=== PATIENT | male | born 1945 | race Caucasian/White ===

== ENCOUNTER 2018-06-04 14:42 | Inpatient (IN) ==
[2018-06-04 16:07] VITALS: BMI 29.3
[2018-06-04] MEDS ORDERED: HYDROCODONE/APAP 7.5 MG/325 MG TABLET PO PRN (16:09)
[2018-06-04] MEDS ORDERED: NICOTINE 14 MG PATCH TD PRN (16:09)
[2018-06-04] MEDS ORDERED: MORPHINE SULFATE 4mg INJECTION IVP PRN (16:09)
[2018-06-04] MEDS ORDERED: ACETAMINOPHEN 325 MG TABLET PO PRN (16:09)
[2018-06-04] MEDS ORDERED: ONDANSETRON 4 MG/2 ML INJECTION IVP PRN (16:09)
--- NOTE | 2018-06-04 16:24 | History & Physical Report ---
History of Present Illness Date: 06/04/18 Chief complaint: weakness HPI: This is a 73 year old male with history of atrial fibrillation, hypertension, CAD, CVA, and hyperlipidemia who presented to [facility] with generalized weakness. He was doing well until 10am this morning. He had just eaten breakfast and went to the bathroom when he had a large amount of diarrhea. He denies any dark or tarry stools. He immediately became very weak all over and had to help himself to the floor. It took him 2 hours to get to the kitchen, where the phone is in his home, to call 911. EMS arrived and found him lying on his kitchen floor. His blood pressure was in the 80's upon their arrival. In the [facility], his blood pressure improved significantly after 1 liter of normal saline. However, his heart rate was found to be in david 140-150 range in a-fib. He was given diltiazem IV and it improved to the 90's. Other findings in the ER were a WBC of 18, hemoglobin 11.4, 7% bands, creatinine of 1.54, and lactate of 4.4. Urinalysis was non-infectious. Chest xray showed nothing acute. Per verbal report, his stool was hemoccult positive. He had 2 more loose stools while in the ER. He was given a second liter of normal saline as well as 1 gram of rocephin and transferred here for further care. Upon my evaluation, he says he feels somewhat better. He remembers all of the events of today. He feels like he is going to have another episode of diarrhea and requests a bedpan. He says he has been on antibiotics recently, but he doesn't remember what for. He also says he was on a blood thinner for his a-fib , but doesn't remember the name. Neither of these medications are in the bag of medications that he brought with him. Review of Systems - Constitutional Comments: no weight loss, + fatigue today - EENMT EENMT Comments: no headache, sore throat, ear pain, or nasal discharge. - Cardiovascular Cardiovascular Comments: no chest pain, + palpitations, no leg edema, no orthopnea - Respiratory Respiratory Comments: no cough, no SOA, + wheezing - Gastrointestinal Gastrointestinal Comments: + diarrhea, no vomiting, + abdominal pain, no patient reported melena or hematemesis - Neurological Neurological Comments: no syncope or seizure, + generalized weakness Past Medical History Medical History Updates: Hypertension. CHF. iron deficiency anemia. Diabetes type II. CVA. tobacco abuse. atrial fibrillation. Hyperlipidemia Surgical History: Lumbar back X2 Family History: Diabetes Family History: As Above - Social History Smoking status: Current every day smoker Packs per day: 0.5 Substance use type: does not use Alcohol intake frequency: does not drink Current occupational exposures/hazards: No Does patient use chewing tobacco?: No Current residence: Apartment/Private Home Medications Home Medications Medication Instructions Recorded Confirmed Type Bumetanide Tab [Bumex 1 mg Tab] 1 mg PO BID 02/07/18 02/07/18 History Calcium Carbonate/Vitamin D3 2 each PO DAILY 02/07/18 02/07/18 History [Calcium 500-Vit D3 200 Tablet] Carvedilol [Coreg] 1 tab PO BIDWM 02/07/18 02/07/18 History Cyclobenzaprine [Flexeril] 10 mg PO HS 02/07/18 02/07/18 History Ferrous Sulfate 325 mg PO DAILY 02/07/18 02/07/18 History Lisinopril [Prinivil] 40 mg PO DAILY 02/07/18 02/07/18 History Loratadine 10 mg PO DAILY PRN 02/07/18 02/07/18 History Metformin HCl 1,000 mg PO WS 02/07/18 02/07/18 History Metolazone [Zaroxolyn] 2.5 mg PO DAILY 02/07/18 02/07/18 History NIFEdipine [Nifedipine ER] 90 mg PO DAILY 02/07/18 02/07/18 History Potassium Chloride [K-Tab ER] 20 meq PO DAILY 02/07/18 02/07/18 History Ranitidine [Zantac] 1 tab PO DAILY 02/07/18 02/07/18 History Apixaban [Eliquis] 5 mg PO BID #60 tab 02/09/18 Rx Aspirin *EC* [Ecotrin] 81 mg PO DAILY #30 tab 02/09/18 Rx DiltiaZEM CD [Cardizem CD 240 MG] 240 mg PO DAILY #30 cap 02/09/18 Rx DiltiaZEM CD [Cardizem CD 360 MG] 360 mg PO DAILY #30 cap 02/09/18 Rx Rosuvastatin [Crestor] 20 mg PO HS #30 tab 02/09/18 Rx Allergies Allergy/AdvReac Type Severity Reaction Status Date / Time No Known Allergies Allergy Verified 02/07/18 21:00 Exam Height/Weight/BMI: Height 5 ft 7 in Weight 85 kg Body Mass Index 29.3 - Constitutional Present: no acute distress - Routine HEENT Exam Head: Present: normocephalic, atraumatic Eye: Present: EOMI, PERRL ENT: Present: mucous membranes moist - Routine Neck Exam Present: supple - Routine Respiratory Exam Present: wheezes Comments: at bases - Routine Cardiovascular Exam Present: irregularly irregular Comments: regular rate - Routine Abdominal Exam Present: soft, tenderness, non distended Comments: tender to palpation in LUQ - Routine Extremities Exam Present: no edema, pulses intact - Routine Skin Exam Comments: Dirt and abrasions to plantar surfaces of bilateral feet - Routine Neurological Exam Present: alert, oriented X3, CN II-XII intact Results - Labs Labs: as noted in HPI - Imaging and Cardiology Chest x-ray Status: image reviewed by me (as noted in HPI) Assessment and Plan (1) Sepsis Current visit: Yes Status: Acute (2) Atrial fibrillation with RVR Current visit: No Status: Chronic (3) Generalized weakness Current visit: Yes Status: Acute (4) Diarrhea Current visit: Yes Status: Acute (5) LUIS (acute kidney injury) Current visit: Yes Status: Acute (6) Essential (primary) hypertension Current visit: No Status: Chronic (7) Atherosclerotic heart disease of [place] coronary artery without angina pectoris Problem details: Had heart cath in 01/2018 with moderate disease to LAD and RCA, treating medically. Current visit: No Status: Chronic (8) Mixed hyperlipidemia Current visit: No Status: Chronic (9) Congestive heart failure Problem details: EF 50% with echo in January 2018 Current visit: Yes Status: Chronic (10) Tobacco abuse Current visit: Yes Status: Chronic Assessment and Plan: Admit patient to ICU due to unstable vital signs just prior to transfer. Repeat basic labs,troponin, and lactate to find trend. Blood cultures pending in [place]. CT Abdomen/pelvis due to sepsis, LUQ pain, elevated lactate. Get occult stool, stool for c diff, and GI PCR panel of stool. Monitor h/h. Start protonix IV BID in the event of an UGIB and avoid blood thinners for now. Uncertain if patient is taking the Eliquis that was prescribed to him in January, as it's not in his medication bag - would hold acutely anyway. Give IVF and monitor UOP and creatinine in morning. UA was non-infectious in [facility]. Check CPK. Continue diltiazem for rate control - give 60mg oral q6hrs as we monitor BP closely. Check TSH Hold nifedipine, lisinopril, coreg, bumex, and metolazone for now. Need to reconcile home meds with pharmacy as patient's medication bag doesn't match the records. GI Prophylaxis: other Resuscitation Status: Full Code - Physician Narrative Physician: other (Layla Burgess DO) Narrative: Date: 06/04/18 Time: 161 Sepsis Assessment - Evaluation SIRS Criteria: WBC > 12,000 Severe Sepsis: lactate > 2.0 mg/dL Hospital Course Summary Disclaimer: The visit summary below is not to be considered part of the above Progress Note. Hospital Course: 06/04/18 Admit patient to ICU due to unstable vital signs just prior to transfer. Repeat basic labs,troponin, and lactate to find trend. Blood cultures pending in [place]. CT Abdomen/pelvis due to sepsis, LUQ pain, elevated lactate. Get occult stool, stool for c diff, and GI PCR panel of stool. Monitor h/h. Start protonix IV BID in the event of an UGIB and avoid blood thinners for now. Uncertain if patient is taking the Eliquis that was prescribed to him in January, as it's not in his medication bag - would hold acutely anyway. Give IVF and monitor UOP and creatinine in morning. UA was non-infectious in [place]. Check CPK. Continue diltiazem for rate control - give 60mg oral q6hrs as we monitor BP closely. Check TSH Hold nifedipine, lisinopril, coreg, bumex, and metolazone for now. Need to reconcile home meds with pharmacy as patient's medication bag doesn't match the records.
[2018-06-04] MEDS: LR 1,000 ML IV SCH (16:35)
[2018-06-04] MEDS ORDERED: LORATADINE 10 MG TABLET PO PRN (17:09)
[2018-06-04] MEDS: PIPERACILLIN/TAZOBACTAM 3.375 GM in NS 100 ML IV SCH (19:06)
[2018-06-04] MEDS: MetroNIDAZOLE PB 500 MG/100 ML BAG IV SCH (20:19)
[2018-06-04] MEDS: DiltiaZEM IR 60 MG TABLET PO SCH (20:51)
[2018-06-04] MEDS: ROSUVASTATIN 20 MG TABLET PO SCH (20:51)
[2018-06-04] MEDS: PANTOPRAZOLE 40 MG INJECTION IVP SCH (20:52)
[2018-06-05] MEDS: PIPERACILLIN/TAZOBACTAM 3.375 GM in NS 100 ML IV SCH ×2 (00:35→05:18)
[2018-06-05] MEDS: MetroNIDAZOLE PB 500 MG/100 ML BAG IV SCH ×3 (03:45→18:20)
[2018-06-05] MEDS: DiltiaZEM IR 60 MG TABLET PO SCH ×4 (06:51→20:46)
[2018-06-05] MEDS: LR 1,000 ML IV SCH ×2 (08:05→16:04)
[2018-06-05] MEDS ORDERED: NICOTINE PATCH REMOVAL TD PRN (09:00)
[2018-06-05] MEDS: PANTOPRAZOLE 40 MG INJECTION IVP SCH ×2 (09:16→20:46)
--- NOTE | 2018-06-05 09:58 | CT Scan Report ---
Indication: sepsis, abdominal pain PROCEDURE: CT abdomen pelvis wo con: Encounter: Initial Comparison: None Technique: Axial CT images were performed through the abdomen and pelvis without intravenous contrast. Coronal and sagittal two-dimensional reformats. Automated Exposure Control and Iterative Reconstruction dose reducing techniques were utilized. Findings: The lung bases are clear. Respiratory motion artifact. The unenhanced contours of the liver unremarkable. Multiple gallstones within the gallbladder extending into the gallbladder neck. The spleen is unremarkable. The pancreas, adrenal glands and kidneys are within normal limits for age. Arterial atherosclerotic plaque. No abdominal or pelvic lymphadenopathy. Bladder is normal. Prostate and rectum are normal. No free fluid. There is inflammation surrounding the splenic flexure of the colon with wall thickening. No significant diverticular disease appreciated. There are fluid-filled small and large bowel loops. The appendix is normal. No evidence of a bowel obstruction. Impression: 1. Inflammation in the splenic flexure region of the colon could represent infectious, inflammatory or ischemic colitis. 2. Cholelithiasis There is a preliminary report by [facility]. .
[2018-06-05] MEDS: CALCIUM 500 + VIT D 200 TABLET PO SCH (10:42)
[2018-06-05] MEDS: CARVEDILOL 3.125 MG TABLET PO SCH ×2 (10:42→18:33)
[2018-06-05] MEDS ORDERED: PIPERACILLIN/TAZOBACTAM 3.375 GM in D5W 100 ML IV SCH (11:00)
--- NOTE | 2018-06-05 12:42 | Progress Note ---
- Date 06/05/18 Subjective: Patient feels much better today. Has had multiple, small, loose stools that have been somewhat bloody since admission. Had a 5 beat run of asymptomatic v-tach last night. Eating breakfast when I saw him and tolerating it well. Objective Vital signs: Temperature 98.7 F 06/05/18 08:00 Pulse Rate 89 06/05/18 08:15 Respiratory Rate 33 H 06/05/18 08:15 Blood Pressure 170/74 H 06/05/18 08:00 Pulse Oximetry 84 L 06/05/18 08:15 Height/Weight/BMI: Height 5 ft 7 in Weight 86.5 kg Body Mass Index 29.3 - Constitutional Present: no acute distress - Routine Respiratory Exam Present: CTA bilaterally - Routine Cardiovascular Exam Present: RRR - Routine Abdominal Exam Present: soft, non distended Comments: mild LUQ tenderness, no r/r/g. - Routine Extremities Exam Present: no edema - Routine Skin Exam Present: intact, dry, warm - Routine Neurological Exam Present: alert, oriented X3, CN II-XII intact Results - Labs CBC & Chem 7: 06/05/18 04:12 06/05/18 04:12 Microbiology Results: Microbiology 06/04/18 14:30 Peripheral/Iv Start Blood Culture - Preliminary Culture Initiated - Results Pending 06/04/18 14:30 Peripheral/Iv Start Blood Culture - Preliminary Culture Initiated - Results Pending Assessment and Plan (1) Sepsis Current visit: Yes Status: Acute (2) Atrial fibrillation with RVR Current visit: No Status: Chronic (3) Generalized weakness Current visit: Yes Status: Acute (4) Diarrhea Current visit: Yes Status: Acute (5) LUIS (acute kidney injury) Current visit: Yes Status: Acute (6) Essential (primary) hypertension Current visit: No Status: Chronic (7) Atherosclerotic heart disease of [place] coronary artery without angina pectoris Problem details: Had heart cath in 01/2018 with moderate disease to LAD and RCA, treating medically. Current visit: No Status: Chronic (8) Mixed hyperlipidemia Current visit: No Status: Chronic (9) Congestive heart failure Problem details: EF 50% with echo in January 2018 Current visit: Yes Status: Chronic (10) Tobacco abuse Current visit: Yes Status: Chronic Assessment and Plan: Sepsis - present on admission with WBC, tachy, low BP, high lactate, LUIS Colitis - likely infectious given clinical scenario GI bleeding Atrial fibrillation with RVR V-tach, non-sustained LUIS HTN CAD Dyslipidemia CHF WBC trended up overnight, but afebrile. Blood cultures pending Lactate trended down - was 4.[address] [place] [address] Abdomen/pelvis shows colitis - likely infectious given clinical scenario. Occult stool positive - likely due to colitis - will continue BID PPI however for now and hold Eliquis. Restart pending clinical course. On Zosyn and flagyl - change to rocephin and flagyl today. C diff negative. Need to ensure patient's med list is correct tomorrow with [facility] as his list doesn't match what's in his bag of medications. Most notably eliquis. Continue diltiazem for rate control - change back to once daily dosing in the morning Restart nifedipine and coreg today D/c IVF Continue to hold bumex, lisinopril, and metolazone for now - likely need to restart soon Transfer to floor, up out of bed. DVT Prophylaxis: SCD's GI Prophylaxis: Protonix Resuscitation Status: Full Code - Time spent with patient Time with patient PN: 15 minutes - Physician Narrative Narrative: Date: 06/05/18 Time: 1230 Hospital Course Summary Disclaimer: The visit summary below is not to be considered part of the above Progress Note. Hospital Course: 06/04/18 Admit patient to ICU due to unstable vital signs just prior to transfer. Repeat basic labs,troponin, and lactate to find trend. Blood cultures pending in [place]. CT Abdomen/pelvis due to sepsis, LUQ pain, elevated lactate. Get occult stool, stool for c diff, and GI PCR panel of stool. Monitor h/h. Start protonix IV BID in the event of an UGIB and avoid blood thinners for now. Uncertain if patient is taking the Eliquis that was prescribed to him in January, as it's not in his medication bag - would hold acutely anyway. Give IVF and monitor UOP and creatinine in morning. UA was non-infectious in [place]. Check CPK. Continue diltiazem for rate control - give 60mg oral q6hrs as we monitor BP closely. Check TSH Hold nifedipine, lisinopril, coreg, bumex, and metolazone for now. Need to reconcile home meds with pharmacy as patient's medication bag doesn't match the records. 06/05/18 WBC trended up overnight, but afebrile. Blood cultures pending Lactate trended down - was 4.[address] [place] [address] Abdomen/pelvis shows colitis - likely infectious given clinical scenario. Occult stool positive - likely due to colitis - will continue BID PPI however for now and hold Eliquis. Restart pending clinical course. On Zosyn and flagyl - change to rocephin and flagyl today. C diff negative. Need to ensure patient's med list is correct tomorrow with [facility] as his list doesn't match what's in his bag of medications. Most notably eliquis. Continue diltiazem for rate control - change back to once daily dosing in the morning Restart nifedipine and coreg today D/c IVF Continue to hold bumex, lisinopril, and metolazone for now - likely need to restart soon Transfer to floor, up out of bed.
[2018-06-05] MEDS: CEFTRIAXONE 1 G in NS 100 ML IV SCH (13:57)
[2018-06-05] MEDS ORDERED: FUROSEMIDE 20 MG/2 ML INJECTION IVP ONE ×2 (18:51→20:00)
[2018-06-05] MEDS: ROSUVASTATIN 20 MG TABLET PO SCH (20:46)
--- NOTE | 2018-06-05 21:13 | XRay Report ---
EXAM: XR chest 1V HISTORY: hypoxia COMPARISON: Prior examination dated 02/07/2018. FINDINGS: The cardiomediastinal silhouette is normal. The mediastinum is not widened. The trachea is midline. The pulmonary vascularity is not engorged. The lung stroud are clear and the costophrenic angles are sharp. The bony thorax is stable. There is artifact from cardiac monitoring lead wires over the chest. IMPRESSION: No acute cardiopulmonary process is identified. .
[2018-06-06] MEDS: MetroNIDAZOLE PB 500 MG/100 ML BAG IV SCH ×3 (02:59→18:38)
[2018-06-06] MEDS: DiltiaZEM IR 60 MG TABLET PO SCH ×4 (06:10→22:10)
[2018-06-06] MEDS: PANTOPRAZOLE 40 MG INJECTION IVP SCH (08:42)
[2018-06-06] MEDS: CARVEDILOL 3.125 MG TABLET PO SCH ×2 (08:43→17:03)
[2018-06-06] MEDS: CALCIUM 500 + VIT D 200 TABLET PO SCH (08:43)
--- NOTE | 2018-06-06 12:27 | Progress Note ---
- Date 06/06/18 Subjective: Barry is feeling better. His stools have slowed down a lot. He has minimal pain to LLQ. He doesn't have much of an appetite but denies n/v. He denies feeling short of breath as long as oxygen is in place. No chest pain. He was up in his chair x1 hour this am and now feels tired. Objective Vital signs: Temperature 97.7 F 06/06/18 08:01 Pulse Rate 91 06/06/18 08:01 Respiratory Rate 18 06/06/18 08:01 Blood Pressure 137/67 06/06/18 08:01 Pulse Oximetry 90 06/06/18 08:01 Height/Weight/BMI: Height 1.7 m Weight 89.9 kg Body Mass Index 29.3 - Constitutional Present: no acute distress, well nourished, well developed - Routine HEENT Exam Head: Present: normocephalic Eye: Present: PERRL. Absent: conjunctival icterus, scleral injection - Routine Respiratory Exam Present: decreased breath sounds, wheezes (very faint) - Routine Cardiovascular Exam Present: S1, S2, irregularly irregular - Routine Abdominal Exam Present: soft, normoactive bowel sounds, tenderness (mild LLQ), non distended - Routine Extremities Exam Present: edema (trace BLE) - Routine Musculoskeletal Exam Musculoskeletal: Present: moving extremities well - Routine Skin Exam Present: intact, dry, warm - Routine Neurological Exam Present: alert, oriented X3, CN II-XII intact, normal speech - Routine Psychiatric Exam Present: normal affect, normal thought process, cooperative Results - Labs CBC & Chem 7: 06/06/18 05:08 06/06/18 05:08 Microbiology Results: Microbiology 06/04/18 14:30 Peripheral/Iv Start Blood Culture - Preliminary No Growth After 1 Day 06/04/18 14:30 Peripheral/Iv Start Blood Culture - Preliminary No Growth After 1 Day Assessment and Plan (1) Sepsis Current visit: Yes Status: Acute (2) Atrial fibrillation with RVR Current visit: No Status: Chronic (3) Atherosclerotic heart disease of [place] coronary artery without angina pectoris Problem details: Had heart cath in 01/2018 with moderate disease to LAD and RCA, treating medically. Current visit: No Status: Chronic (4) LUIS (acute kidney injury) Current visit: Yes Status: Acute (5) Generalized weakness Current visit: Yes Status: Acute (6) Congestive heart failure Problem details: EF 50% with echo in January 2018 Current visit: Yes Status: Chronic (7) Tobacco abuse Current visit: Yes Status: Chronic Assessment and Plan: Assessment Sepsis - present on admission with WBC, tachy, low BP, high lactate, LUIS Colitis - likely infectious given clinical scenario Heme positive stool/GI bleeding Atrial fibrillation with RVR V-tach, non-sustained LUIS CAD HTN Dyslipidemia CHF - chronic diastolic heart failure Chronic respiratory failure - 3L at home Plan WBC improved to 15.8. Cont metronidazole/Rocephin. Hgb down to 8.2 but stool frequency is decreasing. Cont to hold ASA/Eliquis. Cont PPI. Renal function stable - cr 1.0. Weight is climbing - resume bumex but will cont to hold metolazone and lisinopril. Resume Coreg. Continue Cardizem and nifedipine Increase activity - consult pt/ot DVT Prophylaxis: SCD's GI Prophylaxis: Protonix Resuscitation Status: Full Code - Time spent with patient Time with patient PN: 25 minutes - Physician Narrative Physician: Alex Healy MD Narrative: Date: 06/06/18 Time: 1455 Have independently interviewed & examined pt. Chart reviewed. Case D/W with CM & my GAS CHARGER. Care plan developed with my supervision; agree with above. Improving, but not back to normal. Stool frequency decreased-not feeling ab cramping or bloating. Appetite decreased. Breathing feels more short-not having cough or congestion, but laboring to breath more than baseline. Strength improving, but still very weak and tired-activities taxing. Lungs: decreased bilaterally, little air movement. No distress on O2. CV: irregular AB: soft nt, bs decreased MSE: awake alert appropriate Plan: Continue with antibiotic therapy. Increase activities as able. Diuretics restarted-BP stable. Renal status stable. WBC with gradual decrease. Will start SCD for DVT prevention-hold anticoagulates secondary to anemia and concern for GI bleed at presentation. Monitor lab. Hospital Course Summary Disclaimer: The visit summary below is not to be considered part of the above Progress Note. Hospital Course: 06/04/18 Admit patient to ICU due to unstable vital signs just prior to transfer. Repeat basic labs,troponin, and lactate to find trend. Blood cultures pending in [place]. CT Abdomen/pelvis due to sepsis, LUQ pain, elevated lactate. Get occult stool, stool for c diff, and GI PCR panel of stool. Monitor h/h. Start Protonix IV BID in the event of an UGIB and avoid blood thinners for now. Uncertain if patient is taking the Eliquis that was prescribed to him in January, as it's not in his medication bag - would hold acutely anyway. Give IVF and monitor UOP and creatinine in morning. UA was non-infectious in [place]. Check CPK. Continue diltiazem for rate control - give 60mg oral q6hrs as we monitor BP closely. Check TSH Hold nifedipine, lisinopril, Coreg, Bumex, and metolazone for now. Need to reconcile home meds with pharmacy as patient's medication bag doesn't match the records. 06/05/18 WBC trended up overnight, but afebrile. Blood cultures pending Lactate trended down - was 4.[address] [place] [address] Abdomen/pelvis shows colitis - likely infectious given clinical scenario. Occult stool positive - likely due to colitis - will continue BID PPI however for now and hold Eliquis. Restart pending clinical course. On Zosyn and Flagyl - change to Rocephin and Flagyl today. C diff negative. Need to ensure patient's med list is correct tomorrow with [facility] as his list doesn't match what's in his bag of medications. Most notably Eliquis. Continue diltiazem for rate control - change back to once daily dosing in the morning. Restart nifedipine and Coreg today. D/C IVF. Continue to hold Bumex, lisinopril, and metolazone for now - likely need to restart soon. Transfer to floor, up out of bed. 06/06/18 WBC improved to 15.8. Cont metronidazole/Rocephin. Hgb down to 8.2 but stool frequency is decreasing. Cont to hold ASA/Eliquis. Cont PPI. Renal function stable - cr 1.0. Weight is climbing - resume Bumex but will cont to hold metolazone and lisinopril. Resume Coreg. Continue Cardizem and nifedipine Increase activity - consult pt/ot
[2018-06-06] MEDS: CEFTRIAXONE 1 G in NS 100 ML IV SCH (12:39)
[2018-06-06] MEDS: PANTOPRAZOLE 40 MG TABLET PO SCH (17:03)
[2018-06-06] MEDS: ROSUVASTATIN 20 MG TABLET PO SCH (22:11)
[2018-06-06] MEDS: BUMETANIDE 1 MG TABLET PO SCH (22:11)
[2018-06-07] MEDS: MetroNIDAZOLE PB 500 MG/100 ML BAG IV SCH ×3 (03:45→18:15)
[2018-06-07] MEDS: DiltiaZEM IR 60 MG TABLET PO SCH ×4 (07:16→21:47)
[2018-06-07] MEDS: PANTOPRAZOLE 40 MG TABLET PO SCH ×2 (07:16→18:15)
--- NOTE | 2018-06-07 08:53 | XRay Report ---
INDICATION: Dyspnea PROCEDURE: CHEST 2-VIEWS UPRIGHT (PA & LAT) Encounter: Initial COMPARISON: June 05, 2018 Findings: The lungs are stable in appearance without new focal airspace consolidation. There is no pleural effusion or pneumothorax. The heart size, pulmonary vascularity and mediastinal contours are unchanged. IMPRESSION: Stable appearance of the chest without acute cardiopulmonary disease. .
[2018-06-07] MEDS: CALCIUM 500 + VIT D 200 TABLET PO SCH (09:09)
[2018-06-07] MEDS: CARVEDILOL 3.125 MG TABLET PO SCH ×2 (09:09→18:13)
[2018-06-07] MEDS: BUMETANIDE 1 MG TABLET PO SCH ×2 (09:09→21:46)
--- NOTE | 2018-06-07 11:31 | Progress Note ---
- Date 06/07/18 Subjective: Brush to show improvement. He denies any left lower quadrant abdominal pain today. He states that he has not had any diarrhea since Wednesday, and in fact, hasn't had a bowel movement since then either. He denies feeling bloated. He denies any nausea, but reports that he doesn't have much of an appetite. He states his breathing is doing well. He denies chest pain. He is not feeling as tired as he was yesterday. Objective Vital signs: Temperature 97.9 F 06/07/18 07:44 Pulse Rate 95 06/07/18 08:00 Respiratory Rate 20 06/07/18 07:44 Blood Pressure 142/63 H 06/07/18 07:44 Pulse Oximetry 90 06/07/18 07:44 Height/Weight/BMI: Height 1.7 m Weight 90.7 kg Body Mass Index 29.3 - Constitutional Present: no acute distress, well nourished, well developed - Routine HEENT Exam Head: Present: normocephalic Eye: Present: PERRL. Absent: conjunctival icterus, scleral injection - Routine Respiratory Exam Present: decreased breath sounds, wheezes, crackles - Routine Cardiovascular Exam Present: irregularly irregular - Routine Abdominal Exam Present: non tender, distended. Absent: normoactive bowel sounds (hypoactive) - Routine Extremities Exam Present: edema (trace BLE) - Routine Skin Exam Present: dry, warm - Routine Neurological Exam Present: alert, oriented X3, CN II-XII intact, normal speech - Routine Psychiatric Exam Present: normal affect, normal thought process, cooperative Results - Labs CBC & Chem 7: 06/07/18 06:04 06/07/18 06:04 Microbiology Results: Microbiology 06/04/18 14:30 Peripheral/Iv Start Blood Culture - Preliminary No Growth After 2 Days 06/04/18 14:30 Peripheral/Iv Start Blood Culture - Preliminary No Growth After 2 Days Assessment and Plan (1) Sepsis Current visit: Yes Status: Acute (2) Atrial fibrillation with RVR Current visit: No Status: Chronic (3) Atherosclerotic heart disease of [place] coronary artery without angina pectoris Problem details: Had heart cath in 01/2018 with moderate disease to LAD and RCA, treating medically. Current visit: No Status: Chronic (4) LUIS (acute kidney injury) Current visit: Yes Status: Acute (5) Generalized weakness Current visit: Yes Status: Acute (6) Congestive heart failure Problem details: EF 50% with echo in January 2018 Current visit: Yes Status: Chronic (7) Tobacco abuse Current visit: Yes Status: Chronic Assessment and Plan: Assessment Sepsis - present on admission with WBC, tachy, low BP, high lactate, LUIS Colitis - likely infectious given clinical scenario Heme positive stool/GI bleeding secondary to above Hyponatremia, not POA Atrial fibrillation with RVR V-tach, non-sustained Elevated creatinine CAD HTN Dyslipidemia CHF - chronic diastolic heart failure Chronic respiratory failure - 3L at home Plan WBC improved to 15.1. Cont metronidazole/Rocephin. Hgb 8.0 - Cont to hold ASA/Eliquis. Cont PPI. Increased abdominal distention, hypoactive bowel sounds - concerned for ileus. Start bowel regimen. Na down to 135; renal functions with increase, BUN 23 and creatinine 1.4; weight continues to trend up. 86.5 --> 90.7 kg. Requiring 5L of oxygen to maintain saturations. Bumex resumed yesterday; metolazone and lisinopril remain on hold. Yesterday's CXR personally reviewed - stable but clinically concerned about failure. Will repeat CXR in am. DVT Prophylaxis: SCD's GI Prophylaxis: Protonix Resuscitation Status: Full Code - Time spent with patient Time with patient PN: 25 minutes - Physician Narrative Physician: Alex Healy MD Narrative: Date: 06/07/18 Time: 3 Have independently interviewed and examined pt. Chart reviewed. Case discussed with my [employer]. Care plan developed with my supervision; agree with above. Doing fair. Breathing feels short-hard to take deep breaths. No much cough/ congestion. No pain with breathing. Appetite decreased-able to take water in. Slight nausea. Feels full in ab. Some ab cramping and bloating. No loose stools - reports not passing stool (feels his diarrhea 'cleaned him out') but not reporting flatus. Lungs: decreased, little air movement CV: regular AB: soft obese, slightly distended, BS decreased EXT: trace edema Plan: Will continue with Rocephin and metronidazole for coverage. Concern that breathing difficulty is being exacerbated by restrict deficit due to increase ab girth. Will check KUB/Upright. Work on bowel function. Encourage ambulation to help GI and pulm function. Hospital Course Summary Disclaimer: The visit summary below is not to be considered part of the above Progress Note. Hospital Course: 06/04/18 Admit patient to ICU due to unstable vital signs just prior to transfer. Repeat basic labs,troponin, and lactate to find trend. Blood cultures pending in [place] [place] Abdomen/pelvis due to sepsis, LUQ pain, elevated lactate. Get occult stool, stool for c diff, and GI PCR panel of stool. Monitor h/h. Start Protonix IV BID in the event of an UGIB and avoid blood thinners for now. Uncertain if patient is taking the Eliquis that was prescribed to him in January, as it's not in his medication bag - would hold acutely anyway. Give IVF and monitor UOP and creatinine in morning. UA was non-infectious in [place]. Check CPK. Continue diltiazem for rate control - give 60mg oral q6hrs as we monitor BP closely. Check TSH Hold nifedipine, lisinopril, Coreg, Bumex, and metolazone for now. Need to reconcile home meds with pharmacy as patient's medication bag doesn't match the records. 06/05/18 WBC trended up overnight, but afebrile. Blood cultures pending Lactate trended down - was 4.[address] [place] [address] Abdomen/pelvis shows colitis - likely infectious given clinical scenario. Occult stool positive - likely due to colitis - will continue BID PPI however for now and hold Eliquis. Restart pending clinical course. On Zosyn and Flagyl - change to Rocephin and Flagyl today. C diff negative. Need to ensure patient's med list is correct tomorrow with [facility] as his list doesn't match what's in his bag of medications. Most notably Eliquis. Continue diltiazem for rate control - change back to once daily dosing in the morning. Restart nifedipine and Coreg today. D/C IVF. Continue to hold Bumex, lisinopril, and metolazone for now - likely need to restart soon. Transfer to floor, up out of bed. 06/06/18 WBC improved to 15.8. Cont metronidazole/Rocephin. Hgb down to 8.2 but stool frequency is decreasing. Cont to hold ASA/Eliquis. Cont PPI. Renal function stable - cr 1.0. Weight is climbing - resume Bumex but will cont to hold metolazone and lisinopril. Resume Coreg. Continue Cardizem and nifedipine Increase activity - consult pt/ot 06/07/18 WBC improved to 15.1. Cont metronidazole/Rocephin. Hgb 8.0 - Cont to hold ASA/Eliquis. Cont PPI. Increased abdominal distention, hypoactive bowel sounds - concerned for ileus. Start bowel regimen. Na down to 135; renal functions with increase, BUN 23 and creatinine 1.4; weight continues to trend up. 86.5 --> 90.7 kg. Requiring 5L of oxygen to maintain saturations. Bumex resumed yesterday; metolazone and lisinopril remain on hold. Yesterday's CXR personally reviewed - stable but clinically concerned about failure. Will repeat CXR in am.
[2018-06-07] MEDS ORDERED: BISACODYL 10 MG SUPPOSITORY RECTALLY PRN (11:34)
[2018-06-07] MEDS: SENNA + DOCUSATE TABLET PO SCH ×2 (11:59→21:47)
[2018-06-07] MEDS: POLYETHYL GLYCOL 3350 17gm PACKET PO SCH (11:59)
[2018-06-07] MEDS: CEFTRIAXONE 1 G in D5W 100 ML IV SCH (13:24)
[2018-06-07] MEDS ORDERED: FALL RISK - PHARMACY CONSULT MC ONE (16:33)
[2018-06-07] MEDS: ALBUTEROL/IPRATROPIUM 2.5mg-0.5mg/3ml NEB AEROSOL PRN ×2 (18:25→23:16)
[2018-06-07] MEDS: ROSUVASTATIN 20 MG TABLET PO SCH (21:47)
[2018-06-08] MEDS: MetroNIDAZOLE PB 500 MG/100 ML BAG IV SCH ×3 (03:28→18:20)
[2018-06-08] MEDS: DiltiaZEM IR 60 MG TABLET PO SCH ×4 (06:29→21:27)
[2018-06-08] MEDS: PANTOPRAZOLE 40 MG TABLET PO SCH ×2 (06:29→17:07)
[2018-06-08] MEDS: BUMETANIDE 1 MG TABLET PO SCH ×2 (08:29→21:28)
[2018-06-08] MEDS: POLYETHYL GLYCOL 3350 17gm PACKET PO SCH (08:29)
[2018-06-08] MEDS: SENNA + DOCUSATE TABLET PO SCH ×2 (08:33→21:27)
[2018-06-08] MEDS: CALCIUM 500 + VIT D 200 TABLET PO SCH (08:33)
[2018-06-08] MEDS: CARVEDILOL 3.125 MG TABLET PO SCH ×2 (08:34→17:06)
--- NOTE | 2018-06-08 09:37 | XRay Report ---
INDICATION: wheezing, crackles, history of CHF PROCEDURE: CHEST 2-VIEWS UPRIGHT (PA & LAT) Encounter: Initial COMPARISON: June 07, 2018 FINDINGS: Developing airspace disease in the right lower lobe. Left lung appears clear. No pneumothorax. Trace right effusion. Heart size and mediastinal contours are stable. Pulmonary vascularity is normal. Impression: Developing right lower lobe airspace disease could be due to atelectasis or pneumonia. .
--- NOTE | 2018-06-08 09:39 | XRay Report ---
Indication: Ab distension, ? ileus PROCEDURE: XR abdomen 2V: Encounter: Initial Comparison: CT abdomen dated June 04, 2018 Findings: No free air. Scattered nondifferential air-fluid levels seen with increasing distention of small bowel measuring up to 3.4 cm in the left abdomen. Scattered colonic gas is present with a small amount of rectal gas seen. Bony structures are unremarkable. Impression: Mild small bowel distention with nondifferential air-fluid levels could represent ileus or gastroenteritis. .
[2018-06-08] MEDS: CEFTRIAXONE 1 G in D5W 100 ML IV SCH (12:24)
--- NOTE | 2018-06-08 14:13 | Progress Note ---
- Date 06/08/18 Subjective: Barry is seen this afternoon. He states that he is not feeling any better however is unable to describe how he feels. He is noted to be on 6 liters of oxygen (baseline 3) and he feels his breathing is "rough". Denies having chest pain. Noted abdominal distension. No bowel movement since 06/05/18. Objective Vital signs: Temperature 97.9 F 06/07/18 07:44 Pulse Rate 97 06/08/18 08:00 Respiratory Rate 20 06/08/18 07:39 Blood Pressure 139/62 06/08/18 07:39 Pulse Oximetry 92 06/08/18 07:39 Height/Weight/BMI: Height 1.7 m Weight 92.4 kg Body Mass Index 29.3 - Constitutional Present: no acute distress, well nourished, well developed - Routine HEENT Exam Eye: Present: EOMI ENT: Present: mucous membranes moist, dentition normal - Routine Respiratory Exam Present: diminished air movement. Absent: wheezes - Routine Cardiovascular Exam Present: RRR, S1, S2. Absent: murmur - Routine Abdominal Exam Present: soft, normoactive bowel sounds, non distended. Absent: tenderness - Routine Back/Spine/Pelvis Exam Back/Spine: Present: full ROM - Routine Skin Exam Present: intact, dry, warm - Routine Neurological Exam Present: alert, oriented X3, CN II-XII intact - Routine Lymphatic Exam Lymphatic: Absent: adenopathy - Routine Psychiatric Exam Present: cooperative Results - Labs CBC & Chem 7: 06/08/18 05:46 06/08/18 05:46 Microbiology Results: Microbiology 06/04/18 14:30 Peripheral/Iv Start Blood Culture - Preliminary No Growth After 3 Days 06/04/18 14:30 Peripheral/Iv Start Blood Culture - Preliminary No Growth After 3 Days Assessment and Plan (1) Sepsis Current visit: Yes Status: Acute (2) Atrial fibrillation with RVR Current visit: No Status: Chronic (3) Atherosclerotic heart disease of [place] coronary artery without angina pectoris Problem details: Had heart cath in 01/2018 with moderate disease to LAD and RCA, treating medically. Current visit: No Status: Chronic (4) LUIS (acute kidney injury) Current visit: Yes Status: Acute (5) Generalized weakness Current visit: Yes Status: Acute (6) Congestive heart failure Problem details: EF 50% with echo in January 2018 Current visit: Yes Status: Chronic (7) Tobacco abuse Current visit: Yes Status: Chronic Assessment and Plan: Assessment Sepsis - present on admission with WBC, tachy, low BP, high lactate, LUIS Colitis - likely infectious given clinical scenario Heme positive stool/GI bleeding secondary to above Hyponatremia, not POA Atrial fibrillation with RVR V-tach, non-sustained Elevated creatinine CAD HTN Dyslipidemia CHF - chronic diastolic heart failure Chronic respiratory failure - 3L at home Plan WBC stable at 15. Blood cultures remains negative. Cont metronidazole/Rocephin. Abd Xray revels distension. Asked nursing staff to give Dulcolax sup. Last BM 06/05 Increased oxygen demands up to 6 liters. Noted weight is up a proximal 27 kilograms since admission. Resumed Bumex 1 milligram twice a day for diuresing NA continues to trend down. Noted PO intake yesterday over 2200ML Will add oral fluid restriction of 1800ML/24hrs Continue to follow CBC and BMP daily Resuscitation Status: Full Code - Physician Narrative Physician: Alex Healy MD Narrative: Date: 06/08/18 Time: 1751 Have independently interviewed and examined pt. Chart reviewed. 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 Care plan developed with my supervision; agree with above. Not feeling as rough this evening. Did have stool output about 30 minutes post enema-helped belly to feel better. Another stool came this afternoon. Notes appetite still very decreased. Breathing fair-feels short, but little cough or congestion. Not been up moving much today due to feeling rough earlier. Lungs: decreased, occasional wheeze/crackle CV: regular Ab: soft Obese, mild distention, BS decreased EXT: trace edema MSE: awake alert Plan: Continue antibiotics. Work on bowel motivation. Add IS to help pulmonary status. Will add routine DuoNeb and budesonide to help breathing. Encourage ambulation. Monitor lab. Hospital Course Summary Disclaimer: The visit summary below is not to be considered part of the above Progress Note. Hospital Course: 06/04/18 Admit patient to ICU due to unstable vital signs just prior to transfer. Repeat basic labs,troponin, and lactate to find trend. Blood cultures pending in [place] [place] Abdomen/pelvis due to sepsis, LUQ pain, elevated lactate. Get occult stool, stool for c diff, and GI PCR panel of stool. Monitor h/h. Start Protonix IV BID in the event of an UGIB and avoid blood thinners for now. Uncertain if patient is taking the Eliquis that was prescribed to him in January, as it's not in his medication bag - would hold acutely anyway. Give IVF and monitor UOP and creatinine in morning. UA was non-infectious in [place]. Check CPK. Continue diltiazem for rate control - give 60mg oral q6hrs as we monitor BP closely. Check TSH Hold nifedipine, lisinopril, Coreg, Bumex, and metolazone for now. Need to reconcile home meds with pharmacy as patient's medication bag doesn't match the records. 06/05/18 WBC trended up overnight, but afebrile. Blood cultures pending Lactate trended down - was 4.[address] [place] [address] Abdomen/pelvis shows colitis - likely infectious given clinical scenario. Occult stool positive - likely due to colitis - will continue BID PPI however for now and hold Eliquis. Restart pending clinical course. On Zosyn and Flagyl - change to Rocephin and Flagyl today. C diff negative. Need to ensure patient's med list is correct tomorrow with [facility] as his list doesn't match what's in his bag of medications. Most notably Eliquis. Continue diltiazem for rate control - change back to once daily dosing in the morning. Restart nifedipine and Coreg today. D/C IVF. Continue to hold Bumex, lisinopril, and metolazone for now - likely need to restart soon. Transfer to floor, up out of bed. 06/06/18 WBC improved to 15.8. Cont metronidazole/Rocephin. Hgb down to 8.2 but stool frequency is decreasing. Cont to hold ASA/Eliquis. Cont PPI. Renal function stable - cr 1.0. Weight is climbing - resume Bumex but will cont to hold metolazone and lisinopril. Resume Coreg. Continue Cardizem and nifedipine Increase activity - consult pt/ot 06/07/18 WBC improved to 15.1. Cont metronidazole/Rocephin. Hgb 8.0 - Cont to hold ASA/Eliquis. Cont PPI. Increased abdominal distention, hypoactive bowel sounds - concerned for ileus. Start bowel regimen. Na down to 135; renal functions with increase, BUN 23 and creatinine 1.4; weight continues to trend up. 86.5 --> 90.7 kg. Requiring 5L of oxygen to maintain saturations. Bumex resumed yesterday; metolazone and lisinopril remain on hold. Yesterday's CXR personally reviewed - stable but clinically concerned about failure. Will repeat CXR in am. 06/08/18 WBC stable at 15. Blood cultures remains negative. Cont metronidazole/Rocephin. Abd Xray revels distension. Asked nursing staff to give Dulcolax sup. Last BM 06/05 Increased oxygen demands up to 6 liters. Noted weight is up a proximal 27 kilograms since admission. Resumed Bumex 1 milligram twice a day for diuresing NA continues to trend down. Noted PO intake yesterday over 2200ML Will add oral fluid restriction of 1800ML/24hrs Continue to follow CBC and BMP daily
[2018-06-08] MEDS: ALBUTEROL/IPRATROPIUM 2.5mg-0.5mg/3ml NEB AEROSOL SCH (20:30)
[2018-06-08] MEDS: BUDESONIDE INH.SOLN 0.5mg/2ml NEB AEROSOL SCH (20:31)
[2018-06-08] MEDS: ROSUVASTATIN 20 MG TABLET PO SCH (21:27)
[2018-06-09] MEDS: MetroNIDAZOLE PB 500 MG/100 ML BAG IV SCH ×3 (02:42→18:11)
[2018-06-09] MEDS: BUDESONIDE INH.SOLN 0.5mg/2ml NEB AEROSOL SCH ×2 (06:25→19:51)
[2018-06-09] MEDS: ALBUTEROL/IPRATROPIUM 2.5mg-0.5mg/3ml NEB AEROSOL SCH ×3 (06:25→16:19)
[2018-06-09] MEDS: DiltiaZEM IR 60 MG TABLET PO SCH ×4 (07:24→20:41)
[2018-06-09] MEDS: PANTOPRAZOLE 40 MG TABLET PO SCH ×2 (07:24→17:45)
[2018-06-09] MEDS: CALCIUM 500 + VIT D 200 TABLET PO SCH (08:41)
[2018-06-09] MEDS: BUMETANIDE 1 MG TABLET PO SCH ×2 (08:41→20:39)
[2018-06-09] MEDS: CARVEDILOL 3.125 MG TABLET PO SCH ×2 (08:41→17:45)
[2018-06-09] MEDS: POLYETHYL GLYCOL 3350 17gm PACKET PO SCH ×2 (08:42→08:50)
[2018-06-09] MEDS: SENNA + DOCUSATE TABLET PO SCH ×3 (08:42→20:40)
[2018-06-09] MEDS: CEFTRIAXONE 1 G in D5W 100 ML IV SCH (13:16)
--- NOTE | 2018-06-09 17:24 | Progress Note ---
- Date 06/09/18 Subjective: Overall Barry is feeling better. He denies feeling SOA at rest and thinks the breathing treatments have been helpful. He denies chest pain. He denies abd pain or bloating. He's had a few BM since yesterday and feels better. His appetite is still poor, but he denies n/v. He noted increase in swelling to his arms. He's working on increasing his activity - sat in the chair for a couple hours earlier today. Objective Vital signs: Temperature 97.4 F 06/09/18 15:00 Pulse Rate 77 06/09/18 16:00 Respiratory Rate 20 06/09/18 16:19 Blood Pressure 117/55 06/09/18 15:00 Pulse Oximetry 94 06/09/18 16:19 Height/Weight/BMI: Height 1.7 m Weight 92.6 kg Body Mass Index 29.3 - Constitutional Present: no acute distress, well nourished, well developed - Routine HEENT Exam Head: Present: normocephalic Eye: Present: PERRL. Absent: conjunctival icterus, scleral injection - Routine Respiratory Exam Present: decreased breath sounds, wheezes (scattered), crackles (B/L bases) - Routine Cardiovascular Exam Present: S1, S2, irregular rhythm - Routine Abdominal Exam Present: normoactive bowel sounds, non tender, distended (mild) - Routine Extremities Exam Present: edema (1+ BUE and BLE) - Routine Back/Spine/Pelvis Exam Back/Spine: Present: full ROM - Routine Musculoskeletal Exam Musculoskeletal: Present: moving extremities well - Routine Skin Exam Present: intact, dry, warm - Routine Neurological Exam Present: alert, CN II-XII intact, moving all extremities, normal speech - Routine Psychiatric Exam Present: normal affect, normal thought process, cooperative Results - Labs CBC & Chem 7: 06/09/18 04:17 06/09/18 04:17 Microbiology Results: Microbiology 06/04/18 14:30 Peripheral/Iv Start Blood Culture - Preliminary No Growth After 4 Days 06/04/18 14:30 Peripheral/Iv Start Blood Culture - Preliminary No Growth After 4 Days Assessment and Plan (1) Sepsis Current visit: Yes Status: Acute (2) Atrial fibrillation with RVR Current visit: No Status: Chronic (3) Atherosclerotic heart disease of [place] coronary artery without angina pectoris Problem details: Had heart cath in 01/2018 with moderate disease to LAD and RCA, treating medically. Current visit: No Status: Chronic (4) LUIS (acute kidney injury) Current visit: Yes Status: Acute (5) Generalized weakness Current visit: Yes Status: Acute (6) Congestive heart failure Problem details: EF 50% with echo in January 2018 Current visit: Yes Status: Chronic (7) Tobacco abuse Current visit: Yes Status: Chronic Assessment and Plan: Assessment Sepsis - present on admission with WBC, tachy, low BP, high lactate, LUIS Colitis - likely infectious given clinical scenario Heme positive stool/GI bleeding secondary to above Hyponatremia, not POA Atrial fibrillation with RVR V-tach, non-sustained Elevated creatinine CAD HTN Dyslipidemia CHF - chronic diastolic heart failure Chronic respiratory failure - 3L at home Plan Cont metronidazole/Rocephin; WBC trending down; 13.7. O2 demands slightly improved from yest but noted increased peripheral edema along with fluid pos status; currently on home dose Bumex 1 mg BID but Hctz has not been resumed. With hyponatremia, would prefer to use loop diuretic -- will give an extra 1 mg of Bumex tomorrow am for diuresis. Will also give KDur 20 mEq x1 in the am. Continue fluid restriction. Hgb stable at 8.3 -- consider resuming at least ASA; consider restarting Eliquis soon. Resume cardizem 360 mg; pt has been going in/out of a-fib -- may need to verify meds/dosing with cardiology. Per their dc in January,, his meds were: New Apixaban [Eliquis] 5 mg PO BID #60 tab Aspirin *EC* [Ecotrin] 81 mg PO DAILY #30 tab DiltiaZEM CD [Cardizem CD 360 MG] 360 mg PO DAILY #30 cap Rosuvastatin [Crestor] 20 mg PO HS #30 tab DiltiaZEM CD [Cardizem CD 240 MG] 240 mg PO DAILY #30 cap Continue Calcium Carbonate/Vitamin D3 [Calcium 500-Vit D3 200 Tablet] 2 each PO DAILY Ranitidine [Zantac] 1 tab PO DAILY NIFEdipine [Nifedipine ER] 90 mg PO DAILY Loratadine 10 mg PO DAILY PRN PRN Reason: Allergy Symptoms Lisinopril [Prinivil] 40 mg PO DAILY Metformin HCl 1,000 mg PO WS Ferrous Sulfate 325 mg PO DAILY Carvedilol [Coreg] 1 tab PO BIDWM Bumetanide Tab [Bumex 1 mg Tab] 1 mg PO BID Metolazone [Zaroxolyn] 2.5 mg PO DAILY Aspirin 1 tab PO DAILY Cyclobenzaprine [Flexeril] 10 mg PO HS Potassium Chloride [K-Tab ER] 20 meq PO DAILY DVT Prophylaxis: SCD's GI Prophylaxis: Protonix Resuscitation Status: Full Code - Time spent with patient Time with patient PN: 25 minutes - Physician Narrative Physician: Alex Healy MD Narrative: Date: 06/09/18 Time: 2042 Have independently interviewed and examined pt. Chart reviewed. Case discussed with my MICROWAVE ENGINEER. Care plan developed with my supervision; agree with above. Feeling rough this evening-more SOA. Not having cough or congestion, but just harder to get air in. Ate more this evening-ab feeling more full and bloated. Passing some stool. Notes little urine output despite Bumex. Lungs: decreased, no crackles/wheeze. CV: regular AB: distended, BS decreased MSE: awake alert Plan: Did have nursing bladder scan patient - about 300cc in bladder. Encourage voids; did discuss about [place] with patient but would like to avoid if possible. WBC decreasing. Breathing still short and congested. Will recheck CBC in am and if WBC showing decrease, would start steroids -- suspect COPD/ Emysema causing some breathing problems, but also contribution of restrictive disease due to increased ab girth. Hospital Course Summary Disclaimer: The visit summary below is not to be considered part of the above Progress Note. Hospital Course: 06/04/18 Admit patient to ICU due to unstable vital signs just prior to transfer. Repeat basic labs,troponin, and lactate to find trend. Blood cultures pending in [place]. CT Abdomen/pelvis due to sepsis, LUQ pain, elevated lactate. Get occult stool, stool for c diff, and GI PCR panel of stool. Monitor h/h. Start Protonix IV BID in the event of an UGIB and avoid blood thinners for now. Uncertain if patient is taking the Eliquis that was prescribed to him in January, as it's not in his medication bag - would hold acutely anyway. Give IVF and monitor UOP and creatinine in morning. UA was non-infectious in [place]. Check CPK. Continue diltiazem for rate control - give 60mg oral q6hrs as we monitor BP closely. Check TSH Hold nifedipine, lisinopril, Coreg, Bumex, and metolazone for now. Need to reconcile home meds with pharmacy as patient's medication bag doesn't match the records. 06/05/18 WBC trended up overnight, but afebrile. Blood cultures pending Lactate trended down - was 4.[address] [place] [address] Abdomen/pelvis shows colitis - likely infectious given clinical scenario. Occult stool positive - likely due to colitis - will continue BID PPI however for now and hold Eliquis. Restart pending clinical course. On Zosyn and Flagyl - change to Rocephin and Flagyl today. C diff negative. Need to ensure patient's med list is correct tomorrow with [facility] as his list doesn't match what's in his bag of medications. Most notably Eliquis. Continue diltiazem for rate control - change back to once daily dosing in the morning. Restart nifedipine and Coreg today. D/C IVF. Continue to hold Bumex, lisinopril, and metolazone for now - likely need to restart soon. Transfer to floor, up out of bed. 06/06/18 WBC improved to 15.8. Cont metronidazole/Rocephin. Hgb down to 8.2 but stool frequency is decreasing. Cont to hold ASA/Eliquis. Cont PPI. Renal function stable - cr 1.0. Weight is climbing - resume Bumex but will cont to hold metolazone and lisinopril. Resume Coreg. Continue Cardizem and nifedipine Increase activity - consult pt/ot 06/07/18 WBC improved to 15.1. Cont metronidazole/Rocephin. Hgb 8.0 - Cont to hold ASA/Eliquis. Cont PPI. Increased abdominal distention, hypoactive bowel sounds - concerned for ileus. Start bowel regimen. Na down to 135; renal functions with increase, BUN 23 and creatinine 1.4; weight continues to trend up. 86.5 --> 90.7 kg. Requiring 5L of oxygen to maintain saturations. Bumex resumed yesterday; metolazone and lisinopril remain on hold. Yesterday's CXR personally reviewed - stable but clinically concerned about failure. Will repeat CXR in am. 06/08/18 WBC stable at 15. Blood cultures remains negative. Cont metronidazole/Rocephin. Abd Xray revels distension. Asked nursing staff to give Dulcolax sup. Last BM 06/05 Increased oxygen demands up to 6 liters. Noted weight is up a proximal 27 kilograms since admission. Resumed Bumex 1 milligram twice a day for diuresing NA continues to trend down. Noted PO intake yesterday over 2200ML Will add oral fluid restriction of 1800ML/24hrs 06/09/18 Cont metronidazole/Rocephin; WBC trending down; 13.7. O2 demands slightly improved from yest but noted increased peripheral edema along with fluid pos status; currently on home dose Bumex 1 mg BID but Hctz has not been resumed. With hyponatremia, would prefer to use loop diuretic -- will give an extra 1 mg of Bumex tomorrow am for diuresis. Will also give KDur 20 mEq x1 in the am. Continue fluid restriction. Hgb stable at 8.3 -- consider resuming at least ASA; consider restarting Eliquis soon. Resume cardizem 360 mg; pt has been going in/out of a-fib
[2018-06-09] MEDS: NS FLUSH BAG 500ml IV PRN (18:20)
[2018-06-09] MEDS: ROSUVASTATIN 20 MG TABLET PO SCH (20:40)
[2018-06-10] MEDS: MetroNIDAZOLE PB 500 MG/100 ML BAG IV SCH ×3 (02:00→17:55)
[2018-06-10] MEDS: PANTOPRAZOLE 40 MG TABLET PO SCH ×2 (06:20→17:33)
[2018-06-10] MEDS: ALBUTEROL/IPRATROPIUM 2.5mg-0.5mg/3ml NEB AEROSOL SCH ×5 (06:20→20:56)
[2018-06-10] MEDS: CALCIUM 500 + VIT D 200 TABLET PO SCH (08:32)
[2018-06-10] MEDS: BUMETANIDE 1 MG TABLET PO SCH (08:33)
[2018-06-10] MEDS: POLYETHYL GLYCOL 3350 17gm PACKET PO SCH (08:33)
[2018-06-10] MEDS: SENNA + DOCUSATE TABLET PO SCH ×2 (08:33→23:21)
[2018-06-10] MEDS: DiltiaZEM CD 360 MG CAPSULE PO SCH (08:33)
[2018-06-10] MEDS: CARVEDILOL 3.125 MG TABLET PO SCH ×2 (08:33→17:33)
[2018-06-10] MEDS: BUDESONIDE INH.SOLN 0.5mg/2ml NEB AEROSOL SCH ×2 (08:45→20:56)
[2018-06-10] MEDS ORDERED: BUMETANIDE 1 MG TABLET PO ONE (09:00)
[2018-06-10] MEDS ORDERED: METHYLPREDNISOLONE SOD SUCC 125mg/2ml INJECTION IVP ONE (11:15)
[2018-06-10] MEDS: CEFTRIAXONE 1 G in D5W 100 ML IV SCH (12:32)
--- NOTE | 2018-06-10 13:11 | Progress Note ---
- Date 06/10/18 Subjective: Barry is seen today in follow up. He states that he feels that he is improving. He notes to have erythema to right AC fold at site where labs have been drawn. This is not tender on palpation, however forearm is noted to be swollen distally. He feels that his breathing is about the same. Denies having pain. Weight continues to increase. Objective Vital signs: Temperature 97.9 F 06/10/18 07:25 Pulse Rate 86 06/10/18 11:40 Respiratory Rate 16 06/10/18 08:45 Blood Pressure 125/58 06/10/18 07:25 Pulse Oximetry 94 06/10/18 11:40 Height/Weight/BMI: Height 1.7 m Weight 93.6 kg Body Mass Index 29.3 - Constitutional Present: no acute distress, well nourished, well developed - Routine HEENT Exam Eye: Present: EOMI ENT: Present: mucous membranes moist, dentition normal - Routine Respiratory Exam Present: diminished air movement. Absent: wheezes - Routine Cardiovascular Exam Present: RRR, S1, S2. Absent: murmur - Routine Abdominal Exam Present: soft, normoactive bowel sounds, non distended. Absent: tenderness - Routine Extremities Exam Present: edema Comments: Right arm with erythema at AC site with distal swelling - Routine Skin Exam Present: intact, dry, warm - Routine Neurological Exam Present: alert, oriented X3, CN II-XII intact, moving all extremities - Routine Lymphatic Exam Lymphatic: Absent: adenopathy - Routine Psychiatric Exam Present: normal affect, normal thought process, cooperative Results - Labs CBC & Chem 7: 06/10/18 09:12 06/10/18 09:11 Microbiology Results: Microbiology 06/04/18 14:30 Peripheral/Iv Start Blood Culture - Final No Growth After 5 Days 06/04/18 14:30 Peripheral/Iv Start Blood Culture - Final No Growth After 5 Days Assessment and Plan (1) Sepsis Current visit: Yes Status: Acute (2) Atrial fibrillation with RVR Current visit: No Status: Chronic (3) Atherosclerotic heart disease of [place] coronary artery without angina pectoris Problem details: Had heart cath in 01/2018 with moderate disease to LAD and RCA, treating medically. Current visit: No Status: Chronic (4) LUIS (acute kidney injury) Current visit: Yes Status: Acute (5) Generalized weakness Current visit: Yes Status: Acute (6) Congestive heart failure Problem details: EF 50% with echo in January 2018 Current visit: Yes Status: Chronic (7) Tobacco abuse Current visit: Yes Status: Chronic Assessment and Plan: Assessment Sepsis - present on admission with WBC, tachy, low BP, high lactate, LUIS Colitis - likely infectious given clinical scenario Heme positive stool/GI bleeding secondary to above Hyponatremia, not POA Atrial fibrillation with RVR V-tach, non-sustained Elevated creatinine CAD HTN Dyslipidemia CHF - chronic diastolic heart failure Chronic respiratory failure - 3L at home Plan Will obtain venous Doppler of right upper ext to rule out DVT. Monitor erythema to right arm. Cont Rocephin. Discontinued Flagyl. Continues to have edema and weight continues to trend up. Will change Bumex to 1 mg IV- Monitor output. Will resume home Eliquis as recommended by cardiology team. Monitor for bleeding. Hgb stable at 8.3 Monitor BP- Continue on Cardizem 360mg daily. He does not need Nifedipine as long as BP is controlled. Monet Initiated Solu-Medrol to help breathing 125mg x1, then 62.5mg q 6 hours. DVT Prophylaxis: Eliquis Resuscitation Status: Full Code - Time spent with patient Time with patient PN: 25 minutes - Physician Narrative Physician: Alex Healy MD Narrative: Date: 06/10/18 Time: 1821 Have independently interviewed and examined pt. Chart reviewed. Case discussed with my FUEL QUALITY TECH. Care plan developed with my supervision; agree with above. Doing fair. Appetite with some improvements. Not having nausea. Passing some stool. Breathing with slow gains-less SOA. Little cough but congestion. Strength with improvement-easier to move with breathing better. Lungs: decreased bilaterally, occasional crackle and wheeze CV: Regular AB: soft obese with slight distention, BS decreased EXT: +1 edema bilaterally Plan: Initiated Solu-Medrol to help breathing 125mg x1, then 62.5mg q 6 hours. Bumex changed to IV to help motivate fluid. Can stop Metronidazole. Encourage activities. Wean O2 as able. Monitor lab. Hospital Course Summary Disclaimer: The visit summary below is not to be considered part of the above Progress Note. Hospital Course: 01/2018- med list from discharge on cardiology service New Apixaban [Eliquis] 5 mg PO BID #60 tab Aspirin *EC* [Ecotrin] 81 mg PO DAILY #30 tab DiltiaZEM CD [Cardizem CD 360 MG] 360 mg PO DAILY #30 cap Rosuvastatin [Crestor] 20 mg PO HS #30 tab DiltiaZEM CD [Cardizem CD 240 MG] 240 mg PO DAILY #30 cap Continue Calcium Carbonate/Vitamin D3 [Calcium 500-Vit D3 200 Tablet] 2 each PO DAILY Ranitidine [Zantac] 1 tab PO DAILY NIFEdipine [Nifedipine ER] 90 mg PO DAILY Loratadine 10 mg PO DAILY PRN PRN Reason: Allergy Symptoms Lisinopril [Prinivil] 40 mg PO DAILY Metformin HCl 1,000 mg PO WS Ferrous Sulfate 325 mg PO DAILY Carvedilol [Coreg] 1 tab PO BIDWM Bumetanide Tab [Bumex 1 mg Tab] 1 mg PO BID Metolazone [Zaroxolyn] 2.5 mg PO DAILY Aspirin 1 tab PO DAILY Cyclobenzaprine [Flexeril] 10 mg PO HS Potassium Chloride [K-Tab ER] 20 meq PO DAILY 06/04/18 Admit patient to ICU due to unstable vital signs just prior to transfer. Repeat basic labs,troponin, and lactate to find trend. Blood cultures pending in [place]. CT Abdomen/pelvis due to sepsis, LUQ pain, elevated lactate. Get occult stool, stool for c diff, and GI PCR panel of stool. Monitor h/h. Start Protonix IV BID in the event of an UGIB and avoid blood thinners for now. Uncertain if patient is taking the Eliquis that was prescribed to him in January, as it's not in his medication bag - would hold acutely anyway. Give IVF and monitor UOP and creatinine in morning. UA was non-infectious in [place]. Check CPK. Continue diltiazem for rate control - give 60mg oral q6hrs as we monitor BP closely. Check TSH Hold nifedipine, lisinopril, Coreg, Bumex, and metolazone for now. Need to reconcile home meds with pharmacy as patient's medication bag doesn't match the records. 06/05/18 WBC trended up overnight, but afebrile. Blood cultures pending Lactate trended down - was 4.[address] [place] [address] Abdomen/pelvis shows colitis - likely infectious given clinical scenario. Occult stool positive - likely due to colitis - will continue BID PPI however for now and hold Eliquis. Restart pending clinical course. On Zosyn and Flagyl - change to Rocephin and Flagyl today. C diff negative. Need to ensure patient's med list is correct tomorrow with [facility] as his list doesn't match what's in his bag of medications. Most notably Eliquis. Continue diltiazem for rate control - change back to once daily dosing in the morning. Restart nifedipine and Coreg today. D/C IVF. Continue to hold Bumex, lisinopril, and metolazone for now - likely need to restart soon. Transfer to floor, up out of bed. 06/06/18 WBC improved to 15.8. Cont metronidazole/Rocephin. Hgb down to 8.2 but stool frequency is decreasing. Cont to hold ASA/Eliquis. Cont PPI. Renal function stable - cr 1.0. Weight is climbing - resume Bumex but will cont to hold metolazone and lisinopril. Resume Coreg. Continue Cardizem and nifedipine Increase activity - consult pt/ot 06/07/18 WBC improved to 15.1. Cont metronidazole/Rocephin. Hgb 8.0 - Cont to hold ASA/Eliquis. Cont PPI. Increased abdominal distention, hypoactive bowel sounds - concerned for ileus. Start bowel regimen. Na down to 135; renal functions with increase, BUN 23 and creatinine 1.4; weight continues to trend up. 86.5 --> 90.7 kg. Requiring 5L of oxygen to maintain saturations. Bumex resumed yesterday; metolazone and lisinopril remain on hold. Yesterday's CXR personally reviewed - stable but clinically concerned about failure. Will repeat CXR in am. 06/08/18 WBC stable at 15. Blood cultures remains negative. Cont metronidazole/Rocephin. Abd Xray revels distension. Asked nursing staff to give Dulcolax sup. Last BM 06/05. Increased oxygen demands up to 6 liters. Noted weight is up a proximal 27 pounds since admission. Resumed Bumex 1 milligram twice a day for diuresing. NA continues to trend down. Noted PO intake yesterday over 2200ML. Will add oral fluid restriction of 1800ML/24hrs. 06/09/18 Cont metronidazole/Rocephin; WBC trending down; 13.7. O2 demands slightly improved from yest but noted increased peripheral edema along with fluid pos status; currently on home dose Bumex 1 mg BID but Hctz has not been resumed. With hyponatremia, would prefer to use loop diuretic -- will give an extra 1 mg of Bumex tomorrow am for diuresis. Will also give KDur 20 mEq x1 in the am. Continue fluid restriction. Hgb stable at 8.3 -- consider resuming at least ASA; consider restarting Eliquis soon. Resume cardizem 360 mg; pt has been going in/out of a-fib. 06/10/18 Obtain venous Doppler of right upper ext to rule out DVT - Negative. Monitor erythema to right arm. Cont Rocephin. Discontinued Flagyl. Continues to have edema and weight continues to trend up. Will change Bumex to 1 mg IV- Monitor output. Will resume home Eliquis as recommended by cardiology team. Monitor for bleeding. Hgb stable at 8.3 Monitor BP- Continue on Cardizem 360mg daily. He does not need Nifedipine as long as BP is controlled. Initiated Solu-Medrol to help breathing - 125mg x1, then 62.5mg q 6 hours.
[2018-06-10] MEDS: METHYLPREDNISOLONE SOD SUCC 125mg/2ml INJECTION IVP SCH ×2 (14:41→23:22)
--- NOTE | 2018-06-10 15:05 | Ultrasound Report ---
Indication: Right arm swelling, erythema at AC site PROCEDURE: US venous doppler UE RT: Encounter: Initial Comparison: None Technique: Color Doppler duplex and grayscale sonographic imaging of the right upper extremity was performed. FINDINGS: There is no evidence for acute deep venous thrombosis in the right arm. The right internal jugular, subclavian, axillary and paired brachial veins were evaluated; compression and augmentation were applied where possible. In addition, color and pulsed Doppler demonstrate appropriate spontaneous flow, cardiac pulsatility and variation with respiration. IMPRESSION: No evidence of acute DVT in the right upper extremity. .
[2018-06-10] MEDS ORDERED: NS FLUSH BAG 500ml IV PRN (16:10)
[2018-06-10] MEDS: NS FLUSH BAG 500ml IV PRN (17:55)
[2018-06-10] MEDS: SALINE FLUSH 10ml SYRINGE IVF PRN (17:55)
[2018-06-10] MEDS: ROSUVASTATIN 20 MG TABLET PO SCH (23:23)
[2018-06-10] MEDS: APIXABAN 5 MG TABLET PO SCH (23:32)
[2018-06-11] MEDS: MetroNIDAZOLE PB 500 MG/100 ML BAG IV SCH ×3 (02:47→17:48)
[2018-06-11] MEDS: METHYLPREDNISOLONE SOD SUCC 125mg/2ml INJECTION IVP SCH ×3 (03:25→15:42)
[2018-06-11] MEDS: PANTOPRAZOLE 40 MG TABLET PO SCH ×2 (07:04→17:48)
[2018-06-11] MEDS: ALBUTEROL/IPRATROPIUM 2.5mg-0.5mg/3ml NEB AEROSOL SCH ×4 (07:40→19:22)
[2018-06-11] MEDS: BUDESONIDE INH.SOLN 0.5mg/2ml NEB AEROSOL SCH ×2 (07:41→19:22)
[2018-06-11] MEDS ORDERED: DEXTROSE 50% SYRINGE 50ml (1 AMP) IVP PRN (07:43)
[2018-06-11] MEDS ORDERED: GLUCOSE ORAL GEL 40% 37.5gm PO PRN (07:43)
[2018-06-11] MEDS: DiltiaZEM CD 360 MG CAPSULE PO SCH (09:20)
[2018-06-11] MEDS: SALINE FLUSH 10ml SYRINGE IVF PRN ×4 (09:20→17:48)
[2018-06-11] MEDS: SENNA + DOCUSATE TABLET PO SCH (09:20)
[2018-06-11] MEDS: APIXABAN 5 MG TABLET PO SCH ×2 (09:20→22:49)
[2018-06-11] MEDS: POLYETHYL GLYCOL 3350 17gm PACKET PO SCH (09:21)
[2018-06-11] MEDS: CARVEDILOL 3.125 MG TABLET PO SCH ×2 (09:22→17:48)
[2018-06-11] MEDS: CALCIUM 500 + VIT D 200 TABLET PO SCH (09:22)
[2018-06-11] MEDS: INSULIN ASPART 100unit/ml INJECTION SQ PRN ×3 (10:22→22:58)
--- NOTE | 2018-06-11 11:16 | Progress Note ---
- Date 06/11/18 Subjective: Mr House is seen today in follow up. He is resting in bed without any complaints of pain. He denies feeling short of breath or having GI complaints. Remains on 4 liters of oxygen. Appetite remains good and large bowel movement this morning. He continues to have erythema and swelling of the left antecubital however, this is nontender. Objective Vital signs: Temperature 96.3 F L 06/11/18 07:34 Pulse Rate 101 H 06/11/18 08:00 Respiratory Rate 20 06/11/18 07:43 Blood Pressure 149/68 H 06/11/18 07:34 Pulse Oximetry 94 06/11/18 07:43 Height/Weight/BMI: Height 1.7 m Weight 93.6 kg Body Mass Index 29.3 - Constitutional Present: no acute distress, well nourished, well developed - Routine HEENT Exam Eye: Present: EOMI ENT: Present: mucous membranes moist, dentition normal - Routine Respiratory Exam Present: CTA bilaterally, diminished air movement (bases). Absent: wheezes - Routine Cardiovascular Exam Present: RRR, S1, S2. Absent: murmur - Routine Abdominal Exam Present: soft, normoactive bowel sounds, non distended. Absent: tenderness - Routine Extremities Exam Present: edema (right arm, BLE) Comments: Erythema to the right antecubital - Routine Skin Exam Present: intact, dry, warm - Routine Neurological Exam Present: alert, oriented X3, CN II-XII intact - Routine Lymphatic Exam Lymphatic: Absent: adenopathy - Routine Psychiatric Exam Present: normal affect, cooperative Results - Labs CBC & Chem 7: 06/11/18 04:10 06/11/18 04:10 Microbiology Results: Microbiology 06/04/18 14:30 Peripheral/Iv Start Blood Culture - Final No Growth After 5 Days 06/04/18 14:30 Peripheral/Iv Start Blood Culture - Final No Growth After 5 Days Assessment and Plan Assessment and Plan: Assessment Sepsis - present on admission with WBC, tachy, low BP, high lactate, LUIS Colitis - likely infectious given clinical scenario Heme positive stool/GI bleeding secondary to above Hyponatremia, not POA Atrial fibrillation with RVR V-tach, [id number] beat run on 06/04/2018 -no recurrence on telemetry Elevated creatinine CAD HTN Dyslipidemia CHF - chronic diastolic heart failure -EF 50% Chronic respiratory failure - 3L at home Plan Continue to monitor erythema of the right antecubital as well as distal edema. Venous Doppler negative for DVT Into need is on Bumex twice a day Aird weight continues to trend up. Check chest x-ray today. Was started on Solu-Medrol to help with breathing last evening Continues on IV Rocephin daily Monitor BP- Continue on Cardizem 360mg daily. He does not need Nifedipine as long as BP is controlled. Hemoglobin remains stable, monitor for evidence of bleeding. Given resume of home Eliquis 06/11/2018-6:40 PM-I examined the patient independently. I reviewed this chart, the patient history, and the BUSINESS TEST ANALYST's/PA's documented findings as above. We discussed and formulated the assessment and plan as above with the additions below.-Dr. Angelo The patient was seen this evening in his room. He was sitting up in a chair. He states he is feeling better. He has improved energy. He states he has been having loose stools, but they improved when he was not given MiraLAX and Senokot this morning. He continues to have some swelling in his right forearm and hand as well as some erythema in the right antecubital fossa, but he states the erythema and swelling have improved. It is not painful. He states his breathing is slowly improving. Exam he is alert and in no acute distress. Chest reveals crackles in the bases. Cardiovascular reveals an irregularly irregular rhythm. Telemetry reveals atrial fibrillation. Abdomen is soft and nontender with positive bowel sounds. Right upper extremity reveals 2+ pitting edema in the hand and forearm as well as some erythema in the antecubital fossa. Patient states this is improved. He has 1+ pedal and pretibial edema. DATE OF PROCEDURE-echocardiogram February 07, 2018 There is no pericardial effusion. IMPRESSION 1. Wall motion abnormalities as described above suggestive of coronary artery disease with ejection fraction of about 50%. 2. Left atrial dilation. 3. Mitral annulus calcification with mild mitral regurgitation. 4. Mild aortic insufficiency. 5. Mild tricuspid regurgitation with estimated pulmonary artery systolic pressure of 20. Chest x-ray PA and lateral today on my read is clear Impression Sepsis-likely GI source, resolved Right wrist with negative GI panel-improving on Rocephin and Flagyl Heme positive stool/GI bleeding secondary to above-Eliquis restarted yesterday A. fib with RVR 6 beat run of nonsustained V. tach on day of admission, no recurrence Chronic diastolic heart failure and mild systolic heart failure with EF of 50% Anemia Elevated creatinine-improved overall Hypertension-he is currently on Coreg, diltiazem and IV Bumex therapy blood pressure control-he is still off of hydrochlorothiazide, lisinopril, nifedipine , and oral Bumex 1 mg by mouth twice a day. On admission, it was also listed that he was on Zaroxolyn 2.5 mg daily, but this is not on his home med list now Chronic lower extremity edema Weight up 3.7 kg since admission Right upper extremity edema and erythema-improving per patient, venous Doppler was negative for DVT Hyperglycemia is secondary to steroids Chronic Respiratory failure on 3 L of oxygen at home Plan Continue Rocephin and Flagyl. Recheck CBC with differential and basic metabolic profile tomorrow. Consider switch to oral Bumex, may need to add Zaroxolyn as well. Low-sodium diet and 1.8 liter fluid restriction Treatment down to 3 L of oxygen as tolerated. Monitor Accu-Cheks and give sliding scale insulin regarding hyperglycemia from steroids DC Solu-Medrol and start prednisone 30 mg daily tomorrow - Physician Narrative Narrative: Date: 06/11/18 Time: 1054 Hospital Course Summary Disclaimer: The visit summary below is not to be considered part of the above Progress Note. Hospital Course: 01/2018- med list from discharge on cardiology service New Apixaban [Eliquis] 5 mg PO BID #60 tab Aspirin *EC* [Ecotrin] 81 mg PO DAILY #30 tab DiltiaZEM CD [Cardizem CD 360 MG] 360 mg PO DAILY #30 cap Rosuvastatin [Crestor] 20 mg PO HS #30 tab DiltiaZEM CD [Cardizem CD 240 MG] 240 mg PO DAILY #30 cap Continue Calcium Carbonate/Vitamin D3 [Calcium 500-Vit D3 200 Tablet] 2 each PO DAILY Ranitidine [Zantac] 1 tab PO DAILY NIFEdipine [Nifedipine ER] 90 mg PO DAILY Loratadine 10 mg PO DAILY PRN PRN Reason: Allergy Symptoms Lisinopril [Prinivil] 40 mg PO DAILY Metformin HCl 1,000 mg PO WS Ferrous Sulfate 325 mg PO DAILY Carvedilol [Coreg] 1 tab PO BIDWM Bumetanide Tab [Bumex 1 mg Tab] 1 mg PO BID Metolazone [Zaroxolyn] 2.5 mg PO DAILY Aspirin 1 tab PO DAILY Cyclobenzaprine [Flexeril] 10 mg PO HS Potassium Chloride [K-Tab ER] 20 meq PO DAILY 06/04/18 Admit patient to ICU due to unstable vital signs just prior to transfer. Repeat basic labs,troponin, and lactate to find trend. Blood cultures pending in [place]. CT Abdomen/pelvis due to sepsis, LUQ pain, elevated lactate. Get occult stool, stool for c diff, and GI PCR panel of stool. Monitor h/h. Start Protonix IV BID in the event of an UGIB and avoid blood thinners for now. Uncertain if patient is taking the Eliquis that was prescribed to him in January, as it's not in his medication bag - would hold acutely anyway. Give IVF and monitor UOP and creatinine in morning. UA was non-infectious in [place]. Check CPK. Continue diltiazem for rate control - give 60mg oral q6hrs as we monitor BP closely. Check TSH Hold nifedipine, lisinopril, Coreg, Bumex, and metolazone for now. Need to reconcile home meds with pharmacy as patient's medication bag doesn't match the records. 06/05/18 WBC trended up overnight, but afebrile. Blood cultures pending Lactate trended down - was 4.[address] [place] [address] Abdomen/pelvis shows colitis - likely infectious given clinical scenario. Occult stool positive - likely due to colitis - will continue BID PPI however for now and hold Eliquis. Restart pending clinical course. On Zosyn and Flagyl - change to Rocephin and Flagyl today. C diff negative. Need to ensure patient's med list is correct tomorrow with [facility] as his list doesn't match what's in his bag of medications. Most notably Eliquis. Continue diltiazem for rate control - change back to once daily dosing in the morning. Restart nifedipine and Coreg today. D/C IVF. Continue to hold Bumex, lisinopril, and metolazone for now - likely need to restart soon. Transfer to floor, up out of bed. 06/06/18 WBC improved to 15.8. Cont metronidazole/Rocephin. Hgb down to 8.2 but stool frequency is decreasing. Cont to hold ASA/Eliquis. Cont PPI. Renal function stable - cr 1.0. Weight is climbing - resume Bumex but will cont to hold metolazone and lisinopril. Resume Coreg. Continue Cardizem and nifedipine Increase activity - consult pt/ot 06/07/18 WBC improved to 15.1. Cont metronidazole/Rocephin. Hgb 8.0 - Cont to hold ASA/Eliquis. Cont PPI. Increased abdominal distention, hypoactive bowel sounds - concerned for ileus. Start bowel regimen. Na down to 135; renal functions with increase, BUN 23 and creatinine 1.4; weight continues to trend up. 86.5 --> 90.7 kg. Requiring 5L of oxygen to maintain saturations. Bumex resumed yesterday; metolazone and lisinopril remain on hold. Yesterday's CXR personally reviewed - stable but clinically concerned about failure. Will repeat CXR in am. 06/08/18 WBC stable at 15. Blood cultures remains negative. Cont metronidazole/Rocephin. Abd Xray revels distension. Asked nursing staff to give Dulcolax sup. Last BM 06/05. Increased oxygen demands up to 6 liters. Noted weight is up a proximal 27 pounds since admission. Resumed Bumex 1 milligram twice a day for diuresing. NA continues to trend down. Noted PO intake yesterday over 2200ML. Will add oral fluid restriction of 1800ML/24hrs. 06/09/18 Cont metronidazole/Rocephin; WBC trending down; 13.7. O2 demands slightly improved from yest but noted increased peripheral edema along with fluid pos status; currently on home dose Bumex 1 mg BID but Hctz has not been resumed. With hyponatremia, would prefer to use loop diuretic -- will give an extra 1 mg of Bumex tomorrow am for diuresis. Will also give KDur 20 mEq x1 in the am. Continue fluid restriction. Hgb stable at 8.3 -- consider resuming at least ASA; consider restarting Eliquis soon. Resume cardizem 360 mg; pt has been going in/out of a-fib. 7/13/18 Obtain venous Doppler of right upper ext to rule out DVT - Negative. Monitor erythema to right arm. Cont Rocephin. Discontinued Flagyl. Continues to have edema and weight continues to trend up. Will change Bumex to 1 mg IV- Monitor output. Will resume home Eliquis as recommended by cardiology team. Monitor for bleeding. Hgb stable at 8.3 Monitor BP- Continue on Cardizem 360mg daily. He does not need Nifedipine as long as BP is controlled. Initiated Solu-Medrol to help breathing - 125mg x1, then 62.5mg q 6 hours. 06/11/18 Continue to monitor erythema of the right antecubital as well as distal edema. Venous Doppler negative for DVT Into need is on Bumex twice a day Aird weight continues to trend up. Check chest x-ray today. Was started on Solu-Medrol to help with breathing last evening Continues on IV Rocephin daily Monitor BP- Continue on Cardizem 360mg daily. He does not need Nifedipine as long as BP is controlled. Hemoglobin remains stable, monitor for evidence of bleeding. Given resume of home Eliquis
[2018-06-11] MEDS: CEFTRIAXONE 1 G in D5W 100 ML IV SCH (12:45)
[2018-06-11] MEDS: ROSUVASTATIN 20 MG TABLET PO SCH (22:49)
[2018-06-12] MEDS: MetroNIDAZOLE PB 500 MG/100 ML BAG IV SCH ×2 (03:54→12:05)
[2018-06-12] MEDS: PANTOPRAZOLE 40 MG TABLET PO SCH ×2 (06:36→18:05)
[2018-06-12] MEDS: INSULIN ASPART 100unit/ml INJECTION SQ PRN ×3 (06:49→21:12)
[2018-06-12] MEDS: BUDESONIDE INH.SOLN 0.5mg/2ml NEB AEROSOL SCH ×2 (07:24→20:46)
[2018-06-12] MEDS: ALBUTEROL/IPRATROPIUM 2.5mg-0.5mg/3ml NEB AEROSOL SCH ×4 (07:24→20:45)
[2018-06-12] MEDS: DiltiaZEM CD 360 MG CAPSULE PO SCH (08:29)
[2018-06-12] MEDS: CARVEDILOL 3.125 MG TABLET PO SCH ×2 (08:29→18:05)
[2018-06-12] MEDS: PredniSONE 10 MG TABLET PO SCH (08:30)
[2018-06-12] MEDS: APIXABAN 5 MG TABLET PO SCH ×2 (08:30→21:10)
[2018-06-12] MEDS: CALCIUM 500 + VIT D 200 TABLET PO SCH (08:30)
--- NOTE | 2018-06-12 10:29 | XRay Report ---
INDICATION: hypoxia, worsening PROCEDURE: CHEST 2-VIEWS UPRIGHT (PA & LAT) Encounter: Initial COMPARISON: June 08, 2018 FINDINGS: Persistent airspace disease in the right lower lobe with increasing small effusions. Upper lung stroud are clear. No pneumothorax. Heart size and mediastinal contours are stable. Pulmonary vascularity is unchanged. Impression: Increasing pleural fluid. .
[2018-06-12] MEDS: CEFTRIAXONE 1 G in D5W 100 ML IV SCH (14:39)
--- NOTE | 2018-06-12 15:59 | Progress Note ---
- Date 06/12/18 Subjective: Barry has no complaints whatsoever. He states his breathing has been good. He denies any abdominal pain or bloating. He has been eating and drinking well. He denies seeing any blood in his stools, but hasn't really been paying attention. He thinks the swelling in his arm is improving. He denies feeling dizzy. He has been sleeping well at night. His biggest concern is when he will be able to go home. Objective Vital signs: Temperature 97.1 F 06/11/18 23:00 Pulse Rate 70 06/12/18 00:00 Respiratory Rate 16 06/12/18 11:25 Blood Pressure 143/68 H 06/11/18 23:00 Pulse Oximetry 92 06/12/18 11:25 Height/Weight/BMI: Height 1.7 m Weight 90.6 kg Body Mass Index 29.3 - Constitutional Present: no acute distress, well nourished, well developed - Routine HEENT Exam Head: Present: normocephalic Eye: Present: PERRL. Absent: conjunctival icterus, scleral injection - Routine Respiratory Exam Present: decreased breath sounds (coarse breath sounds throughout and decreased in bases) - Routine Cardiovascular Exam Present: irregularly irregular - Routine Abdominal Exam Present: normoactive bowel sounds, tenderness, distended (mild) - Routine Extremities Exam Present: edema (edema to right arm and bilateral legs, 1+) - Routine Skin Exam Present: intact, dry, warm - Routine Neurological Exam Present: alert, oriented X3, moving all extremities, normal speech - Routine Psychiatric Exam Present: normal affect, normal thought process, cooperative Results - Labs CBC & Chem 7: 06/12/18 04:40 06/12/18 04:40 Microbiology Results: Microbiology 06/04/18 14:30 Peripheral/Iv Start Blood Culture - Final No Growth After 5 Days 06/04/18 14:30 Peripheral/Iv Start Blood Culture - Final No Growth After 5 Days Assessment and Plan Assessment and Plan: Assessment Sepsis - present on admission with WBC, tachy, low BP, high lactate, LUIS - likely GI source, resolved Colitis - likely infectious given clinical scenario Heme positive stool/GI bleeding secondary to above Hyponatremia, not POA Atrial fibrillation with RVR Thrombocytosis, not POA V-tach, [id number]-3 beat run on 06/04/2018 -no recurrence on telemetry Elevated creatinine, improved CAD with an EF of 50%, mild mitral regurgitation, mild aortic insufficiency and mild tricuspid regurgitation Hypertension-he is currently on Coreg, diltiazem and IV Bumex therapy blood pressure control-he is still off of hydrochlorothiazide, lisinopril, nifedipine , and oral Bumex 1 mg by mouth twice a day. On admission, it was also listed that he was on Zaroxolyn 2.5 mg daily, but this is not on his home med list now Dyslipidemia CHF - chronic diastolic heart failure -EF 50% Chronic respiratory failure - 3L at home Plan White count has increased to 19,000, however, the patient remains on prednisone 30 mg daily. Blood cultures are negative after 5 days. Continue on Rocephin, day #9. DC Metronidazole. Hemoglobin has drifted down to 7.7, but the patient has been asymptomatic and he denies any hematochezia. Iron studies are pending as is Vitamin B12. He continues on Eliquis for A. fib. Platelets are increased at 425, monitor for now. Sodium is low but stable at 130. Renal function is stable. Weight has gone down by 3 kg despite having a fluid positive balance. He remains on 4 L of oxygen. Will discuss diuretic management with Dr. Angelo. Consider reviewing with Dr. Bush, professional nursing assistant for Dr. Grider, prior to DC. 06/12/2018-6:30 PM-I examined the patient independently. I reviewed this chart, the patient history, and the SHAKE OUT WORKER's/PA's documented findings as above. We discussed and formulated the assessment and plan as above with the additions below.-Dr. Angelo Patient was seen this evening in his room. He states his breathing seems better. His appetite is improving. He continues to have lower extremity edema and edema in the right upper extremity. He has no pain in his right arm. He continues to have some mild erythema in the antecubital fossa but it has not worsened. Venous Doppler was negative for DVT. On exam he is alert and oriented 3. Chest reveals some mild crackles in the bases. Cardiovascular reveals an irregularly irregular rhythm. He does have history of A. fib. Abdomen is soft and nontender. He has 2+ lower extremity edema. He has 2+ right upper extremity edema with some mild erythema in the antecubital fossa. Impression and plan Continue Bumex for diuresis. Discussed tomorrow with cardiology regarding CHF. It's uncertain if he has been on Zaroxolyn recently. The patient does not know the names of his medications. He states he feels ready to go home. He is currently on 4 L of oxygen, at home he is on 3 L continuously. Hemoglobin was down slightly today. Will recheck tomorrow. Check iron studies and B-12. DVT Prophylaxis: Eliquis GI Prophylaxis: Protonix Resuscitation Status: Full Code - Physician Narrative Narrative: Date: 06/12/18 Time: 1549 Hospital Course Summary Disclaimer: The visit summary below is not to be considered part of the above Progress Note. Hospital Course: 01/2018- med list from discharge on cardiology service New Apixaban [Eliquis] 5 mg PO BID #60 tab Aspirin *EC* [Ecotrin] 81 mg PO DAILY #30 tab DiltiaZEM CD [Cardizem CD 360 MG] 360 mg PO DAILY #30 cap Rosuvastatin [Crestor] 20 mg PO HS #30 tab DiltiaZEM CD [Cardizem CD 240 MG] 240 mg PO DAILY #30 cap Continue Calcium Carbonate/Vitamin D3 [Calcium 500-Vit D3 200 Tablet] 2 each PO DAILY Ranitidine [Zantac] 1 tab PO DAILY NIFEdipine [Nifedipine ER] 90 mg PO DAILY Loratadine 10 mg PO DAILY PRN PRN Reason: Allergy Symptoms Lisinopril [Prinivil] 40 mg PO DAILY Metformin HCl 1,000 mg PO WS Ferrous Sulfate 325 mg PO DAILY Carvedilol [Coreg] 1 tab PO BIDWM Bumetanide Tab [Bumex 1 mg Tab] 1 mg PO BID Metolazone [Zaroxolyn] 2.5 mg PO DAILY Aspirin 1 tab PO DAILY Cyclobenzaprine [Flexeril] 10 mg PO HS Potassium Chloride [K-Tab ER] 20 meq PO DAILY 06/04/18 Admit patient to ICU due to unstable vital signs just prior to transfer. Repeat basic labs,troponin, and lactate to find trend. Blood cultures pending in [place]. CT Abdomen/pelvis due to sepsis, LUQ pain, elevated lactate. Get occult stool, stool for c diff, and GI PCR panel of stool. Monitor h/h. Start Protonix IV BID in the event of an UGIB and avoid blood thinners for now. Uncertain if patient is taking the Eliquis that was prescribed to him in January, as it's not in his medication bag - would hold acutely anyway. Give IVF and monitor UOP and creatinine in morning. UA was non-infectious in [place]. Check CPK. Continue diltiazem for rate control - give 60mg oral q6hrs as we monitor BP closely. Check TSH Hold nifedipine, lisinopril, Coreg, Bumex, and metolazone for now. Need to reconcile home meds with pharmacy as patient's medication bag doesn't match the records. 06/05/18 WBC trended up overnight, but afebrile. Blood cultures pending Lactate trended down - was 4.[address] [place] [address] Abdomen/pelvis shows colitis - likely infectious given clinical scenario. Occult stool positive - likely due to colitis - will continue BID PPI however for now and hold Eliquis. Restart pending clinical course. On Zosyn and Flagyl - change to Rocephin and Flagyl today. C diff negative. Need to ensure patient's med list is correct tomorrow with [facility] as his list doesn't match what's in his bag of medications. Most notably Eliquis. Continue diltiazem for rate control - change back to once daily dosing in the morning. Restart nifedipine and Coreg today. D/C IVF. Continue to hold Bumex, lisinopril, and metolazone for now - likely need to restart soon. Transfer to floor, up out of bed. 06/06/18 WBC improved to 15.8. Cont metronidazole/Rocephin. Hgb down to 8.2 but stool frequency is decreasing. Cont to hold ASA/Eliquis. Cont PPI. Renal function stable - cr 1.0. Weight is climbing - resume Bumex but will cont to hold metolazone and lisinopril. Resume Coreg. Continue Cardizem and nifedipine Increase activity - consult pt/ot 06/07/18 WBC improved to 15.1. Cont metronidazole/Rocephin. Hgb 8.0 - Cont to hold ASA/Eliquis. Cont PPI. Increased abdominal distention, hypoactive bowel sounds - concerned for ileus. Start bowel regimen. Na down to 135; renal functions with increase, BUN 23 and creatinine 1.4; weight continues to trend up. 86.5 --> 90.7 kg. Requiring 5L of oxygen to maintain saturations. Bumex resumed yesterday; metolazone and lisinopril remain on hold. Yesterday's CXR personally reviewed - stable but clinically concerned about failure. Will repeat CXR in am. 06/08/18 WBC stable at 15. Blood cultures remains negative. Cont metronidazole/Rocephin. Abd Xray revels distension. Asked nursing staff to give Dulcolax sup. Last BM 06/05. Increased oxygen demands up to 6 liters. Noted weight is up a proximal 27 pounds since admission. Resumed Bumex 1 milligram twice a day for diuresing. NA continues to trend down. Noted PO intake yesterday over 2200ML. Will add oral fluid restriction of 1800ML/24hrs. 06/09/18 Cont metronidazole/Rocephin; WBC trending down; 13.7. O2 demands slightly improved from yest but noted increased peripheral edema along with fluid pos status; currently on home dose Bumex 1 mg BID but Hctz has not been resumed. With hyponatremia, would prefer to use loop diuretic -- will give an extra 1 mg of Bumex tomorrow am for diuresis. Will also give KDur 20 mEq x1 in the am. Continue fluid restriction. Hgb stable at 8.3 -- consider resuming at least ASA; consider restarting Eliquis soon. Resume cardizem 360 mg; pt has been going in/out of a-fib. 06/10/18 Obtain venous Doppler of right upper ext to rule out DVT - Negative. Monitor erythema to right arm. Cont Rocephin. Discontinued Flagyl. Continues to have edema and weight continues to trend up. Will change Bumex to 1 mg IV- Monitor output. Will resume home Eliquis as recommended by cardiology team. Monitor for bleeding. Hgb stable at 8.3 Monitor BP- Continue on Cardizem 360mg daily. He does not need Nifedipine as long as BP is controlled. Initiated Solu-Medrol to help breathing - 125mg x1, then 62.5mg q 6 hours. 06/11/18 Continue to monitor erythema of the right antecubital as well as distal edema. Venous Doppler negative for DVT Into need is on Bumex twice a day Aird weight continues to trend up. Check chest x-ray today. Was started on Solu-Medrol to help with breathing last evening Continues on IV Rocephin daily Monitor BP- Continue on Cardizem 360mg daily. He does not need Nifedipine as long as BP is controlled. Hemoglobin remains stable, monitor for evidence of bleeding. Given resume of home Eliquis 06/12/18 White count has increased to 19,000, however, the patient remains on prednisone 30 mg daily. Blood cultures are negative after 5 days. Continue on Rocephin, day #9. DC Metronidazole. Hemoglobin has drifted down to 7.7, but the patient has been asymptomatic and he denies any hematochezia. Iron studies are pending as is Vitamin B12. He continues on Eliquis for A. fib. Platelets are increased at 425, monitor for now. Sodium is low but stable at 130. Renal function is stable. Weight has gone down by 3 kg despite having a fluid positive balance. He remains on 4 L of oxygen. Will discuss diuretic management with Dr. Angelo. Consider reviewing with Dr. Bush, professional nursing assistant for Dr. Grider, prior to DC.
[2018-06-12] MEDS: ROSUVASTATIN 20 MG TABLET PO SCH (21:10)
[2018-06-13] MEDS: PANTOPRAZOLE 40 MG TABLET PO SCH (06:05)
[2018-06-13] MEDS: INSULIN ASPART 100unit/ml INJECTION SQ PRN ×4 (06:05→20:58)
[2018-06-13] MEDS: BUDESONIDE INH.SOLN 0.5mg/2ml NEB AEROSOL SCH ×2 (06:55→20:14)
[2018-06-13] MEDS: ALBUTEROL/IPRATROPIUM 2.5mg-0.5mg/3ml NEB AEROSOL SCH ×4 (06:55→20:14)
[2018-06-13] MEDS: DiltiaZEM CD 360 MG CAPSULE PO SCH (10:07)
[2018-06-13] MEDS: PredniSONE 10 MG TABLET PO SCH (10:07)
[2018-06-13] MEDS: CARVEDILOL 3.125 MG TABLET PO SCH ×2 (10:08→18:38)
[2018-06-13] MEDS: CALCIUM 500 + VIT D 200 TABLET PO SCH (10:08)
[2018-06-13] MEDS ORDERED: IRON - PHARMACY CONSULT MC ONE (10:53)
--- NOTE | 2018-06-13 11:09 | Progress Note ---
- Date 06/13/18 Subjective: The patient was seen this morning in his room. He continues to have diarrhea but states it is not black or bloody. He denies any abdominal pain. He states he had a colonoscopy about 2 years ago and thinks it was normal. He does not recall having an EGD in the past. He states he feels short of breath at times. He has been on oxygen since at least January of this year and he states he is on it for his heart. He is a smoker, but denies diagnosis of COPD. Right arm swelling is improving. Objective Vital signs: Temperature 96 F L 06/13/18 07:42 Pulse Rate 76 06/13/18 07:42 Respiratory Rate 20 06/13/18 07:42 Blood Pressure 159/62 H 06/13/18 07:42 Pulse Oximetry 96 06/13/18 07:42 Height/Weight/BMI: Height 1.7 m Weight 91.7 kg Body Mass Index 29.3 Comments: Afebrile, heart rate 76, blood pressure 159/62, O2 sat 96% on 4 L GEN-alert, oriented, no acute distress HEENT-sclera anicteric, oropharynx is moist NECK-supple CV-irregularly irregular. A. fib on telemetry CHEST-decreased breath sounds in the bases ABD-soft, nontender with positive bowel sounds -no Tejeda EXT-bilateral lower extremity edema, right arm edema is improving NEURO-no focal deficits SKIN-warm and dry, erythema to right antecubital fossa is stable Results - Labs CBC & Chem 7: 06/13/18 04:01 06/13/18 04:01 Labs: Hemoglobin continues to slowly drift down. Neutrophils are 88%. Bands are 0. Calcium 7.8. B 12 is normal at 459. Iron is 16 which is low, percent sat is 4 which is low. TIBC is normal at 374 Microbiology Results: Microbiology 06/04/18 14:30 Peripheral/Iv Start Blood Culture - Final No Growth After 5 Days 06/04/18 14:30 Peripheral/Iv Start Blood Culture - Final No Growth After 5 Days Assessment and Plan (1) Atrial fibrillation with RVR Current visit: No Status: Chronic (2) Atherosclerotic heart disease of [place] coronary artery without angina pectoris Problem details: Had heart cath in 01/2018 with moderate disease to LAD and RCA, treating medically. Current visit: No Status: Chronic (3) Sepsis Current visit: Yes Status: Acute (4) LUIS (acute kidney injury) Current visit: Yes Status: Acute (5) Generalized weakness Current visit: Yes Status: Acute (6) Congestive heart failure Problem details: EF 50% with echo in January 2018 Current visit: Yes Status: Chronic (7) Tobacco abuse Current visit: Yes Status: Chronic Assessment and Plan: Assessment Sepsis - present on admission with WBC, tachy, low BP, high lactate, LUIS - likely GI source, resolved Colitis seen on CT- likely infectious given clinical scenario Heme positive stool/GI bleeding secondary to above Iron Deficiency anemia -hemoglobin continues to trend down -globin 10.3 on admission and 7.2 today Hyponatremia, not POA Atrial fibrillation with RVR Thrombocytosis, not POA V-tach, [id number] beat run on 06/04/2018 -no recurrence on telemetry Elevated creatinine-resolved CAD with an EF of 50%, mild mitral regurgitation, mild aortic insufficiency and mild tricuspid regurgitation Hypertension-he is currently on Coreg, diltiazem and IV Bumex therapy blood pressure control-he is still off of hydrochlorothiazide, lisinopril, nifedipine , and oral Bumex 1 mg by mouth twice a day. On admission, it was also listed that he was on Zaroxolyn 2.5 mg daily, but this is not on his home med list now Dyslipidemia CHF - chronic diastolic heart failure -EF 50% Chronic respiratory failure - 3L at home Plan The patient continues to have a slow trend down in his hemoglobin. It is 7.2 today. It was 10.3 on admission. On admission he had colitis with bloody stools and a close was discontinued. Bloody stools have resolved. Eliquis was restarted on the but will be discontinued today due to continued drop in hemoglobin. Will obtain serial hemoglobins now. Give Protonix IV. Start clear liquids. Dr. Gibson was consulted for possible EGD/colonoscopy. This likely will not be done for a couple of days until Eliquis can get out of his system. 2 units of blood will be typed and crossed and on hold. The patient states that he is reluctant to have a blood transfusion but if he was critical and not able to give consent, he is okay with us giving him blood. Metronidazole was discontinued yesterday. We'll discontinue Rocephin today. The patient continues to have diarrhea. Will repeat GI panel. We'll consult 3 times a day regarding nonsustained V. tach, help with CHF, and help determine if he is stable for EGD and colonoscopy if needed. I question if the patient has COPD. Decrease prednisone to 20 mg daily Discussed with patient. - Physician Narrative Narrative: Date: 06/13/18 Time: 1105 Hospital Course Summary Disclaimer: The visit summary below is not to be considered part of the above Progress Note. Hospital Course: 01/2018- med list from discharge on cardiology service New Apixaban [Eliquis] 5 mg PO BID #60 tab Aspirin *EC* [Ecotrin] 81 mg PO DAILY #30 tab DiltiaZEM CD [Cardizem CD 360 MG] 360 mg PO DAILY #30 cap Rosuvastatin [Crestor] 20 mg PO HS #30 tab DiltiaZEM CD [Cardizem CD 240 MG] 240 mg PO DAILY #30 cap Continue Calcium Carbonate/Vitamin D3 [Calcium 500-Vit D3 200 Tablet] 2 each PO DAILY Ranitidine [Zantac] 1 tab PO DAILY NIFEdipine [Nifedipine ER] 90 mg PO DAILY Loratadine 10 mg PO DAILY PRN PRN Reason: Allergy Symptoms Lisinopril [Prinivil] 40 mg PO DAILY Metformin HCl 1,000 mg PO WS Ferrous Sulfate 325 mg PO DAILY Carvedilol [Coreg] 1 tab PO BIDWM Bumetanide Tab [Bumex 1 mg Tab] 1 mg PO BID Metolazone [Zaroxolyn] 2.5 mg PO DAILY Aspirin 1 tab PO DAILY Cyclobenzaprine [Flexeril] 10 mg PO HS Potassium Chloride [K-Tab ER] 20 meq PO DAILY 06/04/18 Admit patient to ICU due to unstable vital signs just prior to transfer. Repeat basic labs,troponin, and lactate to find trend. Blood cultures pending in [facility] [place] Abdomen/pelvis due to sepsis, LUQ pain, elevated lactate. Get occult stool, stool for c diff, and GI PCR panel of stool. Monitor h/h. Start Protonix IV BID in the event of an UGIB and avoid blood thinners for now. Uncertain if patient is taking the Eliquis that was prescribed to him in January, as it's not in his medication bag - would hold acutely anyway. Give IVF and monitor UOP and creatinine in morning. UA was non-infectious in [facility]. Check CPK. Continue diltiazem for rate control - give 60mg oral q6hrs as we monitor BP closely. Check TSH Hold nifedipine, lisinopril, Coreg, Bumex, and metolazone for now. Need to reconcile home meds with pharmacy as patient's medication bag doesn't match the records. 06/05/18 WBC trended up overnight, but afebrile. Blood cultures pending Lactate trended down - was 4.[address] [facility] [address] Abdomen/pelvis shows colitis - likely infectious given clinical scenario. Occult stool positive - likely due to colitis - will continue BID PPI however for now and hold Eliquis. Restart pending clinical course. On Zosyn and Flagyl - change to Rocephin and Flagyl today. C diff negative. Need to ensure patient's med list is correct tomorrow with [facility] as his list doesn't match what's in his bag of medications. Most notably Eliquis. Continue diltiazem for rate control - change back to once daily dosing in the morning. Restart nifedipine and Coreg today. D/C IVF. Continue to hold Bumex, lisinopril, and metolazone for now - likely need to restart soon. Transfer to floor, up out of bed. 06/06/18 WBC improved to 15.8. Cont metronidazole/Rocephin. Hgb down to 8.2 but stool frequency is decreasing. Cont to hold ASA/Eliquis. Cont PPI. Renal function stable - cr 1.0. Weight is climbing - resume Bumex but will cont to hold metolazone and lisinopril. Resume Coreg. Continue Cardizem and nifedipine Increase activity - consult pt/ot 06/07/18 WBC improved to 15.1. Cont metronidazole/Rocephin. Hgb 8.0 - Cont to hold ASA/Eliquis. Cont PPI. Increased abdominal distention, hypoactive bowel sounds - concerned for ileus. Start bowel regimen. Na down to 135; renal functions with increase, BUN 23 and creatinine 1.4; weight continues to trend up. 86.5 --> 90.7 kg. Requiring 5L of oxygen to maintain saturations. Bumex resumed yesterday; metolazone and lisinopril remain on hold. Yesterday's CXR personally reviewed - stable but clinically concerned about failure. Will repeat CXR in am. 06/08/18 WBC stable at 15. Blood cultures remains negative. Cont metronidazole/Rocephin. Abd Xray revels distension. Asked nursing staff to give Dulcolax sup. Last BM 06/05. Increased oxygen demands up to 6 liters. Noted weight is up a proximal 27 pounds since admission. Resumed Bumex 1 milligram twice a day for diuresing. NA continues to trend down. Noted PO intake yesterday over 2200ML. Will add oral fluid restriction of 1800ML/24hrs. 06/09/18 Cont metronidazole/Rocephin; WBC trending down; 13.7. O2 demands slightly improved from yest but noted increased peripheral edema along with fluid pos status; currently on home dose Bumex 1 mg BID but Hctz has not been resumed. With hyponatremia, would prefer to use loop diuretic -- will give an extra 1 mg of Bumex tomorrow am for diuresis. Will also give KDur 20 mEq x1 in the am. Continue fluid restriction. Hgb stable at 8.3 -- consider resuming at least ASA; consider restarting Eliquis soon. Resume cardizem 360 mg; pt has been going in/out of a-fib. 06/10/18 Obtain venous Doppler of right upper ext to rule out DVT - Negative. Monitor erythema to right arm. Cont Rocephin. Discontinued Flagyl. Continues to have edema and weight continues to trend up. Will change Bumex to 1 mg IV- Monitor output. Will resume home Eliquis as recommended by cardiology team. Monitor for bleeding. Hgb stable at 8.3 Monitor BP- Continue on Cardizem 360mg daily. He does not need Nifedipine as long as BP is controlled. Initiated Solu-Medrol to help breathing - 125mg x1, then 62.5mg q 6 hours. 06/11/18 Continue to monitor erythema of the right antecubital as well as distal edema. Venous Doppler negative for DVT Into need is on Bumex twice a day Aird weight continues to trend up. Check chest x-ray today. Was started on Solu-Medrol to help with breathing last evening Continues on IV Rocephin daily Monitor BP- Continue on Cardizem 360mg daily. He does not need Nifedipine as long as BP is controlled. Hemoglobin remains stable, monitor for evidence of bleeding. Given resume of home Eliquis 06/12/18 White count has increased to 19,000, however, the patient remains on prednisone 30 mg daily. Blood cultures are negative after 5 days. Continue on Rocephin, day #9. DC Metronidazole. Hemoglobin has drifted down to 7.7, but the patient has been asymptomatic and he denies any hematochezia. Iron studies are pending as is Vitamin B12. He continues on Eliquis for A. fib. Platelets are increased at 425, monitor for now. Sodium is low but stable at 130. Renal function is stable. Weight has gone down by 3 kg despite having a fluid positive balance. He remains on 4 L of oxygen. Will discuss diuretic management with Dr. Angelo. Consider reviewing with Dr. Bush, pallet stone inserter for Dr. Grider, prior to DC.
[2018-06-13] MEDS ORDERED: FERUMOXYTOL 510 MG in NS 100 ML IV ONE (13:15)
--- NOTE | 2018-06-13 14:25 | Cardiology Consult Note ---
History of Present Illness Consult date: 06/13/18 Requesting physician: Caroline Angelo Chief complaint: weakness History of present illness: Barry is a 73 year old male who is known to Dr. rGider's practice with history of PAF on Eliquis, HTN, CAD, CVA, HLD and COPD who was admitted in the care of the hospitalist following EMS finding him lying on his kitchen floor with blood pressure in the 80's. In the ED his blood pressure improved significantly after 1 liter of normal saline, however his heart rate was found to be in the 140-150 range in a-fib. He was given diltiazem IV and it improved to the 90's. Chest xray was unremarkable. Positive hemoccult. He was transferred to [facility] for further evaluation. Dr. Bush is consulted for evaluation of preprocedural cardiac clearance should he need endoscopy and we appreciate the consult. Review of Systems - Constitutional Constitutional: Present: fatigue, weakness. Absent: chills, fever(s) - EENMT Eyes: Absent: change in vision Balance: Absent: vertigo Mouth/Throat: Absent: sore throat - Cardiovascular Cardiovascular: Present: palpitations, dyspnea on exertion, edema. Absent: chest pain, syncope, orthopnea, heart murmur Rhythm: Present: abnormal rhythm Vascular: Present: pedal edema - Respiratory Respiratory: Present: dyspnea on exertion. Absent: cough - Gastrointestinal Gastrointestinal: Present: diarrhea. Absent: nausea, vomiting - Genitourinary Genitourinary: Absent: dysuria - Integumentary/Breasts Integumentary: Absent: rash - Neurological Neurological: Absent: dizziness - Endocrine Endocrine: Present: palpitations [facility] Patient Stated Medical History Cardiac Arrhythmia Yes: AFIB Congestive Heart Failure Yes Hypertension Yes Diabetes Mellitus Type 2 Yes Medical History Updates: Hypertension. CHF. iron deficiency anemia. Diabetes type II. CVA. tobacco abuse. atrial fibrillation. Hyperlipidemia Surgical History: Lumbar back X2 Family History: Father - DM - Social History Smoking status: Current every day smoker Packs per day: 0.5 Substance use type: does not use Alcohol intake frequency: does not drink Current occupational exposures/hazards: No Does patient use chewing tobacco?: No Current residence: Apartment/Private Home Medications Home Medications Medication Instructions Recorded Confirmed Type Bumetanide Tab [Bumex 1 mg Tab] 1 mg PO BID 02/07/18 06/04/18 History Calcium Carbonate/Vitamin D3 2 each PO DAILY 02/07/18 06/04/18 History [Calcium 500-Vit D3 200 Tablet] Carvedilol [Coreg] 1 tab PO BIDWM 02/07/18 06/04/18 History Cyclobenzaprine [Flexeril] 10 mg PO HS 02/07/18 06/04/18 History Lisinopril [Prinivil] 40 mg PO DAILY 02/07/18 06/04/18 History Loratadine 10 mg PO DAILY PRN 02/07/18 06/04/18 History NIFEdipine [Nifedipine ER] 90 mg PO DAILY 02/07/18 06/04/18 History Ranitidine [Zantac] 1 tab PO DAILY 02/07/18 06/04/18 History Apixaban [Eliquis] 5 mg PO BID #60 tab 02/09/18 06/04/18 Rx Aspirin *EC* [Ecotrin] 81 mg PO DAILY #30 tab 02/09/18 06/04/18 Rx DiltiaZEM CD [Cardizem CD 240 MG] 240 mg PO DAILY #30 cap 02/09/18 06/04/18 Rx DiltiaZEM CD [Cardizem CD 360 MG] 360 mg PO DAILY #30 cap 02/09/18 06/04/18 Rx Rosuvastatin [Crestor] 20 mg PO HS #30 tab 02/09/18 06/04/18 Rx hydroCHLOROthiazide 0.5 tab PO DAILY 06/04/18 06/04/18 History [Hydrochlorothiazide] Allergies Allergy/AdvReac Type Severity Reaction Status Date / Time No Known Allergies Allergy Verified 02/07/18 21:00 Exam Vital signs: Temperature 96 F L 06/13/18 07:42 Pulse Rate 76 06/13/18 07:42 Respiratory Rate 18 06/13/18 12:33 Blood Pressure 159/62 H 06/13/18 07:42 Pulse Oximetry 99 06/13/18 12:33 - Constitutional well nourished, cooperative - Routine HEENT Exam Head: Present: normocephalic ENT: Present: mucous membranes dry - Routine Neck Exam Absent: JVD, carotid bruit - Routine Chest/Breast/Axilla Exam Chest wall: Absent: tenderness - Routine Respiratory Exam Present: diminished air movement (bases). Absent: dyspnea, wheezes, crackles - Routine Cardiovascular Exam Present: no murmur, irregularly irregular - Routine Abdominal Exam Present: soft, non tender - Routine Extremities Exam Present: edema (LE 2+) - Routine Skin Exam Present: intact, dry, warm - Routine Neurological Exam Present: alert, oriented X3 - Routine Psychiatric Exam Present: normal affect, normal thought process Results 06/14/18 09:58 06/14/18 03:59 CBC 06/13/18 06/13/18 Range/Units 04:01 11:20 WBC 17.6 H (4.5-11.0) T/MM3 RBC 3.11 L (4.50-5.90) M/MM3 Hgb 7.2 L 7.3 L (13.5-17.5) GM/DL Hct 23.5 L (41-53) % Plt Count 439 H (130-400) T/MM3 Neut # (Auto) Not performed Lymph # (Auto) Not performed [place] # (Auto) Not performed Eos # (Auto) Not performed Baso # (Auto) Not performed Comprehensive Metabolic Panel 06/13/18 Range/Units 04:01 Sodium 133 L (136-146) MEQ/L Potassium 4.1 (3.6-5) MEQ/L Chloride 95 L (98-107) MEQ/L Carbon Dioxide 30 (22-30) MEQ/L BUN 23.0 H (9-20) MG/DL Creatinine 0.9 D (0.8-1.5) mg/dL Glucose 240 H (75-110) MG/DL Calcium 7.8 L (8.4-10.2) MG/DL Intake and Output 06/12/18 06/13/18 06/13/18 22:59 06:59 14:59 Intake Total 100 / 100 Output Total 850 / 850 450 / 450 650 / 650 Balance -750 / -750 -450 / -450 -650 / -650 Intake: IV 100 / 100 Ceftriaxone 1 g In D5w 100 ml @ 100 / 100 200 mls/hr IV Q24H [facility] Rx#: [id number] Output: Urine 850 / 850 450 / 450 650 / 650 Other: Urine Appearance Cloudy Clear Clear Urine Color Tea Colored Dark Yellow Pale Yellow Urine Odor Strong Strong Normal Stool Characteristics Normal for Patient Stool Color Brown Stool Consistency Watery Watery Size of Bowel Movement Moderate # Voids 1 1 1 # Bowel Movements 1 Weight 202 lb 2.622 oz Patient Weight 06/14/18 06:59 Weight 202 lb 2.622 oz - Imaging and Cardiology Imaging & Cardiology Narrative: Date of Exam: 06/13/18 Type of Exam(s): US echo doppler complete DATE OF PROCEDURE 06/13/2018 PROCEDURE PERFORMED 2-dimensional echocardiography with M-mode, full color flow spectral Doppler assessment FINDINGS 1. LEFT VENTRICLE. Left ventricle appears normal in size. There is mild concentric left ventricular hypertrophy noted. Overall left ventricular systolic function is normal. Estimated left ventricular ejection fraction is 55 -60%. Diastolic function appears to be normal for patient's age. 2. RIGHT VENTRICLE. Right ventricle appears normal in size. Normal right ventricular wall thickness noted. Right ventricle systolic function is normal. 3. LEFT ATRIUM. The left atrium is moderately enlarged. 4. RIGHT ATRIUM. Right atrium is mildly dilated. 5. MITRAL VALVE. There is mild to moderate posterior mitral annular calcification noted. No significant mitral stenosis noted. Trivial mitral regurgitation noted. 6. AORTIC VALVE. Aortic valve appears trileaflet and normal in appearance. No aortic stenosis noted. No aortic regurgitation noted. 7. TRICUSPID VALVE. Tricuspid valve appears normal in structure. Trivial tricuspid regurgitation noted. 8. PULMONIC VALVE. Pulmonic valve poorly visualized on today's study, only physiologic pulmonic regurgitation noted. 9. INFERIOR VENA CAVA. Inferior vena cava is collapsed suggestive of normal right atrial pressure. 10. PULMONARY ARTERY. Estimated pulmonary artery systolic pressure is 30-35 mmHg. CONCLUSIONS 1. Normal left ventricular systolic function, estimated left ventricular ejection fraction 55-60%. 2. Normal right ventricular systolic function. 3. Moderate posterior mitral annular calcification noted, only trivial mitral regurgitation noted. 4. Trivial tricuspid regurgitation noted. 5. Normal inferior vena cava with normal respirophasic variation. Date of Exam: 06/10/18 Ordering Provider: Ca Marsh APRN Type of Exam(s): US venous doppler UE RT Reason for Exam(s): Right arm swelling, erythema at AC site Indication: Right arm swelling, erythema at AC site PROCEDURE: US venous doppler UE RT: Encounter: Initial Comparison: None Technique: Color Doppler duplex and grayscale sonographic imaging of the right upper extremity was performed. FINDINGS: There is no evidence for acute deep venous thrombosis in the right arm. The right internal jugular, subclavian, axillary and paired brachial veins were evaluated; compression and augmentation were applied where possible. In addition, color and pulsed Doppler demonstrate appropriate spontaneous flow, cardiac pulsatility and variation with respiration. IMPRESSION: No evidence of acute DVT in the right upper extremity. . 06/13/18 14:37 06/13/18 14:37 Date of Exam: 06/08/18 Ordering Provider: Jerri Berry APRN Type of Exam(s): XR chest 2V Reason for Exam(s): wheezing, crackles, history of CHF INDICATION: wheezing, crackles, history of CHF PROCEDURE: CHEST 2-VIEWS UPRIGHT (PA & LAT) Encounter: Initial COMPARISON: June 07, 2018 FINDINGS: Developing airspace disease in the right lower lobe. Left lung appears clear. No pneumothorax. Trace right effusion. Heart size and mediastinal contours are stable. Pulmonary vascularity is normal. Impression: Developing right lower lobe airspace disease could be due to atelectasis or pneumonia. . 06/14/18 15:02 Assessment and Plan - Assessment and Plan (1) GI bleed Current visit: Yes Status: Acute Hgb 7.2 today - Hold Eliquis - Per attending (2) Generalized weakness Current visit: Yes Status: Acute (3) NSVT (nonsustained ventricular tachycardia) Current visit: Yes Status: Acute -6 beat run on 06/04/2018 -no recurrence on telemetry - Continue to monitor (4) Paroxysmal atrial fibrillation Current visit: Yes Status: Chronic Cardizem 360mg daily for rate control - Hold Eliquis due to GI bleed (5) Essential (primary) hypertension Current visit: No Status: Chronic On Coreg, diltiazem and Bumex po - off of hydrochlorothiazide, lisinopril, nifedipine. (6) Mixed hyperlipidemia Current visit: No Status: Chronic Takes Rosuvastatin (7) Atherosclerotic heart disease of [place] coronary artery without angina pectoris Current visit: No Status: Chronic LHC 01/2018: EF 65%, LAD 50%, RCA 40%, medical management - Continue BB, Statin, holding Aspirin due to GI Bleed (8) Type 2 diabetes mellitus without complications Current visit: No Status: Chronic per attending - Assessment and Plan GI bleed Current visit: Yes Status: Acute - Hgb 7.2 today - Hold Eliquis - May have endoscopy as needed, procedure carries low cardiac risk. Generalized weakness Current visit: Yes Status: Acute NSVT (nonsustained ventricular tachycardia) Current visit: Yes Status: Acute -6 beat run on 06/04/2018 -no recurrence on telemetry - Continue to monitor Paroxysmal atrial fibrillation Current visit: Yes Status: Chronic - Cardizem 360mg daily for rate control - Hold Eliquis due to GI bleed Essential (primary) hypertension Current visit: No Status: Chronic - On Coreg, diltiazem and Bumex po - off of hydrochlorothiazide, lisinopril, nifedipine. Mixed hyperlipidemia Current visit: No Status: Chronic - Takes Rosuvastatin Atherosclerotic heart disease of [place] coronary artery without angina pectoris Current visit: No Status: Chronic - [facility] 01/2018: EF 65%, LAD 50%, RCA 40%, medical management - Continue BB, Statin, holding Aspirin due to GI Bleed Type 2 diabetes mellitus without complications Current visit: No Status: Chronic - per attending Thank you for allowing us to participate in the care of this patient. Hospital Course Summary Disclaimer: The visit summary below is not to be considered part of the above Progress Note. Hospital Course: 01/2018- med list from discharge on cardiology service New Apixaban [Eliquis] 5 mg PO BID #60 tab Aspirin *EC* [Ecotrin] 81 mg PO DAILY #30 tab DiltiaZEM CD [Cardizem CD 360 MG] 360 mg PO DAILY #30 cap Rosuvastatin [Crestor] 20 mg PO HS #30 tab DiltiaZEM CD [Cardizem CD 240 MG] 240 mg PO DAILY #30 cap Continue Calcium Carbonate/Vitamin D3 [Calcium 500-Vit D3 200 Tablet] 2 each PO DAILY Ranitidine [Zantac] 1 tab PO DAILY NIFEdipine [Nifedipine ER] 90 mg PO DAILY Loratadine 10 mg PO DAILY PRN PRN Reason: Allergy Symptoms Lisinopril [Prinivil] 40 mg PO DAILY Metformin HCl 1,000 mg PO WS Ferrous Sulfate 325 mg PO DAILY Carvedilol [Coreg] 1 tab PO BIDWM Bumetanide Tab [Bumex 1 mg Tab] 1 mg PO BID Metolazone [Zaroxolyn] 2.5 mg PO DAILY Aspirin 1 tab PO DAILY Cyclobenzaprine [Flexeril] 10 mg PO HS Potassium Chloride [K-Tab ER] 20 meq PO DAILY 06/04/18 Admit patient to ICU due to unstable vital signs just prior to transfer. Repeat basic labs,troponin, and lactate to find trend. Blood cultures pending in [place] CT Abdomen/pelvis due to sepsis, LUQ pain, elevated lactate. Get occult stool, stool for c diff, and GI PCR panel of stool. Monitor h/h. Start Protonix IV BID in the event of an UGIB and avoid blood thinners for now. Uncertain if patient is taking the Eliquis that was prescribed to him in January, as it's not in his medication bag - would hold acutely anyway. Give IVF and monitor UOP and creatinine in morning. UA was non-infectious in [place]. Check CPK. Continue diltiazem for rate control - give 60mg oral q6hrs as we monitor BP closely. Check TSH Hold nifedipine, lisinopril, Coreg, Bumex, and metolazone for now. Need to reconcile home meds with pharmacy as patient's medication bag doesn't match the records. 06/05/18 WBC trended up overnight, but afebrile. Blood cultures pending Lactate trended down - was 4.[address] Abdomen/pelvis shows colitis - likely infectious given clinical scenario. Occult stool positive - likely due to colitis - will continue BID PPI however for now and hold Eliquis. Restart pending clinical course. On Zosyn and Flagyl - change to Rocephin and Flagyl today. C diff negative. Need to ensure patient's med list is correct tomorrow with [facility] as his list doesn't match what's in his bag of medications. Most notably Eliquis. Continue diltiazem for rate control - change back to once daily dosing in the morning. Restart nifedipine and Coreg today. D/C IVF. Continue to hold Bumex, lisinopril, and metolazone for now - likely need to restart soon. Transfer to floor, up out of bed. 06/06/18 WBC improved to 15.8. Cont metronidazole/Rocephin. Hgb down to 8.2 but stool frequency is decreasing. Cont to hold ASA/Eliquis. Cont PPI. Renal function stable - cr 1.0. Weight is climbing - resume Bumex but will cont to hold metolazone and lisinopril. Resume Coreg. Continue Cardizem and nifedipine Increase activity - consult pt/ot 06/07/18 WBC improved to 15.1. Cont metronidazole/Rocephin. Hgb 8.0 - Cont to hold ASA/Eliquis. Cont PPI. Increased abdominal distention, hypoactive bowel sounds - concerned for ileus. Start bowel regimen. Na down to 135; renal functions with increase, BUN 23 and creatinine 1.4; weight continues to trend up. 86.5 --> 90.7 kg. Requiring 5L of oxygen to maintain saturations. Bumex resumed yesterday; metolazone and lisinopril remain on hold. Yesterday's CXR personally reviewed - stable but clinically concerned about failure. Will repeat CXR in am. 06/08/18 WBC stable at 15. Blood cultures remains negative. Cont metronidazole/Rocephin. Abd Xray revels distension. Asked nursing staff to give Dulcolax sup. Last BM 06/05. Increased oxygen demands up to 6 liters. Noted weight is up a proximal 27 pounds since admission. Resumed Bumex 1 milligram twice a day for diuresing. NA continues to trend down. Noted PO intake yesterday over 2200ML. Will add oral fluid restriction of 1800ML/24hrs. 06/09/18 Cont metronidazole/Rocephin; WBC trending down; 13.7. O2 demands slightly improved from yest but noted increased peripheral edema along with fluid pos status; currently on home dose Bumex 1 mg BID but Hctz has not been resumed. With hyponatremia, would prefer to use loop diuretic -- will give an extra 1 mg of Bumex tomorrow am for diuresis. Will also give KDur 20 mEq x1 in the am. Continue fluid restriction. Hgb stable at 8.3 -- consider resuming at least ASA; consider restarting Eliquis soon. Resume cardizem 360 mg; pt has been going in/out of a-fib. 06/10/18 Obtain venous Doppler of right upper ext to rule out DVT - Negative. Monitor erythema to right arm. Cont Rocephin. Discontinued Flagyl. Continues to have edema and weight continues to trend up. Will change Bumex to 1 mg IV- Monitor output. Will resume home Eliquis as recommended by cardiology team. Monitor for bleeding. Hgb stable at 8.3 Monitor BP- Continue on Cardizem 360mg daily. He does not need Nifedipine as long as BP is controlled. Initiated Solu-Medrol to help breathing - 125mg x1, then 62.5mg q 6 hours. 06/11/18 Continue to monitor erythema of the right antecubital as well as distal edema. Venous Doppler negative for DVT Into need is on Bumex twice a day Aird weight continues to trend up. Check chest x-ray today. Was started on Solu-Medrol to help with breathing last evening Continues on IV Rocephin daily Monitor BP- Continue on Cardizem 360mg daily. He does not need Nifedipine as long as BP is controlled. Hemoglobin remains stable, monitor for evidence of bleeding. Given resume of home Eliquis 06/12/18 White count has increased to 19,000, however, the patient remains on prednisone 30 mg daily. Blood cultures are negative after 5 days. Continue on Rocephin, day #9. DC Metronidazole. Hemoglobin has drifted down to 7.7, but the patient has been asymptomatic and he denies any hematochezia. Iron studies are pending as is Vitamin B12. He continues on Eliquis for A. fib. Platelets are increased at 425, monitor for now. Sodium is low but stable at 130. Renal function is stable. Weight has gone down by 3 kg despite having a fluid positive balance. He remains on 4 L of oxygen. Will discuss diuretic management with Dr. Angelo. Consider reviewing with Dr. Bush, conveyor belt installer for Dr. Grider, prior to DC.
[2018-06-13] MEDS: FERUMOXYTOL 510 MG in NS 100 ML IV SCH (15:03)
[2018-06-13] MEDS: NS FLUSH BAG 500ml IV PRN (15:03)
--- NOTE | 2018-06-13 15:59 | Echocardiogram ---
DATE OF PROCEDURE 06/13/2018 PROCEDURE PERFORMED 2-dimensional echocardiography with M-mode, full color flow spectral Doppler assessment FINDINGS 1. LEFT VENTRICLE. Left ventricle appears normal in size. There is mild concentric left ventricular hypertrophy noted. Overall left ventricular systolic function is normal. Estimated left ventricular ejection fraction is 55 -60%. Diastolic function appears to be normal for patient's age. 2. RIGHT VENTRICLE. Right ventricle appears normal in size. Normal right ventricular wall thickness noted. Right ventricle systolic function is normal. 3. LEFT ATRIUM. The left atrium is moderately enlarged. 4. RIGHT ATRIUM. Right atrium is mildly dilated. 5. MITRAL VALVE. There is mild to moderate posterior mitral annular calcification noted. No significant mitral stenosis noted. Trivial mitral regurgitation noted. 6. AORTIC VALVE. Aortic valve appears trileaflet and normal in appearance. No aortic stenosis noted. No aortic regurgitation noted. 7. TRICUSPID VALVE. Tricuspid valve appears normal in structure. Trivial tricuspid regurgitation noted. 8. PULMONIC VALVE. Pulmonic valve poorly visualized on today's study, only physiologic pulmonic regurgitation noted. 9. INFERIOR VENA CAVA. Inferior vena cava is collapsed suggestive of normal right atrial pressure. 10. PULMONARY ARTERY. Estimated pulmonary artery systolic pressure is 30-35 mmHg. CONCLUSIONS 1. Normal left ventricular systolic function, estimated left ventricular ejection fraction 55-60%. 2. Normal right ventricular systolic function. 3. Moderate posterior mitral annular calcification noted, only trivial mitral regurgitation noted. 4. Trivial tricuspid regurgitation noted. 5. Normal inferior vena cava with normal respirophasic variation. [facility]
[2018-06-13] MEDS: SALINE FLUSH 10ml SYRINGE IVF PRN (20:34)
[2018-06-13] MEDS: PANTOPRAZOLE 40 MG INJECTION IVP SCH (20:34)
[2018-06-13] MEDS: ROSUVASTATIN 20 MG TABLET PO SCH (20:35)
[2018-06-14] MEDS: INSULIN ASPART 100unit/ml INJECTION SQ PRN ×4 (07:17→21:43)
--- NOTE | 2018-06-14 08:01 | General Surgery Consult Note ---
Consult date: 06/14/18 Attending Physician: Caroline Angelo MD [facility] Patient Stated Medical History Cardiac Arrhythmia Yes: AFIB Congestive Heart Failure Yes Hypertension Yes Diabetes Mellitus Type 2 Yes Medical History Updates: Hypertension. CHF. iron deficiency anemia. Diabetes type II. CVA. tobacco abuse. atrial fibrillation. Hyperlipidemia Surgical History: Lumbar back X2. heart cath no stents, EF 65% 02/08/2018 [place]. Colonoscopy at the [facility] "about 5-6 years ago" reported as normal per patient. Family History: Father - DM - Social History Smoking status: Current every day smoker Packs per day: 0.5 Substance use type: does not use Alcohol intake frequency: does not drink Current occupational exposures/hazards: No Does patient use chewing tobacco?: No Current residence: Apartment/Private Home Medications Home Medications Medication Instructions Recorded Confirmed Type Bumetanide Tab [Bumex 1 mg Tab] 1 mg PO BID 02/07/18 06/04/18 History Calcium Carbonate/Vitamin D3 2 each PO DAILY 02/07/18 06/04/18 History [Calcium 500-Vit D3 200 Tablet] Carvedilol [Coreg] 1 tab PO BIDWM 02/07/18 06/04/18 History Cyclobenzaprine [Flexeril] 10 mg PO HS 02/07/18 06/04/18 History Lisinopril [Prinivil] 40 mg PO DAILY 02/07/18 06/04/18 History Loratadine 10 mg PO DAILY PRN 02/07/18 06/04/18 History NIFEdipine [Nifedipine ER] 90 mg PO DAILY 02/07/18 06/04/18 History Ranitidine [Zantac] 1 tab PO DAILY 02/07/18 06/04/18 History Apixaban [Eliquis] 5 mg PO BID #60 tab 02/09/18 06/04/18 Rx Aspirin *EC* [Ecotrin] 81 mg PO DAILY #30 tab 02/09/18 06/04/18 Rx DiltiaZEM CD [Cardizem CD 240 MG] 240 mg PO DAILY #30 cap 02/09/18 06/04/18 Rx DiltiaZEM CD [Cardizem CD 360 MG] 360 mg PO DAILY #30 cap 18 06/04/18 Rx Rosuvastatin [Crestor] 20 mg PO HS #30 tab 02/09/18 06/04/18 Rx hydroCHLOROthiazide 0.5 tab PO DAILY 06/04/18 06/04/18 History [Hydrochlorothiazide] Allergies Allergy/AdvReac Type Severity Reaction Status Date / Time No Known Allergies Allergy Verified 02/07/18 21:00 Review of Systems 10-point ROS: negative except for HPI and the following: - General General: Present: other (fatigue & weakness) - Eyes/Ears/Nose/Throat Ear Nose Throat: Present: loose/chipped/cracked teeth - Cardiovascular Cardiovascular: Present: palpitations, irregular heart beat - Respiratory Respiratory: Present: wheezing, difficulty breathing, use of oxygen (at home) - Gastrointestinal Gastrointestinal: Present: diarrhea (tarry) - Musculoskeletal Musculoskeletal: Present: back pain, joint pain - Neurological Neurological: Present: muscle weakness - Endocrine Endocrine: Present: diabetes - Hematologic/Lymphatic Hematologic/Lymphatic: Present: easy bruising, use of blood thinners - Vital Signs Last Vital Signs Temp 97.0 F 06/14/18 07:00 Pulse 78 06/14/18 07:00 Resp 20 06/14/18 07:00 BP 157/72 H 06/14/18 07:00 Pulse Ox 96 06/14/18 07:00 - Laboratory Result Diagrams: 06/14/18 03:59 06/14/18 03:59 General Surgery Results - Results Labs: 06/14/18 03:59 06/14/18 03:59
[2018-06-14] MEDS: PredniSONE 20 MG TABLET PO SCH (08:40)
[2018-06-14] MEDS: PANTOPRAZOLE 40 MG INJECTION IVP SCH ×2 (08:40→21:42)
[2018-06-14] MEDS: BUMETANIDE 1 MG TABLET PO SCH ×2 (08:40→13:57)
[2018-06-14] MEDS: CARVEDILOL 3.125 MG TABLET PO SCH ×2 (08:40→18:18)
[2018-06-14] MEDS: DiltiaZEM CD 360 MG CAPSULE PO SCH (08:40)
[2018-06-14] MEDS: CALCIUM 500 + VIT D 200 TABLET PO SCH (08:40)
--- NOTE | 2018-06-14 08:46 | Consultation ---
DATE OF CONSULTATION 06/13/2018 FINDINGS Mr. House is a 73-year-old gentleman whom I was asked to see today as a result of his history for progressive anemia, rectal bleeding, abnormal CT scan revealing evidence for colitis. Mr. House informs me that prior to his admission, he remembers going to the bathroom. He states that when he "stood up from the toilet things began to spin". Patient states that the next thing he remembers he was on the floor. He states that he does remember falling to the floor. He states that he was not experiencing any element of abdominal pain or sickness prior to this syncopal event. Patient states that he was unable to stand and therefore had crawled to the nearest telephone and had contacted . He informs me that he has not noted that he has had any rectal bleeding since admission. He states that he is beginning to feel better and has "gotten his appetite back". He is unhappy this evening that he was placed on clear liquids. He denied any element of abdominal pain or discomfort. He informs me that about 3-4 years ago at the [facility], he had underwent a colonoscopy which he remembers as normal. He denies history for peptic ulcer disease. As stated above, he denies any element of abdominal pain. He has had progressive anemia since admission and one can see a "blood bag" hanging on the IV pole that has just infused. PHYSICAL EXAMINATION VITALS: Afebrile. Normotensive. Last recorded vitals include temperature 96.8 , pulse 68, respirations 20, blood pressure 148/71, SaO2 97% on 4 liters per nasal cannula. HEENT: Normocephalic. Pupils are equally round and react to light and accommodation. CHEST: Auscultation of the chest reveals some diminished breath sounds. I did not appreciate any rales or rhonchi tonight. HEART: Irregularly irregular. No murmur auscultated. ABDOMEN: Palpation of the abdomen this evening revealed it to be soft and completely nontender. No evidence for hepatosplenomegaly or other abnormal masses. EXTREMITIES: Without clubbing, cyanosis, or edema. NEURO: Cranial nerves II-XII grossly intact. Patient without focal, motor, or sensory deficits. LABORATORY/RADIOLOGIC EVALUATION Patient's admission hemoglobin was 10.3 on June 04. His hemoglobin has drifted down now to a low of 7.2. Mean cell volume is low at 75.6. White count is slightly elevated at 17,000. Platelet count is slightly elevated at 439. BMP obtained and found to be without marked abnormalities. Glucose was elevated at 240. BUN was elevated at 23. I reviewed a CT scan upon admission that did reveal some mesenteric fat stranding near the splenic flexure, indicative of a colitis. This would be the typical location that one would see evidence for an ischemic colitis. Cholelithiasis was also incidentally noted. From a laboratory standpoint, the patient did undergo an infectious workup of his colitis. He was found to have Hemoccult positive stool. Stool bacterial cultures were negative. I have reviewed multiple notes including prior admission H&P , progress notes, echocardiogram from June 13 that did reveal left ventricular ejection fraction of 55%. I reviewed a note from Cardiology today. Blood cultures have been negative to date. The patient was found to have sepsis upon admission that has resolved. ASSESSMENT 73-year-old gentleman with multiple medical comorbidities including history for atrial fibrillation, probable COPD, acute kidney injury, history for atherosclerotic coronary artery disease who presented with syncopal event secondary to sepsis. Patient with CT scan findings indicative for ischemic colitis. Patient with progressive anemia since admission in conjunction with heme-positive stool. PLAN I agree with current management of this patient. He is being treated empirically for peptic ulcer disease and is on Protonix 40 mg IV b.i.d. His diet has been decreased back to liquids in case we are dealing with peptic ulcer disease. I do see that he has been on anticoagulation and that his Eliquis was began to be held today. I agree with transfusion. It would be my thought that we would hold his Eliquis for 48 hours and then proceed with esophagogastroduodenoscopy and colonoscopy for further evaluation of his heme positive stool, abnormal CT scan, and progressive anemia. I did discuss my recommendations with the patient. Discussed potential risk associated with endoscopy which included, but was not exclusive, of bleeding and/or perforation requiring surgery. The patient understood and agreed with proposed plan at this time. SPEEDY
[2018-06-14] MEDS: ALBUTEROL/IPRATROPIUM 2.5mg-0.5mg/3ml NEB AEROSOL SCH ×4 (10:24→21:05)
[2018-06-14] MEDS: BUDESONIDE INH.SOLN 0.5mg/2ml NEB AEROSOL SCH ×2 (10:24→21:05)
--- NOTE | 2018-06-14 14:46 | Progress Note ---
- Date 06/14/18 Subjective: Barry is seen today in follow up and states that he is hungry as he continues on liquid diet. He denies having any pain or feeling short of breath. Reports having a small loose stool this morning. No abdominal pain or nausea. He is currently on 4 liters of oxygen. Weight continues to be up at 92kg. Objective Vital signs: Temperature 97.0 F 06/14/18 07:00 Pulse Rate 79 06/14/18 08:00 Respiratory Rate 16 06/14/18 13:11 Blood Pressure 157/72 H 06/14/18 07:00 Pulse Oximetry 99 06/14/18 10:24 Height/Weight/BMI: Height 1.7 m Weight 92.1 kg Body Mass Index 29.3 - Constitutional Present: no acute distress, well nourished, well developed - Routine HEENT Exam Eye: Present: EOMI ENT: Present: mucous membranes moist, dentition normal - Routine Respiratory Exam Present: CTA bilaterally. Absent: wheezes - Routine Cardiovascular Exam Present: RRR, S1, S2. Absent: murmur - Routine Abdominal Exam Present: soft, normoactive bowel sounds, non distended. Absent: tenderness - Routine Extremities Exam Present: edema (RUE>LUE. BLE- 1-2+) - Routine Skin Exam Present: dry, warm - Routine Neurological Exam Present: alert, oriented X3, CN II-XII intact - Routine Lymphatic Exam Lymphatic: Absent: adenopathy - Routine Psychiatric Exam Present: normal affect Results - Labs CBC & Chem 7: 06/14/18 09:58 06/14/18 03:59 Microbiology Results: Microbiology 06/04/18 14:30 Peripheral/Iv Start Blood Culture - Final No Growth After 5 Days 06/04/18 14:30 Peripheral/Iv Start Blood Culture - Final No Growth After 5 Days Assessment and Plan (1) Atrial fibrillation with RVR Current visit: No Status: Chronic (2) Atherosclerotic heart disease of [place] coronary artery without angina pectoris Current visit: No Status: Chronic (3) Sepsis Current visit: Yes Status: Acute (4) LUIS (acute kidney injury) Current visit: Yes Status: Acute (5) Generalized weakness Current visit: Yes Status: Acute (6) Congestive heart failure Problem details: EF 50% with echo in January 2018 Current visit: Yes Status: Chronic (7) Tobacco abuse Current visit: Yes Status: Chronic Assessment and Plan: Assessment Sepsis - present on admission with WBC, tachy, low BP, high lactate, LUIS - likely GI source, resolved Colitis seen on CT- likely infectious given clinical scenario Heme positive stool/GI bleeding secondary to above Iron Deficiency anemia -hemoglobin continues to trend down -globin 10.3 on admission and 7.2 today. Patient received IV iron Hyponatremia, not POA Atrial fibrillation with RVR Thrombocytosis, not POA V-tach, [id number] beat run on 06/04/2018 -no recurrence on telemetry Elevated creatinine-resolved CAD with an EF of 50%, mild mitral regurgitation, mild aortic insufficiency and mild tricuspid regurgitation Hypertension-he is currently on Coreg, diltiazem and IV Bumex therapy blood pressure control-he is still off of hydrochlorothiazide, lisinopril, nifedipine , and oral Bumex 1 mg by mouth twice a day. On admission, it was also listed that he was on Zaroxolyn 2.5 mg daily, but this is not on his home med list now Dyslipidemia CHF - chronic diastolic heart failure -EF 50% Chronic respiratory failure - 3L at home Plan Appreciated surgical consultation by Dr Gibson We discussed diet- He may have a soft diet today with 1/2 portions only. Nursing staff notified. Will change to clear liquids with no diet tonight at [place], followed by NPO tomorrow night 06[place]16 [place]. Eliquis remains on hold Planned to upper and lower scope 06/16. Continue to follow blood counts carefully- Hgb 7.4. GI panel was negative yesterday. Stool for occult blood is positive Bumex 1 mg BID for ongoing diuresing Antibiotics completed Case discussed with attending, Dr Angelo 06/14/2018-6:30 PM -I examined the patient independently. I reviewed this chart , the patient history, and the [employer]ID[employer] CONSULT[employer]'s/PA's documented findings as above. We discussed and formulated the assessment and plan as above with the additions below.-Dr. Angelo The patient was seen this evening in his room. He states he's feeling well. He has not had a stool today. He is breathing well. He continues to have lower extremity edema and edema in the right upper extremity. Eating and drinking well. He is urinating frequently. On exam he is alert and oriented and in no acute distress. Chest is clear to auscultation. Cardiovascular reveals a regular rate and rhythm. Abdomen is soft and nontender. Extremities reveal 2+ edema in the lower extremities and 2+ edema in the right upper extremity. He continues to have some erythema in the antecubital fossa which does not appear to be an infection. Impression and plan Colitis Anemia-likely acute blood loss anemia on top of chronic anemia Coronary artery disease CHF Chronic respiratory failure-currently on his usual 3 L of oxygen Fluid overload with bilateral lower extremity edema and kilogram weight gain since admission. Will change to IV Bumex tomorrow. Add LAUREN hose. Continue low- sodium diet. Elevate legs when he is in a recliner. Check renal panel tomorrow. Discontinue prednisone after tomorrow's dose - Physician Narrative Narrative: Date: 06/14/18 Time: 1435 Hospital Course Summary Disclaimer: The visit summary below is not to be considered part of the above Progress Note. Hospital Course: 01/2018- med list from discharge on cardiology service New Apixaban [Eliquis] 5 mg PO BID #60 tab Aspirin *EC* [Ecotrin] 81 mg PO DAILY #30 tab DiltiaZEM CD [Cardizem CD 360 MG] 360 mg PO DAILY #30 cap Rosuvastatin [Crestor] 20 mg PO HS #30 tab DiltiaZEM CD [Cardizem CD 240 MG] 240 mg PO DAILY #30 cap Continue Calcium Carbonate/Vitamin D3 [Calcium 500-Vit D3 200 Tablet] 2 each PO DAILY Ranitidine [Zantac] 1 tab PO DAILY NIFEdipine [Nifedipine ER] 90 mg PO DAILY Loratadine 10 mg PO DAILY PRN PRN Reason: Allergy Symptoms Lisinopril [Prinivil] 40 mg PO DAILY Metformin HCl 1,000 mg PO WS Ferrous Sulfate 325 mg PO DAILY Carvedilol [Coreg] 1 tab PO BIDWM Bumetanide Tab [Bumex 1 mg Tab] 1 mg PO BID Metolazone [Zaroxolyn] 2.5 mg PO DAILY Aspirin 1 tab PO DAILY Cyclobenzaprine [Flexeril] 10 mg PO HS Potassium Chloride [K-Tab ER] 20 meq PO DAILY 06/04/18 Admit patient to ICU due to unstable vital signs just prior to transfer. Repeat basic labs,troponin, and lactate to find trend. Blood cultures pending in [place] CT Abdomen/pelvis due to sepsis, LUQ pain, elevated lactate. Get occult stool, stool for c diff, and GI PCR panel of stool. Monitor h/h. Start Protonix IV BID in the event of an UGIB and avoid blood thinners for now. Uncertain if patient is taking the Eliquis that was prescribed to him in January, as it's not in his medication bag - would hold acutely anyway. Give IVF and monitor UOP and creatinine in morning. UA was non-infectious in [place]. Check CPK. Continue diltiazem for rate control - give 60mg oral q6hrs as we monitor BP closely. Check TSH Hold nifedipine, lisinopril, Coreg, Bumex, and metolazone for now. Need to reconcile home meds with pharmacy as patient's medication bag doesn't match the records. 06/05/18 WBC trended up overnight, but afebrile. Blood cultures pending Lactate trended down - was 4.[address] [place] [address] Abdomen/pelvis shows colitis - likely infectious given clinical scenario. Occult stool positive - likely due to colitis - will continue BID PPI however for now and hold Eliquis. Restart pending clinical course. On Zosyn and Flagyl - change to Rocephin and Flagyl today. C diff negative. Need to ensure patient's med list is correct tomorrow with [place] pharmacy as his list doesn't match what's in his bag of medications. Most notably Eliquis. Continue diltiazem for rate control - change back to once daily dosing in the morning. Restart nifedipine and Coreg today. D/C IVF. Continue to hold Bumex, lisinopril, and metolazone for now - likely need to restart soon. Transfer to floor, up out of bed. 06/06/18 WBC improved to 15.8. Cont metronidazole/Rocephin. Hgb down to 8.2 but stool frequency is decreasing. Cont to hold ASA/Eliquis. Cont PPI. Renal function stable - cr 1.0. Weight is climbing - resume Bumex but will cont to hold metolazone and lisinopril. Resume Coreg. Continue Cardizem and nifedipine Increase activity - consult pt/ot 06/07/18 WBC improved to 15.1. Cont metronidazole/Rocephin. Hgb 8.0 - Cont to hold ASA/Eliquis. Cont PPI. Increased abdominal distention, hypoactive bowel sounds - concerned for ileus. Start bowel regimen. Na down to 135; renal functions with increase, BUN 23 and creatinine 1.4; weight continues to trend up. 86.5 --> 90.7 kg. Requiring 5L of oxygen to maintain saturations. Bumex resumed yesterday; metolazone and lisinopril remain on hold. Yesterday's CXR personally reviewed - stable but clinically concerned about failure. Will repeat CXR in am. 06/08/18 WBC stable at 15. Blood cultures remains negative. Cont metronidazole/Rocephin. Abd Xray revels distension. Asked nursing staff to give Dulcolax sup. Last BM 06/05. Increased oxygen demands up to 6 liters. Noted weight is up a proximal 27 pounds since admission. Resumed Bumex 1 milligram twice a day for diuresing. NA continues to trend down. Noted PO intake yesterday over 2200ML. Will add oral fluid restriction of 1800ML/24hrs. 06/09/18 Cont metronidazole/Rocephin; WBC trending down; 13.7. O2 demands slightly improved from yest but noted increased peripheral edema along with fluid pos status; currently on home dose Bumex 1 mg BID but Hctz has not been resumed. With hyponatremia, would prefer to use loop diuretic -- will give an extra 1 mg of Bumex tomorrow am for diuresis. Will also give KDur 20 mEq x1 in the am. Continue fluid restriction. Hgb stable at 8.3 -- consider resuming at least ASA; consider restarting Eliquis soon. Resume cardizem 360 mg; pt has been going in/out of a-fib. 06/10/18 Obtain venous Doppler of right upper ext to rule out DVT - Negative. Monitor erythema to right arm. Cont Rocephin. Discontinued Flagyl. Continues to have edema and weight continues to trend up. Will change Bumex to 1 mg IV- Monitor output. Will resume home Eliquis as recommended by cardiology team. Monitor for bleeding. Hgb stable at 8.3 Monitor BP- Continue on Cardizem 360mg daily. He does not need Nifedipine as long as BP is controlled. Initiated Solu-Medrol to help breathing - 125mg x1, then 62.5mg q 6 hours. 06/11/18 Continue to monitor erythema of the right antecubital as well as distal edema. Venous Doppler negative for DVT Into need is on Bumex twice a day Aird weight continues to trend up. Check chest x-ray today. Was started on Solu-Medrol to help with breathing last evening Continues on IV Rocephin daily Monitor BP- Continue on Cardizem 360mg daily. He does not need Nifedipine as long as BP is controlled. Hemoglobin remains stable, monitor for evidence of bleeding. Given resume of home Eliquis 06/12/18 White count has increased to 19,000, however, the patient remains on prednisone 30 mg daily. Blood cultures are negative after 5 days. Continue on Rocephin, day #9. DC Metronidazole. Hemoglobin has drifted down to 7.7, but the patient has been asymptomatic and he denies any hematochezia. Iron studies are pending as is Vitamin B12. He continues on Eliquis for A. fib. Platelets are increased at 425, monitor for now. Sodium is low but stable at 130. Renal function is stable. Weight has gone down by 3 kg despite having a fluid positive balance. He remains on 4 L of oxygen. Will discuss diuretic management with Dr. Angelo. Consider reviewing with Dr. Bush, operational trainer for Dr. Grider, prior to DC. 06/13/18 Appreciated surgical consultation by Dr Gibson We discussed diet- He may have a soft diet today with 1/2 portions only. Nursing staff notified. Will change to clear liquids with no diet tonight at [place], followed by NPO tomorrow night 06[place]16 [place]. Eliquis remains on hold Planned to upper and lower scope 06/16. Continue to follow blood counts carefully- Hgb 7.4. GI panel was negative yesterday. Stool for occult blood is positive Bumex 1 mg BID for ongoing diuresing Antibiotics completed Case discussed with attending, Dr Angelo
[2018-06-14] MEDS: SALINE FLUSH 10ml SYRINGE IVF PRN (21:42)
[2018-06-14] MEDS: ROSUVASTATIN 20 MG TABLET PO SCH (21:43)
[2018-06-15] MEDS: BUDESONIDE INH.SOLN 0.5mg/2ml NEB AEROSOL SCH ×2 (08:00→20:17)
[2018-06-15] MEDS: ALBUTEROL/IPRATROPIUM 2.5mg-0.5mg/3ml NEB AEROSOL SCH ×4 (08:00→20:17)
[2018-06-15] MEDS: PANTOPRAZOLE 40 MG INJECTION IVP SCH ×2 (08:23→20:51)
[2018-06-15] MEDS: DiltiaZEM CD 360 MG CAPSULE PO SCH (08:24)
[2018-06-15] MEDS: CALCIUM 500 + VIT D 200 TABLET PO SCH (08:24)
[2018-06-15] MEDS: CARVEDILOL 3.125 MG TABLET PO SCH ×2 (08:24→17:17)
[2018-06-15] MEDS: PredniSONE 20 MG TABLET PO SCH (08:24)
[2018-06-15] MEDS: BUMETANIDE 1 MG TABLET PO SCH (08:24)
[2018-06-15] MEDS ORDERED: Bisacodyl EC TAB 5 MG TABLET PO ONE (10:00)
[2018-06-15] MEDS: INSULIN ASPART 100unit/ml INJECTION SQ PRN ×3 (10:18→20:52)
--- NOTE | 2018-06-15 10:36 | XRay Report ---
Indication: leukocytosis, rule out pneumonia PROCEDURE: XR chest 1V: Encounter: Initial Comparison: June 11, 2018 Findings: Improving aeration of the right lower lobe with persistent small effusions. Left lung appears clear. No pneumothorax. Heart size and mediastinal contours are stable. Pulmonary vascularity is normal. Impression: Improving aeration of the right lower lobe with small effusions. .
--- NOTE | 2018-06-15 12:23 | Progress Note ---
- Date 06/15/18 Subjective: The patient was seen early this afternoon in his room. He had an increase in wbc overnight and increased HR. He did have good diuresis yesterday with bumex iv and was negative 3.4 liter on I/O. He states he feels fine this morning. He feels less edematous. He denies any cough. He denies any shortness of breath. He is on his usual 3 L of oxygen. He denies any chest pain. Heart rate was up in the 120s with A. fib. He has chronic intermittent A. fib. He is anticoagulated. He denies any dysuria. He denies feeling feverish. He denies any sore throat or sinus congestion. He has had some occasional diarrhea but that has been ongoing and not any worse. He denies abdominal pain. He denies blood in his stools. Lactate was obtained and was mildly elevated at 2.5. Chest x-ray was improved. UA was negative. Objective Vital signs: Temperature 97.3 F 06/14/18 15:11 Pulse Rate 123 H 06/15/18 08:18 Respiratory Rate 10 06/15/18 11:27 Blood Pressure 140/87 H 06/15/18 07:00 Pulse Oximetry 95 06/15/18 11:27 Height/Weight/BMI: Height 1.7 m Weight 88 kg Body Mass Index 29.3 Comments: Afebrile, heart rate 123, when I went in the room was down into the 90s. Blood pressure 140/87, O2 sat 95% on 3 L Weight is 88 kg down from 92.1 yesterday. INR was -3.4 L yesterday GEN-alert, oriented, no acute distress HEENT-sclera anicteric, oropharynx is moist NECK-supple CV-regular rate and rhythm CHEST-clear to auscultation bilaterally ABD-soft, nontender, nondistended with positive bowel sounds -no Tejeda EXT-1 edema of the legs and right upper extremity (overall, edema is much better ) NEURO-no focal deficits SKIN-erythema in the right antecubital fossa is improving Results - Labs CBC & Chem 7: 06/15/18 04:20 06/15/18 04:20 Labs: Neutrophils are 79% down from 81%. Bands are 4% down from 5% Lactate 2.5, pro-calcitonin less than 0.05, albumin 3.2, calcium 8.2, phosphorus 2.8, blood sugars ranging from 123-332 Urinalysis is negative Microbiology Results: Microbiology 06/04/18 14:30 Peripheral/Iv Start Blood Culture - Final No Growth After 5 Days 06/04/18 14:30 Peripheral/Iv Start Blood Culture - Final No Growth After 5 Days - Impressions Chest x-ray shows improved aeration of the right lower lobe, small effusions Assessment and Plan (1) Atrial fibrillation with RVR Current visit: No Status: Chronic (2) Atherosclerotic heart disease of eek coronary artery without angina pectoris Current visit: No Status: Chronic (3) Sepsis Current visit: Yes Status: Acute (4) LUIS (acute kidney injury) Current visit: Yes Status: Acute (5) Generalized weakness Current visit: Yes Status: Acute (6) Congestive heart failure Problem details: EF 50% with echo in January 2018 Current visit: Yes Status: Chronic (7) Tobacco abuse Current visit: Yes Status: Chronic Assessment and Plan: Assessment Sepsis - present on admission with WBC, tachy, low BP, high lactate, LUIS - likely GI source, resolved Leukocytosis on 06/15/2018 without significant change in left shift-on steroids- mildly elevated lactate of 2.5, patient is asymptomatic-workup for sepsis Colitis seen on CT- likely infectious given clinical scenario Heme positive stool/GI bleeding secondary to above Iron Deficiency anemia -hemoglobin continues to trend down -globin 10.3 on admission and 7.2 today. Patient received IV iron Hyponatremia, not POA Atrial fibrillation with RVR Thrombocytosis, not POA V-tach, [id number] beat run on 06/04/2018 -no recurrence on telemetry Elevated creatinine-resolved CAD with an EF of 50%, mild mitral regurgitation, mild aortic insufficiency and mild tricuspid regurgitation Hypertension-he is currently on Coreg, diltiazem and IV Bumex therapy blood pressure control-he is still off of hydrochlorothiazide, lisinopril, nifedipine , and oral Bumex 1 mg by mouth twice a day. On admission, it was also listed that he was on Zaroxolyn 2.5 mg daily, but this is not on his home med list now Dyslipidemia CHF - chronic diastolic heart failure -EF 50% Chronic respiratory failure - 3L at home Plan The patient was found to have a white count of 28 today from 19 yesterday. Bands are 4. He is afebrile. He feels well. Lactate was obtained and was mildly elevated at 2.5. Pro-calcitonin was normal. Chest x-ray showed improved aeration of the right lower lobe. UA was negative. He had a recent GI panel 16 for diarrhea which was negative. He was diuresed significantly yesterday and may just be a little intravascularly dry. We'll repeat lactate and draw blood cultures this afternoon. Hold oral Bumex today. Can decide tomorrow whether or not it should be resumed The patient was previously on Rocephin and Flagyl for colitis but these were discontinued on 06/12/2018. Eliquis is on hold for heme positive stools. Plan for EGD and colonoscopy tomorrow with Dr. Gibson. Regarding A. fib with RVR, cardiology was notified. Rate has slowed down his usual morning diltiazem and carvedilol Patient had been on steroids for acute respiratory failure, prednisone will be discontinued after this morning's dose. Addendum-3:35 PM-repeat lactate after 500 cc bolus was 4.2. I did reexamine the patient and he states he feels just fine. He is finishing up his bowel prep in preparation for EGD and colonoscopy tomorrow. Recheck vitals now show a picture of 98, heart rate 95, respirations 16, blood pressure 141/72, O2 sat 97% on 3 L. He denies feeling feverish or chilled. He denies any sinus congestion, sore throat or cough. He denies increased shortness of breath. He denies any abdominal pain or cramping. He has not had a bowel movement yet with the bowel prep. He denies any dysuria. His urinalysis was was negative for signs of infection. Chest x-ray was improving. With increase in lactate and elevated white count, blood cultures were drawn and will start Rocephin 1 g IV daily empirically. Will give 1 L of fluid over 2 hours. He does not appear to be in septic shock. He appears about the best that I've seen him during this hospital course. I am not giving the 30 mL's per kilogram of IV fluid because he does not appear septic and he already suffers from mild fluid overload. Recheck basic metabolic and lactate at 6:30 this evening. Vitals every hour for now. The patient will let us know if he feel poorly. Due to frequent checks today for elevated lactate, and greater than 45 minutes of time being spent with the patient today, will record greater than 30 minutes of critical care time today. DVT Prophylaxis: SCD's GI Prophylaxis: Protonix Resuscitation Status: Full Code - Physician Narrative Narrative: Date: 06/15/18 Time: 1218 Hospital Course Summary Disclaimer: The visit summary below is not to be considered part of the above Progress Note. Hospital Course: 01/2018- med list from discharge on cardiology service New Apixaban [Eliquis] 5 mg PO BID #60 tab Aspirin *EC* [Ecotrin] 81 mg PO DAILY #30 tab DiltiaZEM CD [Cardizem CD 360 MG] 360 mg PO DAILY #30 cap Rosuvastatin [Crestor] 20 mg PO HS #30 tab DiltiaZEM CD [Cardizem CD 240 MG] 240 mg PO DAILY #30 cap Continue Calcium Carbonate/Vitamin D3 [Calcium 500-Vit D3 200 Tablet] 2 each PO DAILY Ranitidine [Zantac] 1 tab PO DAILY NIFEdipine [Nifedipine ER] 90 mg PO DAILY Loratadine 10 mg PO DAILY PRN PRN Reason: Allergy Symptoms Lisinopril [Prinivil] 40 mg PO DAILY Metformin HCl 1,000 mg PO WS Ferrous Sulfate 325 mg PO DAILY Carvedilol [Coreg] 1 tab PO BIDWM Bumetanide Tab [Bumex 1 mg Tab] 1 mg PO BID Metolazone [Zaroxolyn] 2.5 mg PO DAILY Aspirin 1 tab PO DAILY Cyclobenzaprine [Flexeril] 10 mg PO HS Potassium Chloride [K-Tab ER] 20 meq PO DAILY 06/04/18 Admit patient to ICU due to unstable vital signs just prior to transfer. Repeat basic labs,troponin, and lactate to find trend. Blood cultures pending in [facility] [place] Abdomen/pelvis due to sepsis, LUQ pain, elevated lactate. Get occult stool, stool for c diff, and GI PCR panel of stool. Monitor h/h. Start Protonix IV BID in the event of an UGIB and avoid blood thinners for now. Uncertain if patient is taking the Eliquis that was prescribed to him in January, as it's not in his medication bag - would hold acutely anyway. Give IVF and monitor UOP and creatinine in morning. UA was non-infectious in [place]. Check CPK. Continue diltiazem for rate control - give 60mg oral q6hrs as we monitor BP closely. Check TSH Hold nifedipine, lisinopril, Coreg, Bumex, and metolazone for now. Need to reconcile home meds with pharmacy as patient's medication bag doesn't match the records. 06/05/18 WBC trended up overnight, but afebrile. Blood cultures pending Lactate trended down - was 4.[address] [place] [address] Abdomen/pelvis shows colitis - likely infectious given clinical scenario. Occult stool positive - likely due to colitis - will continue BID PPI however for now and hold Eliquis. Restart pending clinical course. On Zosyn and Flagyl - change to Rocephin and Flagyl today. C diff negative. Need to ensure patient's med list is correct tomorrow with [facility] as his list doesn't match what's in his bag of medications. Most notably Eliquis. Continue diltiazem for rate control - change back to once daily dosing in the morning. Restart nifedipine and Coreg today. D/C IVF. Continue to hold Bumex, lisinopril, and metolazone for now - likely need to restart soon. Transfer to floor, up out of bed. 06/06/18 WBC improved to 15.8. Cont metronidazole/Rocephin. Hgb down to 8.2 but stool frequency is decreasing. Cont to hold ASA/Eliquis. Cont PPI. Renal function stable - cr 1.0. Weight is climbing - resume Bumex but will cont to hold metolazone and lisinopril. Resume Coreg. Continue Cardizem and nifedipine Increase activity - consult pt/ot 06/07/18 WBC improved to 15.1. Cont metronidazole/Rocephin. Hgb 8.0 - Cont to hold ASA/Eliquis. Cont PPI. Increased abdominal distention, hypoactive bowel sounds - concerned for ileus. Start bowel regimen. Na down to 135; renal functions with increase, BUN 23 and creatinine 1.4; weight continues to trend up. 86.5 --> 90.7 kg. Requiring 5L of oxygen to maintain saturations. Bumex resumed yesterday; metolazone and lisinopril remain on hold. Yesterday's CXR personally reviewed - stable but clinically concerned about failure. Will repeat CXR in am. 06/08/18 WBC stable at 15. Blood cultures remains negative. Cont metronidazole/Rocephin. Abd Xray revels distension. Asked nursing staff to give Dulcolax sup. Last BM 06/05. Increased oxygen demands up to 6 liters. Noted weight is up a proximal 27 pounds since admission. Resumed Bumex 1 milligram twice a day for diuresing. NA continues to trend down. Noted PO intake yesterday over 2200ML. Will add oral fluid restriction of 1800ML/24hrs. 06/09/18 Cont metronidazole/Rocephin; WBC trending down; 13.7. O2 demands slightly improved from yest but noted increased peripheral edema along with fluid pos status; currently on home dose Bumex 1 mg BID but Hctz has not been resumed. With hyponatremia, would prefer to use loop diuretic -- will give an extra 1 mg of Bumex tomorrow am for diuresis. Will also give KDur 20 mEq x1 in the am. Continue fluid restriction. Hgb stable at 8.3 -- consider resuming at least ASA; consider restarting Eliquis soon. Resume cardizem 360 mg; pt has been going in/out of a-fib. 06/10/18 Obtain venous Doppler of right upper ext to rule out DVT - Negative. Monitor erythema to right arm. Cont Rocephin. Discontinued Flagyl. Continues to have edema and weight continues to trend up. Will change Bumex to 1 mg IV- Monitor output. Will resume home Eliquis as recommended by cardiology team. Monitor for bleeding. Hgb stable at 8.3 Monitor BP- Continue on Cardizem 360mg daily. He does not need Nifedipine as long as BP is controlled. Initiated Solu-Medrol to help breathing - 125mg x1, then 62.5mg q 6 hours. 06/11/18 Continue to monitor erythema of the right antecubital as well as distal edema. Venous Doppler negative for DVT Into need is on Bumex twice a day Aird weight continues to trend up. Check chest x-ray today. Was started on Solu-Medrol to help with breathing last evening Continues on IV Rocephin daily Monitor BP- Continue on Cardizem 360mg daily. He does not need Nifedipine as long as BP is controlled. Hemoglobin remains stable, monitor for evidence of bleeding. Given resume of home Eliquis 06/12/18 White count has increased to 19,000, however, the patient remains on prednisone 30 mg daily. Blood cultures are negative after 5 days. Continue on Rocephin, day #9. DC Metronidazole. Hemoglobin has drifted down to 7.7, but the patient has been asymptomatic and he denies any hematochezia. Iron studies are pending as is Vitamin B12. He continues on Eliquis for A. fib. Platelets are increased at 425, monitor for now. Sodium is low but stable at 130. Renal function is stable. Weight has gone down by 3 kg despite having a fluid positive balance. He remains on 4 L of oxygen. Will discuss diuretic management with Dr. Angelo. Consider reviewing with Dr. Bush, coffee plantation worker for Dr. Grider, prior to DC. 06/13/18 Appreciated surgical consultation by Dr Gibson We discussed diet- He may have a soft diet today with 1/2 portions only. Nursing staff notified. Will change to clear liquids with no diet tonight at [place], followed by NPO tomorrow night 06[place]16 [place]. Eliquis remains on hold Planned to upper and lower scope 06/16. Continue to follow blood counts carefully- Hgb 7.4. GI panel was negative yesterday. Stool for occult blood is positive Bumex 1 mg BID for ongoing diuresing Antibiotics completed Case discussed with attending, Dr Angelo
[2018-06-15] MEDS ORDERED: POLYETHYL. GLYCOL 3350 BOTTLE 238 GM PO ONE (13:00)
[2018-06-15] MEDS ORDERED: NS 1,000 ML IV ONE (15:33)
[2018-06-15] MEDS ORDERED: CEFTRIAXONE 1 G in D5W 100 ML IV SCH (15:45)
--- NOTE | 2018-06-15 18:01 | Progress Note ---
DATE OF SERVICE 06/15/2018 FINDINGS Mr. House was seen earlier today on rounds. He was in the process of drinking his bowel prep. He was in fairly good spirits. Denied increasing shortness of breath. Denied abdominal pain. PHYSICAL EXAM VITAL SIGNS: Afebrile, normotensive. Last recorded vitals include temperature 98.0, pulse 110, respirations 16, SAO2 90% on 3 L/nasal cannula. CHEST: Clear to auscultation bilaterally. HEART: Regular rate and rhythm. Normal S1 and S2 without gallops, murmurs or clicks. ABDOMEN: Soft, nontender. No evidence for hepatosplenomegaly or other abnormal masses. LABORATORY/RADIOGRAPHIC EVALUATION Patient had a CBC today and his white count had increased to 28,000. Hemoglobin overall is stable at 7.6. BMP was obtained and found to be essentially within normal limits. Plasma lactate was obtained and found be elevated at 4.2. UA was negative. ASSESSMENT 73-year-old gentleman with multiple medical comorbidities who was admitted with sepsis and CT scan evidence for ischemic colitis. Patient with progressive anemia since admission. PLAN I did discuss this case earlier this morning with the hospitalist. She informed me the patient did receive some corticosteroids which could be contributing to his leukocytosis noted upon laboratory evaluation. For now we will plan on still proceeding with colonoscopy and EGD tomorrow. The above plan was discussed with the patient. He understood and agreed. [facility]
[2018-06-15] MEDS: SALINE FLUSH 10ml SYRINGE IVF PRN (20:52)
[2018-06-15] MEDS: ROSUVASTATIN 20 MG TABLET PO SCH (20:52)
[2018-06-16] MEDS: BUDESONIDE INH.SOLN 0.5mg/2ml NEB AEROSOL SCH ×2 (07:33→20:26)
[2018-06-16] MEDS: ALBUTEROL/IPRATROPIUM 2.5mg-0.5mg/3ml NEB AEROSOL SCH ×4 (07:33→20:26)
[2018-06-16] MEDS ORDERED: MIDAZOLAM 2mg/2ml INJECTION ONE (07:33)
[2018-06-16] MEDS ORDERED: LIDOCAINE 1% (10mg/ml) 2mL INJ PF SDV ONE (07:34)
[2018-06-16] MEDS ORDERED: PROPOFOL 500 MG/50 ML VIAL ONE (07:34)
[2018-06-16] MEDS: CALCIUM 500 + VIT D 200 TABLET PO SCH (09:46)
[2018-06-16] MEDS: CARVEDILOL 3.125 MG TABLET PO SCH ×2 (09:50→17:01)
[2018-06-16] MEDS: DiltiaZEM CD 360 MG CAPSULE PO SCH (09:50)
[2018-06-16] MEDS: LR 1,000 ML IV SCH (10:43)
[2018-06-16] MEDS ORDERED: KETAMINE 500 MG/10 ML INJECTION ONE (11:37)
--- NOTE | 2018-06-16 12:15 | Procedure Note ---
- Procedure Date/Time: Date: 06/16/18 Time: 1215 Surgeon: Arthur Proceure: Colonoscopy with biopsies - Postoperative Colonoscopy Diagnosis Polyps at: Other (ischemic colitis) - Complications Estimated Blood Loss: See Anesthesia Record. Vital Signs: See Anesthesia and PACU record.
--- NOTE | 2018-06-16 12:16 | Procedure Note ---
- Procedure Date/Time: Date: 06/16/18 Time: 1215 Surgeon: Arthur Proceure: Colonoscopy with biopsies, EGD - Postoperative Colonoscopy Diagnosis Polyps at: Other (ischemic colitis) - Postoperative EGD Diagnosis Postoperative EGD Diagnosis: Other (normal EGD) - Complications Estimated Blood Loss: See Anesthesia Record. Vital Signs: See Anesthesia and PACU record.
--- NOTE | 2018-06-16 12:17 | Anesthesia Postoperative Note ---
- Status Vital Signs: Temperature 98.1 F 06/16/18 10:03 Pulse Rate 76 06/16/18 10:03 Respiratory Rate 18 06/16/18 10:03 Blood Pressure 183/78 H 06/16/18 10:03 Pulse Oximetry 99 06/16/18 10:03 Respiratory Function: Airway Patent Cardiovascular Function: Irregular Pulse EKG: A-fib Mental Status: Alert and Oriented Hydration: Taking PO Fluids, IV Infusing Complications During Recover: None Apparent - Follow-Up Instructions Instructions: Per Surgeon
[2018-06-16] MEDS ORDERED: PIPERACILLIN/TAZOBACTAM 3.375 GM in NS 100 ML IV SCH (12:51)
[2018-06-16] MEDS: PANTOPRAZOLE 40 MG INJECTION IVP SCH ×2 (13:17→21:50)
[2018-06-16] MEDS: PIPERACILLIN/TAZOBACTAM 3.375 GM in NS 100 ML IV SCH ×2 (14:19→21:55)
[2018-06-16] MEDS: NS FLUSH BAG 500ml IV PRN (14:20)
--- NOTE | 2018-06-16 14:41 | Progress Note ---
- Date 06/16/18 Subjective: Patient resting in bedside chair at the time of interview. Status post EGD and colonoscopy performed earlier this morning by Dr. Gibson. No reported chest pain, no palpitations, no shortness of breath, no subjective fever, no chills, no abdominal pain, no flank pain, no dysuria. Case discussed with Dr. Gibson over the phone, EGD did not show any significant findings. Colonoscopy showed evidence of descending colitis, concern for ischemic colitis status secondary to sepsis however no evidence of active bleeding. Multiple biopsies have been obtained and pathology results are awaited. Also, Dr. Gibson reported changing IV Rocephin to IV Zosyn antibiotic. Discussed with patient about colonoscopy findings, all questions answered to his satisfaction. General surgery has progressed patient diet to regular. We will plan to switch to low salt diet for dinner. Lactic acid which was elevated as high as 4.1 yesterday, later on decreased to 1.2 this morning. Hemoglobin 7.6 today, same as yesterday. Leukocytosis persistent, WBC count 27,400 this morning. Patient afebrile overnight. Patient on home medications and liquids which has been held for right now with evidence of anemia, plan to restart tomorrow if H&H stable. Objective Vital signs: Temperature 97.6 F 06/16/18 12:45 Pulse Rate 87 06/16/18 13:45 Respiratory Rate 18 06/16/18 13:00 Blood Pressure 142/64 H 06/16/18 13:45 Pulse Oximetry 100 06/16/18 13:45 Height/Weight/BMI: Height 1.7 m Weight 86.9 kg Body Mass Index 29.3 - Additional findings Additional findings: General: Alert, awake, oriented 3. Not in acute distress. Head: Pupils equal, round, reactive to light and accommodation. Extraocular movements intact. Neck: No elevation in JVP. No pharyngeal erythema noted. Chest: The patient does not use accessory muscles for breathing. Lungs: Breath sounds audible on auscultation bilateral lung stroud. No wheezing , no rhonchi, no crepitations, no crackles. No pleural rub. CVS: S1, S2 heard on auscultation. Normal rate and rhythm. No murmur, no S3/S4 gallops. Abdomen: Soft, nontender, no distention. Bowel sounds appreciated on auscultation. : No flank tenderness, no suprapubic distention or tenderness. Skin: No rashes, no induration, no erythema. Capillary refill less than 4 seconds. Extremities: 1+ pitting pedal edema bilateral lower extremities. No calf tenderness bilaterally. Palpable dorsalis pedis and posterior tibial pulses bilateral lower extremities. DOG BEAUTICIAN: Strength 5/5 bilateral upper and lower extremities. Sensations intact. No slurred speech, no facial droop. No discernible focal neurological deficits. Results - Labs CBC & Chem 7: 06/16/18 04:08 06/16/18 04:08 Microbiology Results: Microbiology 06/15/18 14:38 Peripheral/Iv Start Blood Culture - Preliminary Culture Initiated - Results Pending 06/15/18 14:38 Peripheral/Iv Start Gram Stain - Final 06/15/18 14:38 Peripheral/Iv Start Blood Culture - Preliminary Gram Positive Anastacio 06/04/18 14:30 Peripheral/Iv Start Blood Culture - Final No Growth After 5 Days 06/04/18 14:30 Peripheral/Iv Start Blood Culture - Final No Growth After 5 Days Assessment and Plan (1) Atrial fibrillation with RVR Current visit: No Status: Chronic (2) Atherosclerotic heart disease of [place] coronary artery without angina pectoris Current visit: No Status: Chronic (3) Sepsis Current visit: Yes Status: Acute (4) LUIS (acute kidney injury) Current visit: Yes Status: Acute (5) Generalized weakness Current visit: Yes Status: Acute (6) Congestive heart failure Problem details: EF 50% with echo in January 2018 Current visit: Yes Status: Chronic (7) Tobacco abuse Current visit: Yes Status: Chronic Assessment and Plan: Assessment Sepsis - present on admission with WBC, tachy, low BP, high lactate, LUIS - likely GI source, resolved Leukocytosis on 06/15/2018 without significant change in left shift-on steroids- antibiotics switched to IV Zosyn. Colitis seen on CT- ischemic versus infectious, likely infectious given clinical scenario Heme positive stoolstatus post EGD/colonoscopy performed by Dr. Gibson on Iron Deficiency anemia -hemoglobin 7.6 today. Patient received IV iron Hyponatremia, not POA Atrial fibrillation with RVR, rate controlled Thrombocytosis, not POA V-tach, [id number] beat run on 06/04/2018 -no recurrence on telemetry Elevated creatinine-resolved CAD with an EF of 50%, mild mitral regurgitation, mild aortic insufficiency and mild tricuspid regurgitation Hypertension Dyslipidemia CHF - chronic diastolic heart failure -EF 50%. Tentative plan to restart Bumex from tomorrow morning. Chronic respiratory failure - 3L at home Plan WBC count remains elevated at 27,400. Lactic acid which was 4.1 yesterday improved to 1.2 today. DC IV Rocephin. Patient on IV Zosyn. Status post EGD, colonoscopy on 06/16/2018; colonoscopy showed evidence of ischemic colitis likely secondary to sepsis. Clinically, patient does not have any abdominal pain or tenderness to palpation and tolerating oral intake. Plan to restart patient on Bumex 1 mg by mouth twice a day from tomorrow. Will monitor intake and output, daily weights. Pro-calcitonin was normal. Chest x-ray showed improved aeration of the right lower lobe. UA was negative. He had a recent GI panel 06/13/2018 for diarrhea which was negative. The patient was previously on Rocephin and Flagyl for colitis but these were discontinued on 06/12/2018. Eliquis is on hold for heme positive stools. Case discussed with Dr. Gibson, plan to restart home medication eliquis from tomorrow provided H&H stable. Regarding A. fib with RVR, cardiology was notified. Rate has slowed down his usual morning diltiazem and carvedilol Patient had been on steroids for acute respiratory failure, prednisone will be discontinued after this morning's dose. DVT Prophylaxis: SCD's GI Prophylaxis: Protonix Resuscitation Status: Full Code - Time spent with patient Time with patient PN: 35 minutes - Physician Narrative Narrative: Date: 06/16/18 Time: 1438 Hospital Course Summary Disclaimer: The visit summary below is not to be considered part of the above Progress Note. Hospital Course: 01/2018- med list from discharge on cardiology service New Apixaban [Eliquis] 5 mg PO BID #60 tab Aspirin *EC* [Ecotrin] 81 mg PO DAILY #30 tab DiltiaZEM CD [Cardizem CD 360 MG] 360 mg PO DAILY #30 cap Rosuvastatin [Crestor] 20 mg PO HS #30 tab DiltiaZEM CD [Cardizem CD 240 MG] 240 mg PO DAILY #30 cap Continue Calcium Carbonate/Vitamin D3 [Calcium 500-Vit D3 200 Tablet] 2 each PO DAILY Ranitidine [Zantac] 1 tab PO DAILY NIFEdipine [Nifedipine ER] 90 mg PO DAILY Loratadine 10 mg PO DAILY PRN PRN Reason: Allergy Symptoms Lisinopril [Prinivil] 40 mg PO DAILY Metformin HCl 1,000 mg PO WS Ferrous Sulfate 325 mg PO DAILY Carvedilol [Coreg] 1 tab PO BIDWM Bumetanide Tab [Bumex 1 mg Tab] 1 mg PO BID Metolazone [Zaroxolyn] 2.5 mg PO DAILY Aspirin 1 tab PO DAILY Cyclobenzaprine [Flexeril] 10 mg PO HS Potassium Chloride [K-Tab ER] 20 meq PO DAILY 06/04/18 Admit patient to ICU due to unstable vital signs just prior to transfer. Repeat basic labs,troponin, and lactate to find trend. Blood cultures pending in [place]. CT Abdomen/pelvis due to sepsis, LUQ pain, elevated lactate. Get occult stool, stool for c diff, and GI PCR panel of stool. Monitor h/h. Start Protonix IV BID in the event of an UGIB and avoid blood thinners for now. Uncertain if patient is taking the Eliquis that was prescribed to him in January, as it's not in his medication bag - would hold acutely anyway. Give IVF and monitor UOP and creatinine in morning. UA was non-infectious in [place]. Check CPK. Continue diltiazem for rate control - give 60mg oral q6hrs as we monitor BP closely. Check TSH Hold nifedipine, lisinopril, Coreg, Bumex, and metolazone for now. Need to reconcile home meds with pharmacy as patient's medication bag doesn't match the records. 06/05/18 WBC trended up overnight, but afebrile. Blood cultures pending Lactate trended down - was 4.[address] [place] [address] Abdomen/pelvis shows colitis - likely infectious given clinical scenario. Occult stool positive - likely due to colitis - will continue BID PPI however for now and hold Eliquis. Restart pending clinical course. On Zosyn and Flagyl - change to Rocephin and Flagyl today. C diff negative. Need to ensure patient's med list is correct tomorrow with [facility] as his list doesn't match what's in his bag of medications. Most notably Eliquis. Continue diltiazem for rate control - change back to once daily dosing in the morning. Restart nifedipine and Coreg today. D/C IVF. Continue to hold Bumex, lisinopril, and metolazone for now - likely need to restart soon. Transfer to floor, up out of bed. 06/06/18 WBC improved to 15.8. Cont metronidazole/Rocephin. Hgb down to 8.2 but stool frequency is decreasing. Cont to hold ASA/Eliquis. Cont PPI. Renal function stable - cr 1.0. Weight is climbing - resume Bumex but will cont to hold metolazone and lisinopril. Resume Coreg. Continue Cardizem and nifedipine Increase activity - consult pt/ot 06/07/18 WBC improved to 15.1. Cont metronidazole/Rocephin. Hgb 8.0 - Cont to hold ASA/Eliquis. Cont PPI. Increased abdominal distention, hypoactive bowel sounds - concerned for ileus. Start bowel regimen. Na down to 135; renal functions with increase, BUN 23 and creatinine 1.4; weight continues to trend up. 86.5 --> 90.7 kg. Requiring 5L of oxygen to maintain saturations. Bumex resumed yesterday; metolazone and lisinopril remain on hold. Yesterday's CXR personally reviewed - stable but clinically concerned about failure. Will repeat CXR in am. 06/08/18 WBC stable at 15. Blood cultures remains negative. Cont metronidazole/Rocephin. Abd Xray revels distension. Asked nursing staff to give Dulcolax sup. Last BM 06/05. Increased oxygen demands up to 6 liters. Noted weight is up a proximal 27 pounds since admission. Resumed Bumex 1 milligram twice a day for diuresing. NA continues to trend down. Noted PO intake yesterday over 2200ML. Will add oral fluid restriction of 1800ML/24hrs. 06/09/18 Cont metronidazole/Rocephin; WBC trending down; 13.7. O2 demands slightly improved from yest but noted increased peripheral edema along with fluid pos status; currently on home dose Bumex 1 mg BID but Hctz has not been resumed. With hyponatremia, would prefer to use loop diuretic -- will give an extra 1 mg of Bumex tomorrow am for diuresis. Will also give KDur 20 mEq x1 in the am. Continue fluid restriction. Hgb stable at 8.3 -- consider resuming at least ASA; consider restarting Eliquis soon. Resume cardizem 360 mg; pt has been going in/out of a-fib. 06/10/18 Obtain venous Doppler of right upper ext to rule out DVT - Negative. Monitor erythema to right arm. Cont Rocephin. Discontinued Flagyl. Continues to have edema and weight continues to trend up. Will change Bumex to 1 mg IV- Monitor output. Will resume home Eliquis as recommended by cardiology team. Monitor for bleeding. Hgb stable at 8.3 Monitor BP- Continue on Cardizem 360mg daily. He does not need Nifedipine as long as BP is controlled. Initiated Solu-Medrol to help breathing - 125mg x1, then 62.5mg q 6 hours. 06/11/18 Continue to monitor erythema of the right antecubital as well as distal edema. Venous Doppler negative for DVT Into need is on Bumex twice a day Aird weight continues to trend up. Check chest x-ray today. Was started on Solu-Medrol to help with breathing last evening Continues on IV Rocephin daily Monitor BP- Continue on Cardizem 360mg daily. He does not need Nifedipine as long as BP is controlled. Hemoglobin remains stable, monitor for evidence of bleeding. Given resume of home Eliquis 06/12/18 White count has increased to 19,000, however, the patient remains on prednisone 30 mg daily. Blood cultures are negative after 5 days. Continue on Rocephin, day #9. DC Metronidazole. Hemoglobin has drifted down to 7.7, but the patient has been asymptomatic and he denies any hematochezia. Iron studies are pending as is Vitamin B12. He continues on Eliquis for A. fib. Platelets are increased at 425, monitor for now. Sodium is low but stable at 130. Renal function is stable. Weight has gone down by 3 kg despite having a fluid positive balance. He remains on 4 L of oxygen. Will discuss diuretic management with Dr. Angelo. Consider reviewing with Dr. Bush, manager inventory control for Dr. Amirani, prior to DC. 06/13/18 Appreciated surgical consultation by Dr Gibson We discussed diet- He may have a soft diet today with 1/2 portions only. Nursing staff notified. Will change to clear liquids with no diet tonight at [place], followed by NPO tomorrow night 06/16 at [place]. Eliquis remains on hold Planned to upper and lower scope 06/16. Continue to follow blood counts carefully- Hgb 7.4. GI panel was negative yesterday. Stool for occult blood is positive Bumex 1 mg BID for ongoing diuresing Antibiotics completed Case discussed with attending, Dr Angelo 06/14/2018 Appreciated surgical consultation by Dr Gibson We discussed diet- He may have a soft diet today with 1/2 portions only. Nursing staff notified. Will change to clear liquids with no diet tonight at [place], followed by NPO tomorrow night 06/16 at mi. Eliquis remains on hold Planned to upper and lower scope 06/16. Continue to follow blood counts carefully- Hgb 7.4. GI panel was negative yesterday. Stool for occult blood is positive Bumex 1 mg BID for ongoing diuresing Antibiotics completed 06/15/2018 The patient was found to have a white count of 28 today from 19 yesterday. Bands are 4. He is afebrile. He feels well. Lactate was obtained and was mildly elevated at 2.5. Pro-calcitonin was normal. Chest x-ray showed improved aeration of the right lower lobe. UA was negative. He had a recent GI panel for diarrhea which was negative. He was diuresed significantly yesterday and may just be a little intravascularly dry. We'll repeat lactate and draw blood cultures this afternoon. Hold oral Bumex today. Can decide tomorrow whether or not it should be resumed The patient was previously on Rocephin and Flagyl for colitis but these were discontinued on 06/12/2018. Eliquis is on hold for heme positive stools. Plan for EGD and colonoscopy tomorrow with Dr. Gibson. Regarding A. fib with RVR, cardiology was notified. Rate has slowed down his usual morning diltiazem and carvedilol Patient had been on steroids for acute respiratory failure, prednisone will be discontinued after this morning's dose. At 3:35 PM-repeat lactate after 500 cc bolus was 4.2. I did reexamine the patient and he states he feels just fine. He is finishing up his bowel prep in preparation for EGD and colonoscopy tomorrow. Recheck vitals now show a picture of 98, heart rate 95, respirations 16, blood pressure 141/72, O2 sat 97% on 3 L. He denies feeling feverish or chilled. He denies any sinus congestion, sore throat or cough. He denies increased shortness of breath. He denies any abdominal pain or cramping. He has not had a bowel movement yet with the bowel prep. He denies any dysuria. His urinalysis was was negative for signs of infection. Chest x-ray was improving. With increase in lactate and elevated white count, blood cultures were drawn and will start Rocephin 1 g IV daily empirically. Will give 1 L of fluid over 2 hours. He does not appear to be in septic shock. He appears about the best that I've seen him during this hospital course. I am not giving the 30 mL's per kilogram of IV fluid because he does not appear septic and he already suffers from mild fluid overload. Recheck basic metabolic and lactate at 6:30 this evening. Vitals every hour for now. The patient will let us know if he feel poorly.
--- NOTE | 2018-06-16 16:26 | Operative Note ---
DATE OF SERVICE 06/16/2018 SURGEON Jerardo Gibson MD PREOPERATIVE DIAGNOSIS Progressive anemia, history for heme-positive stool, history for sepsis, history for abnormal CT scan. POSTOPERATIVE DIAGNOSIS Progressive anemia, history for heme-positive stool, history for sepsis, history for abnormal CT scan, endoscopic evidence for ischemic colitis, sigmoid diverticulosis. PROCEDURE Esophagogastroduodenoscopy, colonoscopy with biopsies from splenic flexure region via cold biopsy technique. ANESTHESIA TIVA BRIEF HISTORY/INDICATIONS Mr. House is a 73-year-old gentleman who was admitted on June 04 to our facility following a syncopal event. The patient was found to be septic and was admitted to our institution for further care. He did undergo a CT scan that revealed some inflammatory changes surrounding the splenic flexure region. Since his admission he has developed progressive anemia. He is on anticoagulation as a result of his history for atrial fibrillation. It was recommended that he undergo an EGD and colonoscopy for further evaluation. For completeness, please refer to notes included in the patient's chart. FINDINGS Upon upper endoscopy, the esophagus, stomach and duodenum were found to be within normal limits. No acute pathology was noted. Upon colonoscopy, the patient was found to have a moderate number of diverticula within the sigmoid colon region. There was no evidence for angiodysplastic lesions, polyps or ladi malignancies. The patient was found to have marked erythema with several ulcerations being noted within the splenic flexure region consistent with ischemic colitis. Biopsies were obtained from this area for permanent pathology. DESCRIPTION OF PROCEDURE After informed consent was obtained, patient was brought to the endoscopy suite and placed on the table in left lateral decubitus position. The patient subsequently underwent total intravenous anesthesia by the nurse ventilated rib fitter per my request. Formal time-out was then completed. Next an Olympus gastroscope was inserted in the oral hypopharynx and subsequently the esophagus under direct visualization. Gastroscope was advanced through the esophagus, stomach, pylorus, duodenal bulb, to the second portion of the duodenum. Scope was then slowly withdrawn. First and second portions of the duodenum were within normal limits. No evidence of duodenitis or ulcerations were noted. Scope was withdrawn back to the prepyloric region and antrum. Again no mucosal abnormalities were noted. No evidence for old blood upon the surface of the stomach or duodenum. A J-maneuver was then performed. Cardia and fundus were within normal limits. Endoscopically there was no evidence for hiatal hernia. Scope was allowed to straighten and slowly withdrawn. Scope was withdrawn back to the level of the diaphragm. Squamocolumnar junction was located just above the level of the diaphragm. There was no evidence for acute esophagitis. There was no edema nor ulcerations of the mucosa. Squamocolumnar junction was fairly well demarcated. Scope was then slowly withdrawn. The remaining esophageal mucosa was found to be within normal limits. Next attention was directed towards performing the colonoscopy. First a digital rectal examination was performed. Normal sphincter tone. No rectal masses were appreciated. An Olympus colonoscope was inserted in the anus and advanced through the lumen of the colon under direct visualization at all times until the cecum was ascertained. Triangulation of the teniae coli, ileocecal valve and appendiceal lumen were all visualized. Scope was then slowly withdrawn again maintaining visualization of the lumen at all times. The entire colon was without evidence for angiodysplastic lesions, polyps nor ladi malignancies. The patient was found to have few scattered diverticula within the sigmoid colon region. As the scope was withdrawn, one could see an area of marked colitis that had been noted as the scope was being advanced. This was at about 50-60 cm from the anal verge at the splenic flexure region. The mucosa at this area was quite edematous and erythematous in nature. There were numerous ulcerations present at this location with a white exudate-like material covering the ulcerations. Photos were obtained for documentation purposes. Multiple biopsies were obtained from this area of suspected ischemic colitis via cold biopsy technique. Colonoscope was then continued to be withdrawn until it was brought forth back to the rectal vault. J-maneuver was then performed. No worrisome perianal pathology was noted. Scope was allowed to straighten and withdrawn through the anal verge. The patient tolerated the procedure without difficulty and was sent back to the preop area in stable condition. SPEEDY
[2018-06-16] MEDS ORDERED: FALL RISK - PHARMACY CONSULT MC ONE (16:48)
[2018-06-16] MEDS: INSULIN ASPART 100unit/ml INJECTION SQ PRN (17:01)
[2018-06-16] MEDS: ROSUVASTATIN 20 MG TABLET PO SCH (21:50)
[2018-06-17] MEDS: INSULIN ASPART 100unit/ml INJECTION SQ PRN ×4 (00:04→21:24)
[2018-06-17] MEDS: PIPERACILLIN/TAZOBACTAM 3.375 GM in NS 100 ML IV SCH ×4 (03:03→21:25)
[2018-06-17] MEDS: ALBUTEROL/IPRATROPIUM 2.5mg-0.5mg/3ml NEB AEROSOL SCH ×4 (07:18→19:29)
[2018-06-17] MEDS: BUDESONIDE INH.SOLN 0.5mg/2ml NEB AEROSOL SCH ×2 (10:44→19:28)
[2018-06-17] MEDS: APIXABAN 5 MG TABLET PO SCH ×2 (11:00→20:48)
[2018-06-17] MEDS: CALCIUM 500 + VIT D 200 TABLET PO SCH (11:00)
[2018-06-17] MEDS: BUMETANIDE 1 MG TABLET PO SCH ×2 (11:00→14:06)
[2018-06-17] MEDS: DiltiaZEM CD 360 MG CAPSULE PO SCH (11:00)
[2018-06-17] MEDS: PANTOPRAZOLE 40 MG INJECTION IVP SCH ×2 (11:00→20:47)
[2018-06-17] MEDS: CARVEDILOL 3.125 MG TABLET PO SCH ×2 (11:00→17:38)
[2018-06-17] MEDS ORDERED: DiltiaZEM 25 MG/5 ML INJECTION IVP ONE (11:36)
[2018-06-17] MEDS ORDERED: NS FLUSH BAG 500ml IV PRN (11:56)
[2018-06-17] MEDS ORDERED: FUROSEMIDE 20 MG/2 ML INJECTION IVP ONE (12:02)
--- NOTE | 2018-06-17 12:07 | Progress Note ---
- Date 06/17/18 Subjective: Patient resting in bed at the time of interview. Nursing staff informed hospitalist about tachycardia, elevated heart rate up to 135 with atrial fibrillation noted. EKG shows A. fib with RVR. Patient does not report any chest pain, no palpitations, no shortness of breath, no dizziness, no blurred vision. On review of home medication, patient on oral Cardizem 360 mg and 240 mg dose along with oral nifedipine 90 mg. Patient cannot recollect his home medications, reports he gets it from the [place] [facility]. Patient follows up with land leasing examiner, Dr. Kinney. Case discussed with Dr. Nirmal Metcalf. Concern for A. fib with RVR's secondary to chronic anemia and recommendation for transfusion of 1 unit of PRBC. Cardiology recommendations discussed with patient, patient agreeable. Objective Vital signs: Temperature 97.8 F 06/17/18 03:57 Pulse Rate 135 H 06/17/18 10:50 Respiratory Rate 14 06/17/18 10:44 Blood Pressure 166/72 H 06/17/18 07:28 Pulse Oximetry 99 06/17/18 10:44 Height/Weight/BMI: Height 1.7 m Weight 86.9 kg Body Mass Index 29.3 - Additional findings Additional findings: General: Alert, awake, oriented to self and place. Not in acute distress. Head: Pupils equal, round, reactive to light and accommodation. Extraocular movements intact. Neck: No elevation in JVP. No pharyngeal erythema noted. Chest: The patient does not use accessory muscles for breathing. Lungs: Breath sounds audible on auscultation bilateral lung stroud. No wheezing , no rhonchi, no crepitations, no crackles. No pleural rub. CVS: S1, S2 heard on auscultation. Irregularly irregular heart sounds, tachycardic. No murmur, no S3/S4 gallops. Abdomen: Soft, nontender, obese. Bowel sounds appreciated on auscultation. : No flank tenderness, no suprapubic distention or tenderness. Skin: No rashes, no induration, no erythema. Capillary refill less than 4 seconds. Extremities: 2+ pitting pedal edema bilateral lower extremities. No calf tenderness bilaterally. Palpable dorsalis pedis and posterior tibial pulses bilateral lower extremities. MOVIE OPERATOR: Strength 5/5 bilateral upper and lower extremities. Sensations intact. No slurred speech, no facial droop. No discernible focal neurological deficits. Results - Labs CBC & Chem 7: 06/17/18 04:35 06/17/18 04:35 Microbiology Results: Microbiology 06/15/18 14:38 Peripheral/Iv Start Blood Culture - Preliminary No Growth After 1 Day 06/15/18 14:38 Peripheral/Iv Start Gram Stain - Final 06/15/18 14:38 Peripheral/Iv Start Blood Culture - Preliminary Gram Positive Anastacio 06/04/18 14:30 Peripheral/Iv Start Blood Culture - Final No Growth After 5 Days 06/04/18 14:30 Peripheral/Iv Start Blood Culture - Final No Growth After 5 Days Assessment and Plan (1) Atrial fibrillation with RVR Current visit: No Status: Chronic (2) Atherosclerotic heart disease of [place] coronary artery without angina pectoris Current visit: No Status: Chronic (3) Sepsis Current visit: Yes Status: Acute (4) LUIS (acute kidney injury) Current visit: Yes Status: Acute (5) Generalized weakness Current visit: Yes Status: Acute (6) Congestive heart failure Problem details: EF 50% with echo in January 2018 Current visit: Yes Status: Chronic (7) Tobacco abuse Current visit: Yes Status: Chronic Assessment and Plan: Assessment Sepsis - present on admission with WBC, tachy, low BP, high lactate, LUIS - likely GI source, resolved Leukocytosis on 06/15/2018 without significant change in left shift - continue IV Zosyn. Colitis seen on CT- ischemic versus infectious, likely infectious given clinical scenario Heme positive stoolstatus post EGD/colonoscopy performed by Dr. Gibson on Iron Deficiency anemia -hemoglobin 7.7 today. Patient received IV iron Hyponatremia, not POA Atrial fibrillation with RVR Thrombocytosis, not POA V-tach, [id number] beat run on 06/04/2018 -no recurrence on telemetry Elevated creatinine-resolved CAD with an EF of 50%, mild mitral regurgitation, mild aortic insufficiency and mild tricuspid regurgitation Hypertension Dyslipidemia CHF - chronic diastolic heart failure -EF 50%. Tentative plan to restart Bumex from tomorrow morning. Chronic respiratory failure - 3L at home Plan WBC count improved from 27,400 yesterday to 15,400 today. Lactic acid improved to 1.2 yesterday. Continue IV Zosyn. Status post EGD, colonoscopy on 06/16/2018; colonoscopy showed evidence of ischemic colitis likely secondary to sepsis. Clinically, patient does not have any abdominal pain or tenderness to palpation and tolerating oral intake. Evidence of fluid overload, although patient has lost 1.1 KG when compared to yesterday. Continue Bumex 1 mg by mouth twice a day. Will monitor intake and output, daily weights. Patient restarted on home medications eliquis 5 mg twice a day. Hemoglobin 7.7, has been ranging from 7. 48 during the course of hospital stay. Case discussed with Dr. Nirmal Metcalf and recommendation transfuse 1 unit of PRBC. We will provide 20 mg IV Lasix posttransfusion. Will monitor H&H. Regarding A. fib with RVR, cardiology was notified. Recommendation to continue current dose of oral diltiazem and carvedilol. Serum potassium 3.3, will provide oral potassium chloride 40 mEq 1. DVT Prophylaxis: SCD's, Eliquis GI Prophylaxis: Protonix Resuscitation Status: Full Code - Time spent with patient Time with patient PN: 35 minutes - Physician Narrative Narrative: Date: 06/17/18 Time: 1204 Hospital Course Summary Disclaimer: The visit summary below is not to be considered part of the above Progress Note. Hospital Course: 01/2018- med list from discharge on cardiology service New Apixaban [Eliquis] 5 mg PO BID #60 tab Aspirin *EC* [Ecotrin] 81 mg PO DAILY #30 tab DiltiaZEM CD [Cardizem CD 360 MG] 360 mg PO DAILY #30 cap Rosuvastatin [Crestor] 20 mg PO HS #30 tab DiltiaZEM CD [Cardizem CD 240 MG] 240 mg PO DAILY #30 cap Continue Calcium Carbonate/Vitamin D3 [Calcium 500-Vit D3 200 Tablet] 2 each PO DAILY Ranitidine [Zantac] 1 tab PO DAILY NIFEdipine [Nifedipine ER] 90 mg PO DAILY Loratadine 10 mg PO DAILY PRN PRN Reason: Allergy Symptoms Lisinopril [Prinivil] 40 mg PO DAILY Metformin HCl 1,000 mg PO WS Ferrous Sulfate 325 mg PO DAILY Carvedilol [Coreg] 1 tab PO BIDWM Bumetanide Tab [Bumex 1 mg Tab] 1 mg PO BID Metolazone [Zaroxolyn] 2.5 mg PO DAILY Aspirin 1 tab PO DAILY Cyclobenzaprine [Flexeril] 10 mg PO HS Potassium Chloride [K-Tab ER] 20 meq PO DAILY 06/04/18 Admit patient to ICU due to unstable vital signs just prior to transfer. Repeat basic labs,troponin, and lactate to find trend. Blood cultures pending in [place] [place] Abdomen/pelvis due to sepsis, LUQ pain, elevated lactate. Get occult stool, stool for c diff, and GI PCR panel of stool. Monitor h/h. Start Protonix IV BID in the event of an UGIB and avoid blood thinners for now. Uncertain if patient is taking the Eliquis that was prescribed to him in January, as it's not in his medication bag - would hold acutely anyway. Give IVF and monitor UOP and creatinine in morning. UA was non-infectious in [place]. Check CPK. Continue diltiazem for rate control - give 60mg oral q6hrs as we monitor BP closely. Check TSH Hold nifedipine, lisinopril, Coreg, Bumex, and metolazone for now. Need to reconcile home meds with pharmacy as patient's medication bag doesn't match the records. 06/05/18 WBC trended up overnight, but afebrile. Blood cultures pending Lactate trended down - was 4.[address] [place] [address] Abdomen/pelvis shows colitis - likely infectious given clinical scenario. Occult stool positive - likely due to colitis - will continue BID PPI however for now and hold Eliquis. Restart pending clinical course. On Zosyn and Flagyl - change to Rocephin and Flagyl today. C diff negative. Need to ensure patient's med list is correct tomorrow with [place] pharmacy as his list doesn't match what's in his bag of medications. Most notably Eliquis. Continue diltiazem for rate control - change back to once daily dosing in the morning. Restart nifedipine and Coreg today. D/C IVF. Continue to hold Bumex, lisinopril, and metolazone for now - likely need to restart soon. Transfer to floor, up out of bed. 06/06/18 WBC improved to 15.8. Cont metronidazole/Rocephin. Hgb down to 8.2 but stool frequency is decreasing. Cont to hold ASA/Eliquis. Cont PPI. Renal function stable - cr 1.0. Weight is climbing - resume Bumex but will cont to hold metolazone and lisinopril. Resume Coreg. Continue Cardizem and nifedipine Increase activity - consult pt/ot 06/07/18 WBC improved to 15.1. Cont metronidazole/Rocephin. Hgb 8.0 - Cont to hold ASA/Eliquis. Cont PPI. Increased abdominal distention, hypoactive bowel sounds - concerned for ileus. Start bowel regimen. Na down to 135; renal functions with increase, BUN 23 and creatinine 1.4; weight continues to trend up. 86.5 --> 90.7 kg. Requiring 5L of oxygen to maintain saturations. Bumex resumed yesterday; metolazone and lisinopril remain on hold. Yesterday's CXR personally reviewed - stable but clinically concerned about failure. Will repeat CXR in am. 06/08/18 WBC stable at 15. Blood cultures remains negative. Cont metronidazole/Rocephin. Abd Xray revels distension. Asked nursing staff to give Dulcolax sup. Last BM 06/05. Increased oxygen demands up to 6 liters. Noted weight is up a proximal 27 pounds since admission. Resumed Bumex 1 milligram twice a day for diuresing. NA continues to trend down. Noted PO intake yesterday over 2200ML. Will add oral fluid restriction of 1800ML/24hrs. 06/09/18 Cont metronidazole/Rocephin; WBC trending down; 13.7. O2 demands slightly improved from yest but noted increased peripheral edema along with fluid pos status; currently on home dose Bumex 1 mg BID but Hctz has not been resumed. With hyponatremia, would prefer to use loop diuretic -- will give an extra 1 mg of Bumex tomorrow am for diuresis. Will also give KDur 20 mEq x1 in the am. Continue fluid restriction. Hgb stable at 8.3 -- consider resuming at least ASA; consider restarting Eliquis soon. Resume cardizem 360 mg; pt has been going in/out of a-fib. 06/10/18 Obtain venous Doppler of right upper ext to rule out DVT - Negative. Monitor erythema to right arm. Cont Rocephin. Discontinued Flagyl. Continues to have edema and weight continues to trend up. Will change Bumex to 1 mg IV- Monitor output. Will resume home Eliquis as recommended by cardiology team. Monitor for bleeding. Hgb stable at 8.3 Monitor BP- Continue on Cardizem 360mg daily. He does not need Nifedipine as long as BP is controlled. Initiated Solu-Medrol to help breathing - 125mg x1, then 62.5mg q 6 hours. 06/11/18 Continue to monitor erythema of the right antecubital as well as distal edema. Venous Doppler negative for DVT Into need is on Bumex twice a day Aird weight continues to trend up. Check chest x-ray today. Was started on Solu-Medrol to help with breathing last evening Continues on IV Rocephin daily Monitor BP- Continue on Cardizem 360mg daily. He does not need Nifedipine as long as BP is controlled. Hemoglobin remains stable, monitor for evidence of bleeding. Given resume of home Eliquis 06/12/18 White count has increased to 19,000, however, the patient remains on prednisone 30 mg daily. Blood cultures are negative after 5 days. Continue on Rocephin, day #9. DC Metronidazole. Hemoglobin has drifted down to 7.7, but the patient has been asymptomatic and he denies any hematochezia. Iron studies are pending as is Vitamin B12. He continues on Eliquis for A. fib. Platelets are increased at 425, monitor for now. Sodium is low but stable at 130. Renal function is stable. Weight has gone down by 3 kg despite having a fluid positive balance. He remains on 4 L of oxygen. Will discuss diuretic management with Dr. Angelo. Consider reviewing with Dr. Bush, education instructor for Dr. Grider, prior to DC. 06/13/18 Appreciated surgical consultation by Dr Gibson We discussed diet- He may have a soft diet today with 1/2 portions only. Nursing staff notified. Will change to clear liquids with no diet tonight at [place], followed by NPO tomorrow night 06/16 at [facility]. Eliquis remains on hold Planned to upper and lower scope 06/16. Continue to follow blood counts carefully- Hgb 7.4. GI panel was negative yesterday. Stool for occult blood is positive Bumex 1 mg BID for ongoing diuresing Antibiotics completed Case discussed with attending, Dr Angelo 06/14/2018 Appreciated surgical consultation by Dr Gibson We discussed diet- He may have a soft diet today with 1/2 portions only. Nursing staff notified. Will change to clear liquids with no diet tonight at [place], followed by NPO tomorrow night 06/16 at [facility]. Eliquis remains on hold Planned to upper and lower scope 06/16. Continue to follow blood counts carefully- Hgb 7.4. GI panel was negative yesterday. Stool for occult blood is positive Bumex 1 mg BID for ongoing diuresing Antibiotics completed 06/15/2018 The patient was found to have a white count of 28 today from yesterday. Bands are 4. He is afebrile. He feels well. Lactate was obtained and was mildly elevated at 2.5. Pro-calcitonin was normal. Chest x-ray showed improved aeration of the right lower lobe. UA was negative. He had a recent GI panel for diarrhea which was negative. He was diuresed significantly yesterday and may just be a little intravascularly dry. We'll repeat lactate and draw blood cultures this afternoon. Hold oral Bumex today. Can decide tomorrow whether or not it should be resumed The patient was previously on Rocephin and Flagyl for colitis but these were discontinued on 06/12/2018. Eliquis is on hold for heme positive stools. Plan for EGD and colonoscopy tomorrow with Dr. Gibson. Regarding A. fib with RVR, cardiology was notified. Rate has slowed down his usual morning diltiazem and carvedilol Patient had been on steroids for acute respiratory failure, prednisone will be discontinued after this morning's dose. At 3:35 PM-repeat lactate after 500 cc bolus was 4.2. I did reexamine the patient and he states he feels just fine. He is finishing up his bowel prep in preparation for EGD and colonoscopy tomorrow. Recheck vitals now show a picture of 98, heart rate 95, respirations 16, blood pressure 141/72, O2 sat 97% on 3 L. He denies feeling feverish or chilled. He denies any sinus congestion, sore throat or cough. He denies increased shortness of breath. He denies any abdominal pain or cramping. He has not had a bowel movement yet with the bowel prep. He denies any dysuria. His urinalysis was was negative for signs of infection. Chest x-ray was improving. With increase in lactate and elevated white count, blood cultures were drawn and will start Rocephin 1 g IV daily empirically. Will give 1 L of fluid over 2 hours. He does not appear to be in septic shock. He appears about the best that I've seen him during this hospital course. I am not giving the 30 mL's per kilogram of IV fluid because he does not appear septic and he already suffers from mild fluid overload. Recheck basic metabolic and lactate at 6:30 this evening. Vitals every hour for now. The patient will let us know if he feel poorly. 06/16/2018 WBC count remains elevated at 27,400. Lactic acid which was 4.1 yesterday improved to 1.2 today. DC IV Rocephin. Patient on IV Zosyn. Status post EGD, colonoscopy on 06/16/2018; colonoscopy showed evidence of ischemic colitis likely secondary to sepsis. Clinically, patient does not have any abdominal pain or tenderness to palpation and tolerating oral intake. Plan to restart patient on Bumex 1 mg by mouth twice a day from tomorrow. Will monitor intake and output, daily weights. Pro-calcitonin was normal. Chest x-ray showed improved aeration of the right lower lobe. UA was negative. He had a recent GI panel 06/13/2018 for diarrhea which was negative. The patient was previously on Rocephin and Flagyl for colitis but these were discontinued on 06/12/2018. Eliquis is on hold for heme positive stools. Case discussed with Dr. Gibson, plan to restart home medication eliquis from tomorrow provided H&H stable. Regarding A. fib with RVR, cardiology was notified. Rate has slowed down his usual morning diltiazem and carvedilol
--- NOTE | 2018-06-17 12:56 | Cardiology Progress Note ---
Subjective Principal diagnosis: A Fib Interval history: Barry is seen in follow up for A Fib. Rate is variable from 90s-130s. Patient is completely asymptomatic and denies chest pain, palpitations, dyspnea or other complaints Exam Vital signs: Temperature 97.8 F 06/17/18 03:57 Pulse Rate 135 H 06/17/18 10:50 Respiratory Rate 14 06/17/18 10:44 Blood Pressure 166/72 H 06/17/18 07:28 Pulse Oximetry 99 06/17/18 10:44 Inpatient Medications: Generic Name Dose Route Start Last Admin Trade Name Freq PRN Reason Stop Dose Admin Acetaminophen 650 mg 06/04/18 16:09 Tylenol PO Q5H PRN Discomfort Hydrocodone Bitart/Acetaminophen 1 tab 06/04/18 16:09 Westhoff 7.5/325 PO Q6H PRN Pain Albuterol/Ipratropium 3 ml 06/04/18 17:09 06/07/18 23:16 Duoneb AEROSOL 3 ml RTQID PRN Administration Albuterol/Ipratropium 3 ml 06/08/18 19:00 06/17/18 10:44 Duoneb AEROSOL 3 ml RTQID VALE Administration Apixaban 5 mg 06/10/18 21:00 06/17/18 11:00 Eliquis PO 5 mg BID VALE Administration Bisacodyl 10 mg 06/07/18 11:34 06/08/18 14:15 Dulcolax RECTALLY 10 mg DAILY PRN Administration Constipation Budesonide 0.5 mg 06/08/18 19:00 06/17/18 10:44 Pulmicort Inhalation AEROSOL 0.5 mg RTBID VALE Administration Bumetanide 1 mg 06/14/18 09:00 06/17/18 11:00 Bumex 1 Mg Tab PO 1 mg [id number] VALE Administration Calcium/Vitamin D 2 tab 06/05/18 09:00 06/17/18 11:00 Os Chris-D 500 PO 2 tab DAILY VALE Administration Carvedilol 3.125 mg 06/05/18 08:28 06/17/18 11:00 Coreg PO 3.125 mg BIDWM VALE Administration Dextrose 20 ml 06/11/18 07:43 D50%W IVP PRN PRN Hypoglycemia Diltiazem HCl 360 mg 06/10/18 09:00 06/17/18 11:00 Cardizem Cd 360 Mg PO 360 mg DAILY VLAE Administration Glucose 37.5 gm 06/11/18 07:43 Glutose 15 PO PRN PRN Hypoglycemia Ferumoxytol 510 mg/ Sodium 117 mls @ 234 mls/hr 06/13/18 13:15 06/13/18 15:45 Chloride IV 06/20/18 13:44 Infused Q7D VALE Infusion Lactated Ringer's 1,000 mls @ 50 mls/hr 06/17/18 10:42 06/16/18 14:19 Lactated Ringers IV Infused .Q20H VALE Infusion Piperacillin Sod/Tazobactam 100 mls @ 200 mls/hr 06/16/18 15:00 06/17/18 11: 01 Sod 3.375 gm/ Sodium Chloride IV 200 mls/hr Q6HR VALE Administration Insulin Aspart 2 - 8 unit 06/13/18 16:29 06/17/18 06:45 Novolog SQ 2 unit SS PRN Administration Hyperglycemia Protocol Loratadine 10 mg 06/04/18 17:09 06/13/18 10:07 Claritin PO 10 mg DAILY PRN Administration Allergy symptoms Morphine Sulfate 2 mg 06/04/18 16:09 Morphine Sulfate Inj IVP Q2H PRN Pain Nicotine 14 mg 06/04/18 16:09 Nicoderm TD DAILY PRN Nicotine 1 removal 06/05/18 09:00 Nicotine Patch Removal TD DAILY PRN Ondansetron HCl 4 mg 06/04/18 16:09 Zofran IVP Q6H PRN Nausea Pantoprazole Sodium 40 mg 06/13/18 21:00 06/17/18 11:00 Protonix Iv IVP 40 mg BID VALE Administration Rosuvastatin Calcium 20 mg 06/04/18 21:00 06/16/18 21:50 Crestor PO 20 mg HS VALE Administration Sodium Chloride 10 - 80 ml 06/10/18 16:10 06/15/18 20:52 Iv Flush IVF 10 ml PRN PRN Administration Flushing Sodium Chloride 500 ml 06/13/18 10:21 06/13/18 15:03 Normal Saline IV 500 ml PRN PRN Administration Sodium Chloride 500 ml 06/17/18 11:56 Normal Saline IV PRN PRN Discontinued Medications Generic Name Dose Route Start Last Admin Trade Name Freq PRN Reason Stop Dose Admin Bisacodyl 20 mg 06/15/18 10:00 06/15/18 09:36 Dulcolax PO 06/15/18 10:01 20 mg O ONE Administration Bumetanide 1 mg 06/06/18 21:00 06/10/18 08:33 Bumex 1 Mg Tab PO 1 mg BID VALE Administration Bumetanide 1 mg 06/10/18 09:00 06/10/18 08:33 Bumex 1 Mg Tab PO 06/10/18 09:01 1 mg DAILY ONE Administration Bumetanide 1 mg 06/11/18 07:00 06/13/18 10:54 Bumex 1 Mg/4 Ml Inj. IVP 1 mg 0700,1700 VALE Administration Bumetanide 1 mg 06/15/18 09:14 Bumex 1 Mg/4 Ml Inj. IVP 0914 VALE Diltiazem HCl 60 mg 06/04/18 21:00 06/09/18 20:41 Cardizem Ir 60 Mg Tab PO 60 mg ACHS VALE Administration Diltiazem HCl 20 mg 06/17/18 11:36 06/17/18 12:14 Cardizem 25 Mg Inj IVP 06/17/18 11:37 20 mg O ONE Administration Furosemide 20 mg 06/05/18 18:51 06/05/18 18:59 Lasix 20 Mg/2 Ml IVP 06/05/18 18:52 Not Given ONCE ONE Furosemide 20 mg 06/05/18 20:00 06/05/18 19:33 Lasix 20 Mg/2 Ml IVP 06/05/18 20:01 20 mg ONCE ONE Administration Furosemide 20 mg 06/17/18 12:02 Lasix 20 Mg/2 Ml IVP 06/17/18 12:03 ONCE ONE Lactated Ringer's 1,000 mls @ 100 mls/hr 06/04/18 16:15 06/05/18 16:04 Lactated Ringers IV Not Given .Q10H VALE Piperacillin Sod/Tazobactam 100 mls @ 200 mls/hr 06/04/18 17:15 06/05/18 06: 00 Sod 3.375 gm/ Sodium Chloride IV Infused Q6H VALE Infusion Metronidazole/Sodium Chloride 500 mg in 100 mls @ 100 mls/hr 06/04/18 18:45 06/12/18 12:05 Flagyl Iv Premix IV 100 mls/hr Q8H VALE Administration Piperacillin Sod/Tazobactam 100 mls @ 200 mls/hr 06/05/18 11:00 06/05/18 12: 28 Sod 3.375 gm/ Dextrose IV Infused Q6H VALE Infusion Ceftriaxone Sodium 1 g/ Sodium 100 mls @ 200 mls/hr 06/05/18 12:45 06/06/18 13:12 Chloride IV Infused Q24H VALE Infusion Ceftriaxone Sodium 1 g/ 100 mls @ 200 mls/hr 06/07/18 12:45 06/12/18 15:09 Dextrose IV Infused Q24H VALE Infusion Ferumoxytol 510 mg/ Sodium 117 mls @ 234 mls/hr 06/13/18 13:15 Chloride IV 06/13/18 13:44 O ONE Sodium Chloride 500 mls @ 500 mls/hr 06/15/18 12:04 06/15/18 14:07 Normal Saline IV 06/15/18 13:03 Infused .Q1H ONE Infusion Sodium Chloride 1,000 mls @ 500 mls/hr 06/15/18 15:33 06/15/18 18:35 Normal Saline IV 06/15/18 17:32 Infused .Q2H ONE Infusion Ceftriaxone Sodium 1 g/ 100 mls @ 200 mls/hr 06/15/18 15:45 06/15/18 17:33 Dextrose IV Infused Q24H VALE Infusion Piperacillin Sod/Tazobactam 100 mls @ 200 mls/hr 06/16/18 12:51 06/16/18 14: 35 Sod 3.375 gm/ Sodium Chloride IV Not Given Q6H [facility] Insulin Aspart 1 - 5 unit 06/11/18 07:43 06/13/18 15:20 Novolog SQ 4 unit SS PRN Administration Hyperglycemia Protocol Iron Dextran 1 each 06/13/18 10:53 06/13/18 15:03 Pharmacy Consult - Iron 06/13/18 10:54 1 each O ONE Administration Magnesium Hydroxide 30 ml 06/07/18 11:34 06/08/18 14:20 Mom PO 30 ml DAILY PRN Administration Constipation Methylprednisolone Sodium Succinate 125 mg 06/10/18 11:15 06/10/18 11:39 Solu-Medrol IVP 06/10/18 11:16 125 mg ONE TIME ONE Administration Methylprednisolone Sodium Succinate 62.5 mg 06/10/18 15:00 06/11/18 15:42 Solu-Medrol IVP 62.5 mg Q6HR VALE Administration Nifedipine 90 mg 06/05/18 09:00 06/09/18 08:41 Procardia Xl PO 90 mg DAILY VALE Administration Pantoprazole Sodium 40 mg 06/04/18 21:00 06/06/18 08:42 Protonix Iv IVP 40 mg BID VALE Administration Pantoprazole Sodium 40 mg 06/06/18 17:00 06/13/18 06:05 Protonix Tab PO 40 mg ACBID VALE Administration Pharmacy Consult 1 each 06/07/18 16:33 Pharmacy Consult - Fall Risk 06/07/18 16:34 ONE TIME ONE Pharmacy Consult 1 each 06/16/18 16:48 Pharmacy Consult - Fall Risk 06/16/18 16:49 ONE TIME ONE Polyethylene Glycol 17 gm 06/07/18 11:45 06/11/18 09:21 Miralax PO Not Given DAILY VALE Polyethylene Glycol 238 gm 06/15/18 13:00 06/15/18 12:29 Miralax PO 06/15/18 13:01 238 gm O ONE Administration Potassium Chloride 40 meq 06/08/18 08:34 06/08/18 08:41 K-Dur 20 Meq Tablet PO 06/08/18 08:35 40 meq O ONE Administration Potassium Chloride 20 meq 06/10/18 09:00 06/10/18 08:33 K-Dur 20 Meq Tablet PO 06/10/18 09:01 20 meq O ONE Administration Potassium Chloride 40 meq 06/17/18 12:13 K-Dur 20 Meq Tablet PO 06/17/18 12:14 O ONE Prednisone 30 mg 06/12/18 08:00 06/13/18 10:07 Deltasone 10 Mg PO 30 mg WB VALE Administration Prednisone 20 mg 06/14/18 08:00 06/15/18 08:24 Deltasone 20 Mg PO 06/15/18 08:01 20 mg WB VALE Administration Senna/Docusate Sodium 1 tab 06/07/18 11:35 06/11/18 09:20 Senna Plus Tablet PO Not Given BID VALE Sodium Chloride 500 ml 06/09/18 18:18 06/16/18 14:20 Normal Saline IV 500 ml PRN PRN Administration Sodium Chloride 500 ml 06/10/18 16:10 Normal Saline IV PRN PRN - Constitutional no acute distress, well nourished, cooperative - Routine HEENT Exam Head: Present: normocephalic ENT: Present: mucous membranes moist - Routine Neck Exam Absent: JVD, carotid bruit - Routine Chest/Breast/Axilla Exam Chest wall: Absent: tenderness - Routine Respiratory Exam Present: CTA bilaterally. Absent: dyspnea, rales, crackles - Routine Cardiovascular Exam Present: no murmur, tachycardia, irregularly irregular - Routine Abdominal Exam Present: soft, non tender - Routine Extremities Exam Present: no edema - Routine Skin Exam Present: intact, dry, warm - Routine Neurological Exam Present: alert, oriented X3 - Routine Psychiatric Exam Present: normal affect, normal thought process Results 06/17/18 04:35 06/17/18 04:35 Cardiac Enzymes 06/17/18 Range/Units 04:35 AST 27 (17-59) U/L CBC 06/17/18 Range/Units 04:35 WBC 15.4 H D (4.5-11.0) T/MM3 RBC 3.27 L (4.50-5.90) M/MM3 Hgb 7.7 L (13.5-17.5) GM/DL Hct 26.2 L (41-53) % Plt Count 421 H (130-400) T/MM3 Neut # (Auto) Not performed Lymph # (Auto) Not performed Mcpherson # (Auto) Not performed Eos # (Auto) Not performed Baso # (Auto) Not performed Comprehensive Metabolic Panel 06/17/18 Range/Units 04:35 Sodium 138 (136-146) MEQ/L Potassium 3.3 L (3.6-5) MEQ/L Chloride 103 (98-107) MEQ/L Carbon Dioxide 27 (22-30) MEQ/L BUN 7.0 L (9-20) MG/DL Creatinine 0.8 (0.8-1.5) mg/dL Glucose 171 H (75-110) MG/DL Calcium 7.6 L (8.4-10.2) MG/DL AST 27 (17-59) U/L ALT 18 (1-50) U/L Alkaline Phosphatase 78 (38-126) U/L Total Protein 5.6 L (6.3-8.2) g/dL Albumin 3.0 L (3.5-5.0) g/dL Intake and Output 06/16/18 06/17/18 06/17/18 22:59 06:59 14:59 Intake Total 410 / 410 875 / 875 400 / 400 Output Total 300 / 300 425 / 425 200 / 200 Balance 110 / 110 450 / 450 200 / 200 Intake: IV 100 / 100 100 / 100 Piperacillin/Tazobactam 3.375 100 / 100 100 / 100 gm In Ns 100 ml @ 200 mls/hr IV Q6HR [facility] Rx#:[id number] Oral 310 / 310 775 / 775 400 / 400 Output: Urine 300 / 300 425 / 425 200 / 200 Other: Urine Appearance Clear Clear Clear Cloudy Urine Color Bright Yellow Pale Pale Yellow Yellow Urine Odor Normal Normal Stool Characteristics Normal for Patient Stool Color Brown Stool Consistency Soft Size of Bowel Movement Small # Voids 1 # Bowel Movements 1 Assessment and Plan - Assessment and Plan (1) GI bleed Current visit: Yes Status: Acute (2) Generalized weakness Current visit: Yes Status: Acute (3) NSVT (nonsustained ventricular tachycardia) Current visit: Yes Status: Acute (4) Paroxysmal atrial fibrillation Current visit: Yes Status: Chronic (5) Essential (primary) hypertension Current visit: No Status: Chronic (6) Mixed hyperlipidemia Current visit: No Status: Chronic (7) Atherosclerotic heart disease of [place] coronary artery without angina pectoris Current visit: No Status: Chronic (8) Type 2 diabetes mellitus without complications Current visit: No Status: Chronic - Assessment and Plan 06/13/18 GI bleed Current visit: Yes Status: Acute - Hgb 7.2 today - Hold Eliquis - May have endoscopy as needed, procedure carries low cardiac risk. Generalized weakness Current visit: Yes Status: Acute NSVT (nonsustained ventricular tachycardia) Current visit: Yes Status: Acute -6 beat run on 06/04/2018 -no recurrence on telemetry - Continue to monitor Paroxysmal atrial fibrillation Current visit: Yes Status: Chronic - Cardizem 360mg daily for rate control - Hold Eliquis due to GI bleed Essential (primary) hypertension Current visit: No Status: Chronic - On Coreg, diltiazem and Bumex po - off of hydrochlorothiazide, lisinopril, nifedipine. Mixed hyperlipidemia Current visit: No Status: Chronic - Takes Rosuvastatin Atherosclerotic heart disease of [place] coronary artery without angina pectoris Current visit: No Status: Chronic - [facility] 01/2018: EF 65%, LAD 50%, RCA 40%, medical management - Continue BB, Statin, holding Aspirin due to GI Bleed Type 2 diabetes mellitus without complications Current visit: No Status: Chronic - per attending Thank you for allowing us to participate in the care of this patient. 06/17/18 Variable heart rate, likely due to anemia, patient is asymptomatic - Transfuse per hospitalist, mild CAD, goal HGB 8-9 - Continue current Cardizem 360mg, and Coreg 3.125 - Continue to monitor telemetry I saw the patient independent of Dr. Bush, however we discussed findings and agree on plan of care Hospital Course Summary Disclaimer: The visit summary below is not to be considered part of the above Progress Note. Hospital Course: 01/2018- med list from discharge on cardiology service New Apixaban [Eliquis] 5 mg PO BID #60 tab Aspirin *EC* [Ecotrin] 81 mg PO DAILY #30 tab DiltiaZEM CD [Cardizem CD 360 MG] 360 mg PO DAILY #30 cap Rosuvastatin [Crestor] 20 mg PO HS #30 tab DiltiaZEM CD [Cardizem CD 240 MG] 240 mg PO DAILY #30 cap Continue Calcium Carbonate/Vitamin D3 [Calcium 500-Vit D3 200 Tablet] 2 each PO DAILY Ranitidine [Zantac] 1 tab PO DAILY NIFEdipine [Nifedipine ER] 90 mg PO DAILY Loratadine 10 mg PO DAILY PRN PRN Reason: Allergy Symptoms Lisinopril [Prinivil] 40 mg PO DAILY Metformin HCl 1,000 mg PO WS Ferrous Sulfate 325 mg PO DAILY Carvedilol [Coreg] 1 tab PO BIDWM Bumetanide Tab [Bumex 1 mg Tab] 1 mg PO BID Metolazone [Zaroxolyn] 2.5 mg PO DAILY Aspirin 1 tab PO DAILY Cyclobenzaprine [Flexeril] 10 mg PO HS Potassium Chloride [K-Tab ER] 20 meq PO DAILY 06/04/18 Admit patient to ICU due to unstable vital signs just prior to transfer. Repeat basic labs,troponin, and lactate to find trend. Blood cultures pending in [place] [place] Abdomen/pelvis due to sepsis, LUQ pain, elevated lactate. Get occult stool, stool for c diff, and GI PCR panel of stool. Monitor h/h. Start Protonix IV BID in the event of an UGIB and avoid blood thinners for now. Uncertain if patient is taking the Eliquis that was prescribed to him in January, as it's not in his medication bag - would hold acutely anyway. Give IVF and monitor UOP and creatinine in morning. UA was non-infectious in [place]. Check CPK. Continue diltiazem for rate control - give 60mg oral q6hrs as we monitor BP closely. Check TSH Hold nifedipine, lisinopril, Coreg, Bumex, and metolazone for now. Need to reconcile home meds with pharmacy as patient's medication bag doesn't match the records. 06/05/18 WBC trended up overnight, but afebrile. Blood cultures pending Lactate trended down - was 4.[address] Abdomen/pelvis shows colitis - likely infectious given clinical scenario. Occult stool positive - likely due to colitis - will continue BID PPI however for now and hold Eliquis. Restart pending clinical course. On Zosyn and Flagyl - change to Rocephin and Flagyl today. C diff negative. Need to ensure patient's med list is correct tomorrow with [facility] as his list doesn't match what's in his bag of medications. Most notably Eliquis. Continue diltiazem for rate control - change back to once daily dosing in the morning. Restart nifedipine and Coreg today. D/C IVF. Continue to hold Bumex, lisinopril, and metolazone for now - likely need to restart soon. Transfer to floor, up out of bed. 06/06/18 WBC improved to 15.8. Cont metronidazole/Rocephin. Hgb down to 8.2 but stool frequency is decreasing. Cont to hold ASA/Eliquis. Cont PPI. Renal function stable - cr 1.0. Weight is climbing - resume Bumex but will cont to hold metolazone and lisinopril. Resume Coreg. Continue Cardizem and nifedipine Increase activity - consult pt/ot 06/07/18 WBC improved to 15.1. Cont metronidazole/Rocephin. Hgb 8.0 - Cont to hold ASA/Eliquis. Cont PPI. Increased abdominal distention, hypoactive bowel sounds - concerned for ileus. Start bowel regimen. Na down to 135; renal functions with increase, BUN 23 and creatinine 1.4; weight continues to trend up. 86.5 --> 90.7 kg. Requiring 5L of oxygen to maintain saturations. Bumex resumed yesterday; metolazone and lisinopril remain on hold. Yesterday's CXR personally reviewed - stable but clinically concerned about failure. Will repeat CXR in am. 06/08/18 WBC stable at 15. Blood cultures remains negative. Cont metronidazole/Rocephin. Abd Xray revels distension. Asked nursing staff to give Dulcolax sup. Last BM 06/05. Increased oxygen demands up to 6 liters. Noted weight is up a proximal 27 pounds since admission. Resumed Bumex 1 milligram twice a day for diuresing. NA continues to trend down. Noted PO intake yesterday over 2200ML. Will add oral fluid restriction of 1800ML/24hrs. 06/09/18 Cont metronidazole/Rocephin; WBC trending down; 13.7. O2 demands slightly improved from yest but noted increased peripheral edema along with fluid pos status; currently on home dose Bumex 1 mg BID but Hctz has not been resumed. With hyponatremia, would prefer to use loop diuretic -- will give an extra 1 mg of Bumex tomorrow am for diuresis. Will also give KDur 20 mEq x1 in the am. Continue fluid restriction. Hgb stable at 8.3 -- consider resuming at least ASA; consider restarting Eliquis soon. Resume cardizem 360 mg; pt has been going in/out of a-fib. 06/10/18 Obtain venous Doppler of right upper ext to rule out DVT - Negative. Monitor erythema to right arm. Cont Rocephin. Discontinued Flagyl. Continues to have edema and weight continues to trend up. Will change Bumex to 1 mg IV- Monitor output. Will resume home Eliquis as recommended by cardiology team. Monitor for bleeding. Hgb stable at 8.3 Monitor BP- Continue on Cardizem 360mg daily. He does not need Nifedipine as long as BP is controlled. Initiated Solu-Medrol to help breathing - 125mg x1, then 62.5mg q 6 hours. 06/11/18 Continue to monitor erythema of the right antecubital as well as distal edema. Venous Doppler negative for DVT Into need is on Bumex twice a day Aird weight continues to trend up. Check chest x-ray today. Was started on Solu-Medrol to help with breathing last evening Continues on IV Rocephin daily Monitor BP- Continue on Cardizem 360mg daily. He does not need Nifedipine as long as BP is controlled. Hemoglobin remains stable, monitor for evidence of bleeding. Given resume of home Eliquis 06/12/18 White count has increased to 19,000, however, the patient remains on prednisone 30 mg daily. Blood cultures are negative after 5 days. Continue on Rocephin, day #9. DC Metronidazole. Hemoglobin has drifted down to 7.7, but the patient has been asymptomatic and he denies any hematochezia. Iron studies are pending as is Vitamin B12. He continues on Eliquis for A. fib. Platelets are increased at 425, monitor for now. Sodium is low but stable at 130. Renal function is stable. Weight has gone down by 3 kg despite having a fluid positive balance. He remains on 4 L of oxygen. Will discuss diuretic management with Dr. Angelo. Consider reviewing with Dr. Bush, solutions manager for Dr. Grider, prior to DC. 06/13/18 Appreciated surgical consultation by Dr Gibson We discussed diet- He may have a soft diet today with 1/2 portions only. Nursing staff notified. Will change to clear liquids with no diet tonight at [place], followed by NPO tomorrow night 06/16 at [place]. Eliquis remains on hold Planned to upper and lower scope 06/16. Continue to follow blood counts carefully- Hgb 7.4. GI panel was negative yesterday. Stool for occult blood is positive Bumex 1 mg BID for ongoing diuresing Antibiotics completed Case discussed with attending, Dr Angelo 06/14/2018 Appreciated surgical consultation by Dr Gibson We discussed diet- He may have a soft diet today with 1/2 portions only. Nursing staff notified. Will change to clear liquids with no diet tonight at [place], followed by NPO tomorrow night 06/16 at [place]. Eliquis remains on hold Planned to upper and lower scope 06/16. Continue to follow blood counts carefully- Hgb 7.4. GI panel was negative yesterday. Stool for occult blood is positive Bumex 1 mg BID for ongoing diuresing Antibiotics completed 06/15/2018 The patient was found to have a white count of 28 today from 19 yesterday. Bands are 4. He is afebrile. He feels well. Lactate was obtained and was mildly elevated at 2.5. Pro-calcitonin was normal. Chest x-ray showed improved aeration of the right lower lobe. UA was negative. He had a recent GI panel for diarrhea which was negative. He was diuresed significantly yesterday and may just be a little intravascularly dry. We'll repeat lactate and draw blood cultures this afternoon. Hold oral Bumex today. Can decide tomorrow whether or not it should be resumed The patient was previously on Rocephin and Flagyl for colitis but these were discontinued on 06/12/2018. Eliquis is on hold for heme positive stools. Plan for EGD and colonoscopy tomorrow with Dr. Gibson. Regarding A. fib with RVR, cardiology was notified. Rate has slowed down his usual morning diltiazem and carvedilol Patient had been on steroids for acute respiratory failure, prednisone will be discontinued after this morning's dose. At 3:35 PM-repeat lactate after 500 cc bolus was 4.2. I did reexamine the patient and he states he feels just fine. He is finishing up his bowel prep in preparation for EGD and colonoscopy tomorrow. Recheck vitals now show a picture of 98, heart rate 95, respirations 16, blood pressure 141/72, O2 sat 97% on 3 L. He denies feeling feverish or chilled. He denies any sinus congestion, sore throat or cough. He denies increased shortness of breath. He denies any abdominal pain or cramping. He has not had a bowel movement yet with the bowel prep. He denies any dysuria. His urinalysis was was negative for signs of infection. Chest x-ray was improving. With increase in lactate and elevated white count, blood cultures were drawn and will start Rocephin 1 g IV daily empirically. Will give 1 L of fluid over 2 hours. He does not appear to be in septic shock. He appears about the best that I've seen him during this hospital course. I am not giving the 30 mL's per kilogram of IV fluid because he does not appear septic and he already suffers from mild fluid overload. Recheck basic metabolic and lactate at 6:30 this evening. Vitals every hour for now. The patient will let us know if he feel poorly. 06/16/2018 WBC count remains elevated at 27,400. Lactic acid which was 4.1 yesterday improved to 1.2 today. DC IV Rocephin. Patient on IV Zosyn. Status post EGD, colonoscopy on 06/16/2018; colonoscopy showed evidence of ischemic colitis likely secondary to sepsis. Clinically, patient does not have any abdominal pain or tenderness to palpation and tolerating oral intake. Plan to restart patient on Bumex 1 mg by mouth twice a day from tomorrow. Will monitor intake and output, daily weights. Pro-calcitonin was normal. Chest x-ray showed improved aeration of the right lower lobe. UA was negative. He had a recent GI panel 06/13/2018 for diarrhea which was negative. The patient was previously on Rocephin and Flagyl for colitis but these were discontinued on 06/12/2018. Eliquis is on hold for heme positive stools. Case discussed with Dr. Gibson, plan to restart home medication eliquis from tomorrow provided H&H stable. Regarding A. fib with RVR, cardiology was notified. Rate has slowed down his usual morning diltiazem and carvedilol
[2018-06-17] MEDS: SALINE FLUSH 10ml SYRINGE IVF PRN (20:47)
[2018-06-17] MEDS: ROSUVASTATIN 20 MG TABLET PO SCH (20:47)
[2018-06-18] MEDS: PIPERACILLIN/TAZOBACTAM 3.375 GM in NS 100 ML IV SCH ×5 (03:13→20:47)
[2018-06-18] MEDS: NS FLUSH BAG 500ml IV PRN (03:13)
[2018-06-18] MEDS: INSULIN ASPART 100unit/ml INJECTION SQ PRN ×4 (06:40→20:48)
[2018-06-18] MEDS: ALBUTEROL/IPRATROPIUM 2.5mg-0.5mg/3ml NEB AEROSOL SCH ×4 (07:37→19:12)
[2018-06-18] MEDS: BUDESONIDE INH.SOLN 0.5mg/2ml NEB AEROSOL SCH ×2 (07:37→19:12)
[2018-06-18] MEDS: APIXABAN 5 MG TABLET PO SCH ×2 (08:31→20:48)
[2018-06-18] MEDS: CALCIUM 500 + VIT D 200 TABLET PO SCH (08:31)
[2018-06-18] MEDS: DiltiaZEM CD 360 MG CAPSULE PO SCH (08:32)
[2018-06-18] MEDS: BUMETANIDE 1 MG TABLET PO SCH ×2 (08:32→13:58)
[2018-06-18] MEDS: CARVEDILOL 3.125 MG TABLET PO SCH ×2 (08:32→17:01)
[2018-06-18] MEDS: PANTOPRAZOLE 40 MG INJECTION IVP SCH ×3 (08:32→20:48)
[2018-06-18] MEDS: LR 1,000 ML IV SCH (09:45)
--- NOTE | 2018-06-18 18:57 | Progress Note ---
- Date 06/18/18 Subjective: Patient resting in bed side chair. Status post transfusion of 1 unit of PRBC, hemoglobin improved to 10.1 posttransfusion and stable at 9.5 this morning. Patient does have +1 L fluid balance. Leukocytosis is resolving, WBC count 14, 000 this morning when compared to 15,400 yesterday. Patient remains in atrial fibrillation, heart rate relatively controlled [place] [address]. Objective Vital signs: Temperature 98.1 F 06/18/18 15:26 Pulse Rate 101 H 06/18/18 18:06 Respiratory Rate 18 06/18/18 15:26 Blood Pressure 148/67 H 06/18/18 15:26 Pulse Oximetry 99 06/18/18 15:26 Height/Weight/BMI: Height 1.7 m Weight 86.3 kg Body Mass Index 29.3 - Additional findings Additional findings: General: Alert, awake, oriented to self and place. Not in acute distress. Head: Pupils equal, round, reactive to light and accommodation. Extraocular movements intact. Neck: No elevation in JVP. No pharyngeal erythema noted. Chest: The patient does not use accessory muscles for breathing. Lungs: Breath sounds audible on auscultation bilateral lung stroud. No wheezing , no rhonchi, no crepitations, no crackles. No pleural rub. CVS: S1, S2 heard on auscultation. Irregularly irregular heart sounds, tachycardic. No murmur, no S3/S4 gallops. Abdomen: Soft, nontender, obese. Bowel sounds appreciated on auscultation. : No flank tenderness, no suprapubic distention or tenderness. Skin: No rashes, no induration, no erythema. Capillary refill less than 4 seconds. Extremities: 3+ pitting pedal edema bilateral lower extremities. No calf tenderness bilaterally. Palpable dorsalis pedis and posterior tibial pulses bilateral lower extremities. INSPECTOR RECEIVING: Strength 5/5 bilateral upper and lower extremities. Sensations intact. No slurred speech, no facial droop. No discernible focal neurological deficits. Results - Labs CBC & Chem 7: 06/18/18 07:53 06/18/18 07:53 Microbiology Results: Microbiology 06/15/18 14:38 Peripheral/Iv Start Blood Culture - Preliminary No Growth After 3 Days 06/15/18 14:38 Peripheral/Iv Start Gram Stain - Final 06/15/18 14:38 Peripheral/Iv Start Blood Culture - Preliminary Gram Positive Anastacio 06/04/18 14:30 Peripheral/Iv Start Blood Culture - Final No Growth After 5 Days 06/04/18 14:30 Peripheral/Iv Start Blood Culture - Final No Growth After 5 Days Assessment and Plan (1) Atrial fibrillation with RVR Current visit: No Status: Chronic (2) Atherosclerotic heart disease of telida coronary artery without angina pectoris Current visit: No Status: Chronic (3) Sepsis Current visit: Yes Status: Acute (4) LUIS (acute kidney injury) Current visit: Yes Status: Acute (5) Generalized weakness Current visit: Yes Status: Acute (6) Congestive heart failure Problem details: EF 50% with echo in January 2018 Current visit: Yes Status: Chronic (7) Tobacco abuse Current visit: Yes Status: Chronic Assessment and Plan: Assessment Sepsis - present on admission with WBC, tachy, low BP, high lactate, LUIS - likely GI source, resolved Leukocytosis on 06/15/2018 without significant change in left shift - continue IV Zosyn. Colitis seen on CT- ischemic versus infectious, likely infectious given clinical scenario Heme positive stoolstatus post EGD/colonoscopy performed by Dr. Gibson on Iron Deficiency anemia -hemoglobin 7.7 today. Patient received IV iron Hyponatremia, not POA Atrial fibrillation with RVR Thrombocytosis, not POA V-tach, [id number] beat run on 06/04/2018 -no recurrence on telemetry Elevated creatinine-resolved CAD with an EF of 50%, mild mitral regurgitation, mild aortic insufficiency and mild tricuspid regurgitation Hypertension Dyslipidemia CHF - chronic diastolic heart failure -EF 50%. Tentative plan to restart Bumex from tomorrow morning. Chronic respiratory failure - 3L at home Plan WBC count improved from 15,400 yesterday to 14,000 today. Continue IV Zosyn. Status post EGD, colonoscopy on 06/16/2018; colonoscopy showed evidence of ischemic colitis likely secondary to sepsis. Clinically, patient does not have any abdominal pain or tenderness to palpation and tolerating oral intake. Evidence of fluid overload, although patient has -1 L fluid balance overnight. Continue Bumex 1 mg by mouth twice a day. We will provide metolazone 5 mg by mouth 1. Will monitor intake and output, daily weights. Continue home medications eliquis 5 mg twice a day. Hemoglobin 7.7 yesterday, status post transfusion of 1 unit of PRBC, hemoglobin 9.5 this morning. Will monitor H&H. Regarding A. fib without RVR. Continue current dose of oral diltiazem and carvedilol. DVT Prophylaxis: Eliquis GI Prophylaxis: Protonix Resuscitation Status: Full Code - Time spent with patient Time with patient PN: 35 minutes - Physician Narrative Narrative: Date: 06/18/18 Time: 1852 Hospital Course Summary Disclaimer: The visit summary below is not to be considered part of the above Progress Note. Hospital Course: 01/2018- med list from discharge on cardiology service New Apixaban [Eliquis] 5 mg PO BID #60 tab Aspirin *EC* [Ecotrin] 81 mg PO DAILY #30 tab DiltiaZEM CD [Cardizem CD 360 MG] 360 mg PO DAILY #30 cap Rosuvastatin [Crestor] 20 mg PO HS #30 tab DiltiaZEM CD [Cardizem CD 240 MG] 240 mg PO DAILY #30 cap Continue Calcium Carbonate/Vitamin D3 [Calcium 500-Vit D3 200 Tablet] 2 each PO DAILY Ranitidine [Zantac] 1 tab PO DAILY NIFEdipine [Nifedipine ER] 90 mg PO DAILY Loratadine 10 mg PO DAILY PRN PRN Reason: Allergy Symptoms Lisinopril [Prinivil] 40 mg PO DAILY Metformin HCl 1,000 mg PO WS Ferrous Sulfate 325 mg PO DAILY Carvedilol [Coreg] 1 tab PO BIDWM Bumetanide Tab [Bumex 1 mg Tab] 1 mg PO BID Metolazone [Zaroxolyn] 2.5 mg PO DAILY Aspirin 1 tab PO DAILY Cyclobenzaprine [Flexeril] 10 mg PO HS Potassium Chloride [K-Tab ER] 20 meq PO DAILY 06/04/18 Admit patient to ICU due to unstable vital signs just prior to transfer. Repeat basic labs,troponin, and lactate to find trend. Blood cultures pending in [facility] [place] Abdomen/pelvis due to sepsis, LUQ pain, elevated lactate. Get occult stool, stool for c diff, and GI PCR panel of stool. Monitor h/h. Start Protonix IV BID in the event of an UGIB and avoid blood thinners for now. Uncertain if patient is taking the Eliquis that was prescribed to him in January, as it's not in his medication bag - would hold acutely anyway. Give IVF and monitor UOP and creatinine in morning. UA was non-infectious in [facility]. Check CPK. Continue diltiazem for rate control - give 60mg oral q6hrs as we monitor BP closely. Check TSH Hold nifedipine, lisinopril, Coreg, Bumex, and metolazone for now. Need to reconcile home meds with pharmacy as patient's medication bag doesn't match the records. 06/05/18 WBC trended up overnight, but afebrile. Blood cultures pending Lactate trended down - was 4.[address] [place] [address] Abdomen/pelvis shows colitis - likely infectious given clinical scenario. Occult stool positive - likely due to colitis - will continue BID PPI however for now and hold Eliquis. Restart pending clinical course. On Zosyn and Flagyl - change to Rocephin and Flagyl today. C diff negative. Need to ensure patient's med list is correct tomorrow with [facility] as his list doesn't match what's in his bag of medications. Most notably Eliquis. Continue diltiazem for rate control - change back to once daily dosing in the morning. Restart nifedipine and Coreg today. D/C IVF. Continue to hold Bumex, lisinopril, and metolazone for now - likely need to restart soon. Transfer to floor, up out of bed. 06/06/18 WBC improved to 15.8. Cont metronidazole/Rocephin. Hgb down to 8.2 but stool frequency is decreasing. Cont to hold ASA/Eliquis. Cont PPI. Renal function stable - cr 1.0. Weight is climbing - resume Bumex but will cont to hold metolazone and lisinopril. Resume Coreg. Continue Cardizem and nifedipine Increase activity - consult pt/ot 06/07/18 WBC improved to 15.1. Cont metronidazole/Rocephin. Hgb 8.0 - Cont to hold ASA/Eliquis. Cont PPI. Increased abdominal distention, hypoactive bowel sounds - concerned for ileus. Start bowel regimen. Na down to 135; renal functions with increase, BUN 23 and creatinine 1.4; weight continues to trend up. 86.5 --> 90.7 kg. Requiring 5L of oxygen to maintain saturations. Bumex resumed yesterday; metolazone and lisinopril remain on hold. Yesterday's CXR personally reviewed - stable but clinically concerned about failure. Will repeat CXR in am. 06/08/18 WBC stable at 15. Blood cultures remains negative. Cont metronidazole/Rocephin. Abd Xray revels distension. Asked nursing staff to give Dulcolax sup. Last BM 06/05. Increased oxygen demands up to 6 liters. Noted weight is up a proximal 27 pounds since admission. Resumed Bumex 1 milligram twice a day for diuresing. NA continues to trend down. Noted PO intake yesterday over 2200ML. Will add oral fluid restriction of 1800ML/24hrs. 06/09/18 Cont metronidazole/Rocephin; WBC trending down; 13.7. O2 demands slightly improved from yest but noted increased peripheral edema along with fluid pos status; currently on home dose Bumex 1 mg BID but Hctz has not been resumed. With hyponatremia, would prefer to use loop diuretic -- will give an extra 1 mg of Bumex tomorrow am for diuresis. Will also give KDur 20 mEq x1 in the am. Continue fluid restriction. Hgb stable at 8.3 -- consider resuming at least ASA; consider restarting Eliquis soon. Resume cardizem 360 mg; pt has been going in/out of a-fib. 06/10/18 Obtain venous Doppler of right upper ext to rule out DVT - Negative. Monitor erythema to right arm. Cont Rocephin. Discontinued Flagyl. Continues to have edema and weight continues to trend up. Will change Bumex to 1 mg IV- Monitor output. Will resume home Eliquis as recommended by cardiology team. Monitor for bleeding. Hgb stable at 8.3 Monitor BP- Continue on Cardizem 360mg daily. He does not need Nifedipine as long as BP is controlled. Initiated Solu-Medrol to help breathing - 125mg x1, then 62.5mg q 6 hours. 06/11/18 Continue to monitor erythema of the right antecubital as well as distal edema. Venous Doppler negative for DVT Into need is on Bumex twice a day Aird weight continues to trend up. Check chest x-ray today. Was started on Solu-Medrol to help with breathing last evening Continues on IV Rocephin daily Monitor BP- Continue on Cardizem 360mg daily. He does not need Nifedipine as long as BP is controlled. Hemoglobin remains stable, monitor for evidence of bleeding. Given resume of home Eliquis 06/12/18 White count has increased to 19,000, however, the patient remains on prednisone 30 mg daily. Blood cultures are negative after 5 days. Continue on Rocephin, day #9. DC Metronidazole. Hemoglobin has drifted down to 7.7, but the patient has been asymptomatic and he denies any hematochezia. Iron studies are pending as is Vitamin B12. He continues on Eliquis for A. fib. Platelets are increased at 425, monitor for now. Sodium is low but stable at 130. Renal function is stable. Weight has gone down by 3 kg despite having a fluid positive balance. He remains on 4 L of oxygen. Will discuss diuretic management with Dr. Angelo. Consider reviewing with Dr. Bush, mine production engineer for Dr. Grider, prior to DC. 06/13/18 Appreciated surgical consultation by Dr Gibson We discussed diet- He may have a soft diet today with 1/2 portions only. Nursing staff notified. Will change to clear liquids with no diet tonight at [facility], followed by NPO tomorrow night 06/16 at [place]. Eliquis remains on hold Planned to upper and lower scope 06/16. Continue to follow blood counts carefully- Hgb 7.4. GI panel was negative yesterday. Stool for occult blood is positive Bumex 1 mg BID for ongoing diuresing Antibiotics completed Case discussed with attending, Dr Angelo 06/14/2018 Appreciated surgical consultation by Dr Gibson We discussed diet- He may have a soft diet today with 1/2 portions only. Nursing staff notified. Will change to clear liquids with no diet tonight at [facility], followed by NPO tomorrow night 06/16 at [place]. Eliquis remains on hold Planned to upper and lower scope 06/16. Continue to follow blood counts carefully- Hgb 7.4. GI panel was negative yesterday. Stool for occult blood is positive Bumex 1 mg BID for ongoing diuresing Antibiotics completed 06/15/2018 The patient was found to have a white count of 28 today from 19 yesterday. Bands are 4. He is afebrile. He feels well. Lactate was obtained and was mildly elevated at 2.5. Pro-calcitonin was normal. Chest x-ray showed improved aeration of the right lower lobe. UA was negative. He had a recent GI panel for diarrhea which was negative. He was diuresed significantly yesterday and may just be a little intravascularly dry. We'll repeat lactate and draw blood cultures this afternoon. Hold oral Bumex today. Can decide tomorrow whether or not it should be resumed The patient was previously on Rocephin and Flagyl for colitis but these were discontinued on 06/12/2018. Eliquis is on hold for heme positive stools. Plan for EGD and colonoscopy tomorrow with Dr. Gibson. Regarding A. fib with RVR, cardiology was notified. Rate has slowed down his usual morning diltiazem and carvedilol Patient had been on steroids for acute respiratory failure, prednisone will be discontinued after this morning's dose. At 3:35 PM-repeat lactate after 500 cc bolus was 4.2. I did reexamine the patient and he states he feels just fine. He is finishing up his bowel prep in preparation for EGD and colonoscopy tomorrow. Recheck vitals now show a picture of 98, heart rate 95, respirations 16, blood pressure 141/72, O2 sat 97% on 3 L. He denies feeling feverish or chilled. He denies any sinus congestion, sore throat or cough. He denies increased shortness of breath. He denies any abdominal pain or cramping. He has not had a bowel movement yet with the bowel prep. He denies any dysuria. His urinalysis was was negative for signs of infection. Chest x-ray was improving. With increase in lactate and elevated white count, blood cultures were drawn and will start Rocephin 1 g IV daily empirically. Will give 1 L of fluid over 2 hours. He does not appear to be in septic shock. He appears about the best that I've seen him during this hospital course. I am not giving the 30 mL's per kilogram of IV fluid because he does not appear septic and he already suffers from mild fluid overload. Recheck basic metabolic and lactate at 6:30 this evening. Vitals every hour for now. The patient will let us know if he feel poorly. 06/16/2018 WBC count remains elevated at 27,400. Lactic acid which was 4.1 yesterday improved to 1.2 today. DC IV Rocephin. Patient on IV Zosyn. Status post EGD, colonoscopy on 06/16/2018; colonoscopy showed evidence of ischemic colitis likely secondary to sepsis. Clinically, patient does not have any abdominal pain or tenderness to palpation and tolerating oral intake. Plan to restart patient on Bumex 1 mg by mouth twice a day from tomorrow. Will monitor intake and output, daily weights. Pro-calcitonin was normal. Chest x-ray showed improved aeration of the right lower lobe. UA was negative. He had a recent GI panel 06/13/2018 for diarrhea which was negative. The patient was previously on Rocephin and Flagyl for colitis but these were discontinued on 06/12/2018. Eliquis is on hold for heme positive stools. Case discussed with Dr. Gibson, plan to restart home medication eliquis from tomorrow provided H&H stable. Regarding A. fib with RVR, cardiology was notified. Rate has slowed down his usual morning diltiazem and carvedilol 06/17/2018 WBC count improved from 27,400 yesterday to 15,400 today. Lactic acid improved to 1.2 yesterday. Continue IV Zosyn. Status post EGD, colonoscopy on 06/16/2018; colonoscopy showed evidence of ischemic colitis likely secondary to sepsis. Clinically, patient does not have any abdominal pain or tenderness to palpation and tolerating oral intake. Evidence of fluid overload, although patient has lost 1.1 KG when compared to yesterday. Continue Bumex 1 mg by mouth twice a day. Will monitor intake and output, daily weights. Patient restarted on home medications eliquis 5 mg twice a day. Hemoglobin 7.7, has been ranging from 7. 48 during the course of hospital stay. Case discussed with Dr. Nirmal Metcalf and recommendation transfuse 1 unit of PRBC. We will provide 20 mg IV Lasix posttransfusion. Will monitor H&H. Regarding A. fib with RVR, cardiology was notified. Recommendation to continue current dose of oral diltiazem and carvedilol. Serum potassium 3.3, will provide oral potassium chloride 40 mEq 1. 06/18/2018 WBC count improved from 15,400 yesterday to 14,000 today. Continue IV Zosyn. Status post EGD, colonoscopy on 06/16/2018; colonoscopy showed evidence of ischemic colitis likely secondary to sepsis. Clinically, patient does not have any abdominal pain or tenderness to palpation and tolerating oral intake. Evidence of fluid overload, although patient has -1 L fluid balance overnight. Continue Bumex 1 mg by mouth twice a day. We will provide metolazone 5 mg by mouth 1. Will monitor intake and output, daily weights. Continue home medications eliquis 5 mg twice a day. Hemoglobin 7.7 yesterday, status post transfusion of 1 unit of PRBC, hemoglobin 9.5 this morning. Will monitor H&H. Regarding A. fib without RVR. Continue current dose of oral diltiazem and carvedilol.
[2018-06-18] MEDS: ROSUVASTATIN 20 MG TABLET PO SCH (20:48)
[2018-06-19] MEDS: SALINE FLUSH 10ml SYRINGE IVF PRN ×2 (03:08→08:26)
[2018-06-19] MEDS: PIPERACILLIN/TAZOBACTAM 3.375 GM in NS 100 ML IV SCH ×2 (03:08→08:31)
[2018-06-19] MEDS: NS FLUSH BAG 500ml IV PRN (03:10)
[2018-06-19] MEDS: INSULIN ASPART 100unit/ml INJECTION SQ PRN ×4 (06:36→20:51)
[2018-06-19] MEDS: ALBUTEROL/IPRATROPIUM 2.5mg-0.5mg/3ml NEB AEROSOL SCH ×4 (08:09→19:17)
[2018-06-19] MEDS: BUDESONIDE INH.SOLN 0.5mg/2ml NEB AEROSOL SCH ×2 (08:09→19:17)
[2018-06-19] MEDS: PANTOPRAZOLE 40 MG INJECTION IVP SCH (08:25)
[2018-06-19] MEDS: APIXABAN 5 MG TABLET PO SCH ×2 (08:26→20:34)
[2018-06-19] MEDS: CALCIUM 500 + VIT D 200 TABLET PO SCH (08:26)
[2018-06-19] MEDS: CARVEDILOL 3.125 MG TABLET PO SCH ×2 (08:27→17:29)
[2018-06-19] MEDS: BUMETANIDE 1 MG TABLET PO SCH ×2 (08:27→14:02)
[2018-06-19] MEDS: DiltiaZEM CD 360 MG CAPSULE PO SCH (08:27)
--- NOTE | 2018-06-19 11:14 | Progress Note ---
- Date 06/19/18 Subjective: Patient resting in bed at the time of interview. No reported chest pain, no palpitations, no nausea, no vomiting, no abdominal pain, no diarrhea. Patient tolerating oral diet. WBC count improved significantly to 11,900 today. Hemoglobin stable at 9.5 status post transfusion of 1 unit of PRBC 2 days ago. We will switch IV Protonix to oral Protonix. We will also discontinue IV Zosyn and patient will be started on oral ciprofloxacin and Flagyl. Repeat CBC, BMP tomorrow. Objective Vital signs: Temperature 98.3 F 06/19/18 07:43 Pulse Rate 75 06/19/18 08:00 Respiratory Rate 20 06/19/18 08:16 Blood Pressure 147/69 H 06/19/18 07:43 Pulse Oximetry 99 06/19/18 08:16 Height/Weight/BMI: Height 1.7 m Weight 85.3 kg Body Mass Index 29.3 - Additional findings Additional findings: General: Alert, awake, oriented x3. Not in acute distress. Head: Pupils equal, round, reactive to light and accommodation. Extraocular movements intact. Neck: No elevation in JVP. No pharyngeal erythema noted. Chest: The patient does not use accessory muscles for breathing. Lungs: Breath sounds audible on auscultation bilateral lung stroud. No wheezing , no rhonchi, no crepitations, no crackles. No pleural rub. CVS: S1, S2 heard on auscultation. Normal rate and rhythm. No murmur, no S3/S4 gallops. Abdomen: Soft, nontender, no distention. Bowel sounds appreciated on auscultation. Skin: No rashes, no induration, no erythema. Capillary refill less than 4 seconds. Extremities: 2+ pitting pedal edema bilateral lower extremities. No calf tenderness bilaterally. Palpable dorsalis pedis and posterior tibial pulses bilateral lower extremities. Results - Labs CBC & Chem 7: 06/19/18 09:40 06/19/18 10:17 Microbiology Results: Microbiology 06/15/18 14:38 Peripheral/Iv Start Blood Culture - Preliminary No Growth After 3 Days 06/15/18 14:38 Peripheral/Iv Start Gram Stain - Final 06/15/18 14:38 Peripheral/Iv Start Blood Culture - Preliminary Gram Positive Anastacio 06/04/18 14:30 Peripheral/Iv Start Blood Culture - Final No Growth After 5 Days 06/04/18 14:30 Peripheral/Iv Start Blood Culture - Final No Growth After 5 Days Assessment and Plan (1) Atrial fibrillation with RVR Current visit: No Status: Chronic (2) Atherosclerotic heart disease of [place] coronary artery without angina pectoris Current visit: No Status: Chronic (3) Sepsis Current visit: Yes Status: Acute (4) LUIS (acute kidney injury) Current visit: Yes Status: Acute (5) Generalized weakness Current visit: Yes Status: Acute (6) Congestive heart failure Problem details: EF 50% with echo in January 2018 Current visit: Yes Status: Chronic (7) Tobacco abuse Current visit: Yes Status: Chronic Assessment and Plan: Assessment Sepsis - present on admission with WBC, tachy, low BP, high lactate, LUIS - likely GI source, resolved Leukocytosis on 06/15/2018 without significant change in left shift - continue IV Zosyn. Colitis seen on CT- ischemic versus infectious, likely infectious given clinical scenario Heme positive stoolstatus post EGD/colonoscopy performed by Dr. Gibson on Iron Deficiency anemia. Patient received IV iron and 1 unit of PRBC transfusion Hyponatremia, not POA Atrial fibrillation Thrombocytosis, not POA V-tach, [id number] beat run on 06/04/2018 -no recurrence on telemetry Elevated creatinine-resolved CAD with an EF of 50%, mild mitral regurgitation, mild aortic insufficiency and mild tricuspid regurgitation Hypertension Dyslipidemia CHF - chronic diastolic heart failure -EF 50%. Tentative plan to restart Bumex from tomorrow morning. Chronic respiratory failure - 3L at home Plan WBC count improved from 14,000 yesterday to 11,900 today. Stop IV Zosyn. Patient started on oral ciprofloxacin and Flagyl. DC IV Protonix, patient started on oral Protonix 40 mg before meals twice a day. Status post EGD, colonoscopy on 06/16/2018; colonoscopy showed evidence of ischemic colitis likely secondary to sepsis. Clinically, patient does not have any abdominal pain or tenderness to palpation and tolerating oral intake. Evidence of fluid overload, patient has negative 300 mL fluid balance overnight. Patient received 1 dose of metolazone 5 mg by mouth this morning. We will switch Bumex 2 mg every morning and 1 mg every afternoon. Will monitor intake and output, daily weights. Continue home medications eliquis 5 mg twice a day. Status post transfusion of 1 unit of PRBC on 06/17/2018, hemoglobin 9.5 this morning. Will monitor H&H. For paroxysmal atrial fibrillation continue current dose of oral diltiazem and carvedilol. DVT Prophylaxis: Eliquis GI Prophylaxis: Protonix Resuscitation Status: Full Code - Time spent with patient Time with patient PN: 35 minutes - Physician Narrative Narrative: Date: 06/19/18 Time: 1102 Hospital Course Summary Disclaimer: The visit summary below is not to be considered part of the above Progress Note. Hospital Course: 01/2018- med list from discharge on cardiology service New Apixaban [Eliquis] 5 mg PO BID #60 tab Aspirin *EC* [Ecotrin] 81 mg PO DAILY #30 tab DiltiaZEM CD [Cardizem CD 360 MG] 360 mg PO DAILY #30 cap Rosuvastatin [Crestor] 20 mg PO HS #30 tab DiltiaZEM CD [Cardizem CD 240 MG] 240 mg PO DAILY #30 cap Continue Calcium Carbonate/Vitamin D3 [Calcium 500-Vit D3 200 Tablet] 2 each PO DAILY Ranitidine [Zantac] 1 tab PO DAILY NIFEdipine [Nifedipine ER] 90 mg PO DAILY Loratadine 10 mg PO DAILY PRN PRN Reason: Allergy Symptoms Lisinopril [Prinivil] 40 mg PO DAILY Metformin HCl 1,000 mg PO WS Ferrous Sulfate 325 mg PO DAILY Carvedilol [Coreg] 1 tab PO BIDWM Bumetanide Tab [Bumex 1 mg Tab] 1 mg PO BID Metolazone [Zaroxolyn] 2.5 mg PO DAILY Aspirin 1 tab PO DAILY Cyclobenzaprine [Flexeril] 10 mg PO HS Potassium Chloride [K-Tab ER] 20 meq PO DAILY 06/04/18 Admit patient to ICU due to unstable vital signs just prior to transfer. Repeat basic labs,troponin, and lactate to find trend. Blood cultures pending in [place] [place] Abdomen/pelvis due to sepsis, LUQ pain, elevated lactate. Get occult stool, stool for c diff, and GI PCR panel of stool. Monitor h/h. Start Protonix IV BID in the event of an UGIB and avoid blood thinners for now. Uncertain if patient is taking the Eliquis that was prescribed to him in January, as it's not in his medication bag - would hold acutely anyway. Give IVF and monitor UOP and creatinine in morning. UA was non-infectious in [place]. Check CPK. Continue diltiazem for rate control - give 60mg oral q6hrs as we monitor BP closely. Check TSH Hold nifedipine, lisinopril, Coreg, Bumex, and metolazone for now. Need to reconcile home meds with pharmacy as patient's medication bag doesn't match the records. 06/05/18 WBC trended up overnight, but afebrile. Blood cultures pending Lactate trended down - was 4.[address] [place] [address] Abdomen/pelvis shows colitis - likely infectious given clinical scenario. Occult stool positive - likely due to colitis - will continue BID PPI however for now and hold Eliquis. Restart pending clinical course. On Zosyn and Flagyl - change to Rocephin and Flagyl today. C diff negative. Need to ensure patient's med list is correct tomorrow with [facility] as his list doesn't match what's in his bag of medications. Most notably Eliquis. Continue diltiazem for rate control - change back to once daily dosing in the morning. Restart nifedipine and Coreg today. D/C IVF. Continue to hold Bumex, lisinopril, and metolazone for now - likely need to restart soon. Transfer to floor, up out of bed. 06/06/18 WBC improved to 15.8. Cont metronidazole/Rocephin. Hgb down to 8.2 but stool frequency is decreasing. Cont to hold ASA/Eliquis. Cont PPI. Renal function stable - cr 1.0. Weight is climbing - resume Bumex but will cont to hold metolazone and lisinopril. Resume Coreg. Continue Cardizem and nifedipine Increase activity - consult pt/ot 06/07/18 WBC improved to 15.1. Cont metronidazole/Rocephin. Hgb 8.0 - Cont to hold ASA/Eliquis. Cont PPI. Increased abdominal distention, hypoactive bowel sounds - concerned for ileus. Start bowel regimen. Na down to 135; renal functions with increase, BUN 23 and creatinine 1.4; weight continues to trend up. 86.5 --> 90.7 kg. Requiring 5L of oxygen to maintain saturations. Bumex resumed yesterday; metolazone and lisinopril remain on hold. Yesterday's CXR personally reviewed - stable but clinically concerned about failure. Will repeat CXR in am. 06/08/18 WBC stable at 15. Blood cultures remains negative. Cont metronidazole/Rocephin. Abd Xray revels distension. Asked nursing staff to give Dulcolax sup. Last BM 06/05. Increased oxygen demands up to 6 liters. Noted weight is up a proximal 27 pounds since admission. Resumed Bumex 1 milligram twice a day for diuresing. NA continues to trend down. Noted PO intake yesterday over 2200ML. Will add oral fluid restriction of 1800ML/24hrs. 06/09/18 Cont metronidazole/Rocephin; WBC trending down; 13.7. O2 demands slightly improved from yest but noted increased peripheral edema along with fluid pos status; currently on home dose Bumex 1 mg BID but Hctz has not been resumed. With hyponatremia, would prefer to use loop diuretic -- will give an extra 1 mg of Bumex tomorrow am for diuresis. Will also give KDur 20 mEq x1 in the am. Continue fluid restriction. Hgb stable at 8.3 -- consider resuming at least ASA; consider restarting Eliquis soon. Resume cardizem 360 mg; pt has been going in/out of a-fib. 06/10/18 Obtain venous Doppler of right upper ext to rule out DVT - Negative. Monitor erythema to right arm. Cont Rocephin. Discontinued Flagyl. Continues to have edema and weight continues to trend up. Will change Bumex to 1 mg IV- Monitor output. Will resume home Eliquis as recommended by cardiology team. Monitor for bleeding. Hgb stable at 8.3 Monitor BP- Continue on Cardizem 360mg daily. He does not need Nifedipine as long as BP is controlled. Initiated Solu-Medrol to help breathing - 125mg x1, then 62.5mg q 6 hours. 06/11/18 Continue to monitor erythema of the right antecubital as well as distal edema. Venous Doppler negative for DVT Into need is on Bumex twice a day Aird weight continues to trend up. Check chest x-ray today. Was started on Solu-Medrol to help with breathing last evening Continues on IV Rocephin daily Monitor BP- Continue on Cardizem 360mg daily. He does not need Nifedipine as long as BP is controlled. Hemoglobin remains stable, monitor for evidence of bleeding. Given resume of home Eliquis 06/12/18 White count has increased to 19,000, however, the patient remains on prednisone 30 mg daily. Blood cultures are negative after 5 days. Continue on Rocephin, day #9. DC Metronidazole. Hemoglobin has drifted down to 7.7, but the patient has been asymptomatic and he denies any hematochezia. Iron studies are pending as is Vitamin B12. He continues on Eliquis for A. fib. Platelets are increased at 425, monitor for now. Sodium is low but stable at 130. Renal function is stable. Weight has gone down by 3 kg despite having a fluid positive balance. He remains on 4 L of oxygen. Will discuss diuretic management with Dr. Angelo. Consider reviewing with Dr. Bush, exploitation analyst for Dr. Grider, prior to DC. 06/13/18 Appreciated surgical consultation by Dr Gibson We discussed diet- He may have a soft diet today with 1/2 portions only. Nursing staff notified. Will change to clear liquids with no diet tonight at [place], followed by NPO tomorrow night 06/16 at pr. Eliquis remains on hold Planned to upper and lower scope 06/16. Continue to follow blood counts carefully- Hgb 7.4. GI panel was negative yesterday. Stool for occult blood is positive Bumex 1 mg BID for ongoing diuresing Antibiotics completed Case discussed with attending, Dr Angelo 06/14/2018 Appreciated surgical consultation by Dr Gibson We discussed diet- He may have a soft diet today with 1/2 portions only. Nursing staff notified. Will change to clear liquids with no diet tonight at MN, followed by NPO tomorrow night 06/16 at pr. Eliquis remains on hold Planned to upper and lower scope 06/16. Continue to follow blood counts carefully- Hgb 7.4. GI panel was negative yesterday. Stool for occult blood is positive Bumex 1 mg BID for ongoing diuresing Antibiotics completed 06/15/2018 The patient was found to have a white count of 28 today from 19 yesterday. Bands are 4. He is afebrile. He feels well. Lactate was obtained and was mildly elevated at 2.5. Pro-calcitonin was normal. Chest x-ray showed improved aeration of the right lower lobe. UA was negative. He had a recent GI panel for diarrhea which was negative. He was diuresed significantly yesterday and may just be a little intravascularly dry. We'll repeat lactate and draw blood cultures this afternoon. Hold oral Bumex today. Can decide tomorrow whether or not it should be resumed The patient was previously on Rocephin and Flagyl for colitis but these were discontinued on 06/12/2018. Eliquis is on hold for heme positive stools. Plan for EGD and colonoscopy tomorrow with Dr. Gibson. Regarding A. fib with RVR, cardiology was notified. Rate has slowed down his usual morning diltiazem and carvedilol Patient had been on steroids for acute respiratory failure, prednisone will be discontinued after this morning's dose. At 3:35 PM-repeat lactate after 500 cc bolus was 4.2. I did reexamine the patient and he states he feels just fine. He is finishing up his bowel prep in preparation for EGD and colonoscopy tomorrow. Recheck vitals now show a picture of 98, heart rate 95, respirations 16, blood pressure 141/72, O2 sat 97% on 3 L. He denies feeling feverish or chilled. He denies any sinus congestion, sore throat or cough. He denies increased shortness of breath. He denies any abdominal pain or cramping. He has not had a bowel movement yet with the bowel prep. He denies any dysuria. His urinalysis was was negative for signs of infection. Chest x-ray was improving. With increase in lactate and elevated white count, blood cultures were drawn and will start Rocephin 1 g IV daily empirically. Will give 1 L of fluid over 2 hours. He does not appear to be in septic shock. He appears about the best that I've seen him during this hospital course. I am not giving the 30 mL's per kilogram of IV fluid because he does not appear septic and he already suffers from mild fluid overload. Recheck basic metabolic and lactate at 6:30 this evening. Vitals every hour for now. The patient will let us know if he feel poorly. 06/16/2018 WBC count remains elevated at 27,400. Lactic acid which was 4.1 yesterday improved to 1.2 today. DC IV Rocephin. Patient on IV Zosyn. Status post EGD, colonoscopy on 06/16/2018; colonoscopy showed evidence of ischemic colitis likely secondary to sepsis. Clinically, patient does not have any abdominal pain or tenderness to palpation and tolerating oral intake. Plan to restart patient on Bumex 1 mg by mouth twice a day from tomorrow. Will monitor intake and output, daily weights. Pro-calcitonin was normal. Chest x-ray showed improved aeration of the right lower lobe. UA was negative. He had a recent GI panel 06/13/2018 for diarrhea which was negative. The patient was previously on Rocephin and Flagyl for colitis but these were discontinued on 06/12/2018. Eliquis is on hold for heme positive stools. Case discussed with Dr. Gibson, plan to restart home medication eliquis from tomorrow provided H&H stable. Regarding A. fib with RVR, cardiology was notified. Rate has slowed down his usual morning diltiazem and carvedilol 06/17/2018 WBC count improved from 27,400 yesterday to 15,400 today. Lactic acid improved to 1.2 yesterday. Continue IV Zosyn. Status post EGD, colonoscopy on 06/16/2018; colonoscopy showed evidence of ischemic colitis likely secondary to sepsis. Clinically, patient does not have any abdominal pain or tenderness to palpation and tolerating oral intake. Evidence of fluid overload, although patient has lost 1.1 KG when compared to yesterday. Continue Bumex 1 mg by mouth twice a day. Will monitor intake and output, daily weights. Patient restarted on home medications eliquis 5 mg twice a day. Hemoglobin 7.7, has been ranging from 7. 48 during the course of hospital stay. Case discussed with Dr. Nirmal Metcalf and recommendation transfuse 1 unit of PRBC. We will provide 20 mg IV Lasix posttransfusion. Will monitor H&H. Regarding A. fib with RVR, cardiology was notified. Recommendation to continue current dose of oral diltiazem and carvedilol. Serum potassium 3.3, will provide oral potassium chloride 40 mEq 1. 06/18/2018 WBC count improved from 15,400 yesterday to 14,000 today. Continue IV Zosyn. Status post EGD, colonoscopy on 06/16/2018; colonoscopy showed evidence of ischemic colitis likely secondary to sepsis. Clinically, patient does not have any abdominal pain or tenderness to palpation and tolerating oral intake. Evidence of fluid overload, although patient has -1 L fluid balance overnight. Continue Bumex 1 mg by mouth twice a day. We will provide metolazone 5 mg by mouth 1. Will monitor intake and output, daily weights. Continue home medications eliquis 5 mg twice a day. Hemoglobin 7.7 yesterday, status post transfusion of 1 unit of PRBC, hemoglobin 9.5 this morning. Will monitor H&H. Regarding A. fib without RVR. Continue current dose of oral diltiazem and carvedilol. 06/19/2018 WBC count improved from 14,000 yesterday to 11,900 today. Stop IV Zosyn. Patient started on oral ciprofloxacin and Flagyl. DC IV Protonix, patient started on oral Protonix 40 mg before meals twice a day. Status post EGD, colonoscopy on 06/16/2018; colonoscopy showed evidence of ischemic colitis likely secondary to sepsis. Clinically, patient does not have any abdominal pain or tenderness to palpation and tolerating oral intake. Evidence of fluid overload, patient has negative 300 mL fluid balance overnight. Patient received 1 dose of metolazone 5 mg by mouth this morning. We will switch Bumex 2 mg every morning and 1 mg every afternoon. Will monitor intake and output, daily weights. Continue home medications eliquis 5 mg twice a day. Status post transfusion of 1 unit of PRBC on 06/17/2018, hemoglobin 9.5 this morning. Will monitor H&H. For paroxysmal atrial fibrillation continue current dose of oral diltiazem and carvedilol.
[2018-06-19] MEDS: PANTOPRAZOLE 40 MG TABLET PO SCH (17:29)
[2018-06-19] MEDS: CIPROFLOXACIN 500 MG TABLET PO SCH (20:35)
[2018-06-19] MEDS: MetroNIDAZOLE 500 MG TABLET PO SCH (20:35)
[2018-06-19] MEDS: ROSUVASTATIN 20 MG TABLET PO SCH (20:46)
[2018-06-20] MEDS: INSULIN ASPART 100unit/ml INJECTION SQ PRN ×4 (05:02→20:23)
[2018-06-20] MEDS: PANTOPRAZOLE 40 MG TABLET PO SCH ×2 (05:44→18:42)
[2018-06-20] MEDS: ALBUTEROL/IPRATROPIUM 2.5mg-0.5mg/3ml NEB AEROSOL SCH ×4 (07:58→20:55)
[2018-06-20] MEDS: BUDESONIDE INH.SOLN 0.5mg/2ml NEB AEROSOL SCH ×2 (08:01→20:56)
[2018-06-20] MEDS: APIXABAN 5 MG TABLET PO SCH ×2 (08:42→20:03)
[2018-06-20] MEDS: CARVEDILOL 3.125 MG TABLET PO SCH ×2 (08:42→18:42)
[2018-06-20] MEDS: BUMETANIDE 1 MG TABLET PO SCH ×2 (08:43→13:41)
[2018-06-20] MEDS: CALCIUM 500 + VIT D 200 TABLET PO SCH (08:44)
[2018-06-20] MEDS: CIPROFLOXACIN 500 MG TABLET PO SCH ×2 (08:45→20:04)
[2018-06-20] MEDS: DiltiaZEM CD 360 MG CAPSULE PO SCH (08:45)
[2018-06-20] MEDS: MetroNIDAZOLE 500 MG TABLET PO SCH ×2 (08:45→20:03)
[2018-06-20] MEDS: NS FLUSH BAG 500ml IV PRN (13:41)
[2018-06-20] MEDS: FERUMOXYTOL 510 MG in NS 100 ML IV SCH (14:09)
--- NOTE | 2018-06-20 15:01 | Progress Note ---
- Date 06/20/18 Subjective: Patient resting in bedside chair. -2.6 L fluid balance over past 24 hours. Swelling in bilateral lower extremities improved. No reported shortness of breath, no chest pain, no palpitations. Hemoglobin improved to 10.5. WBC count 13,000. Chemistry showed hemolyzed specimen with serum sodium of 131 and blood glucose of 322. Fingerstick blood sugars ranging from [id number]. Objective Vital signs: Temperature 98.5 F 06/20/18 14:09 Pulse Rate 75 06/20/18 14:09 Respiratory Rate 16 06/20/18 14:09 Blood Pressure 148/66 H 06/20/18 14:09 Pulse Oximetry 100 06/20/18 14:09 Height/Weight/BMI: Height 1.7 m Weight 85.3 kg Body Mass Index 29.3 - Additional findings Additional findings: General: Alert, awake, oriented x3. Not in acute distress. Head: Pupils equal, round, reactive to light and accommodation. Extraocular movements intact. Neck: No elevation in JVP. No pharyngeal erythema noted. Chest: The patient does not use accessory muscles for breathing. Lungs: Breath sounds audible on auscultation bilateral lung stroud. No wheezing , no rhonchi, no crepitations, no crackles. No pleural rub. CVS: S1, S2 heard on auscultation. Normal rate and rhythm. No murmur, no S3/S4 gallops. Abdomen: Soft, nontender, no distention. Bowel sounds appreciated on auscultation. Skin: No rashes, no induration, no erythema. Capillary refill less than 4 seconds. Extremities: 1+ pitting pedal edema bilateral lower extremities. No calf tenderness bilaterally. Palpable dorsalis pedis and posterior tibial pulses bilateral lower extremities. Results - Labs CBC & Chem 7: 06/20/18 09:36 06/20/18 09:36 Microbiology Results: Microbiology 06/15/18 14:38 Peripheral/Iv Start Blood Culture - Final No Growth After 5 Days 06/15/18 14:38 Peripheral/Iv Start Gram Stain - Final 06/15/18 14:38 Peripheral/Iv Start Blood Culture - Final Corynebacterium species 06/04/18 14:30 Peripheral/Iv Start Blood Culture - Final No Growth After 5 Days 06/04/18 14:30 Peripheral/Iv Start Blood Culture - Final No Growth After 5 Days Assessment and Plan (1) Atrial fibrillation with RVR Current visit: No Status: Chronic (2) Atherosclerotic heart disease of [place] coronary artery without angina pectoris Current visit: No Status: Chronic (3) Sepsis Current visit: Yes Status: Acute (4) LUIS (acute kidney injury) Current visit: Yes Status: Acute (5) Generalized weakness Current visit: Yes Status: Acute (6) Congestive heart failure Problem details: EF 50% with echo in January 2018 Current visit: Yes Status: Chronic (7) Tobacco abuse Current visit: Yes Status: Chronic Assessment and Plan: Assessment Sepsis - present on admission with WBC, tachy, low BP, high lactate, LUIS - likely GI source, resolved Leukocytosis on 06/15/2018 without significant change in left shift. Colitis seen on CT- ischemic versus infectious, likely infectious given clinical scenario Heme positive stoolstatus post EGD/colonoscopy performed by Dr. Gibson on Iron Deficiency anemia. Patient received IV iron and 1 unit of PRBC transfusion Hyponatremia, not POA Atrial fibrillation, rate controlled Thrombocytosis, not POA V-tach, [id number] beat run on 06/04/2018 -no recurrence on telemetry Elevated creatinine-resolved CAD with an EF of 50%, mild mitral regurgitation, mild aortic insufficiency and mild tricuspid regurgitation Hypertension Dyslipidemia CHF - chronic diastolic heart failure -EF 50%. Tentative plan to restart Bumex from tomorrow morning. Chronic respiratory failure - 3L at home Plan WBC count 13,000 today. Continue oral ciprofloxacin and Flagyl. Continue oral Protonix 40 mg before meals twice a day. Status post EGD, colonoscopy on 06/16/2018; colonoscopy showed evidence of ischemic colitis likely secondary to sepsis. Clinically, patient does not have any abdominal pain or tenderness to palpation and tolerating oral intake. Evidence of fluid overload, patient has -2.6 fluid balance overnight. Continue Bumex 2 mg every morning and 1 mg every afternoon. Will monitor intake and output, daily weights. Blood sugars elevated, fingerstick blood sugars ranging from [id number]. We will switch to high-dose insulin sliding scale with NovoLog 312 units as per protocol. Continue home medications eliquis 5 mg twice a day. Status post transfusion of 1 unit of PRBC on 06/17/2018, hemoglobin 10.5 this morning. Will monitor H&H. Will provide second dose of IV ferumoxytol today. For paroxysmal atrial fibrillation continue current dose of oral diltiazem and carvedilol. Case discussed with case supervisor, Ms. Bradshaw and tentative plans for discharge home tomorrow. DVT Prophylaxis: Eliquis GI Prophylaxis: Protonix Resuscitation Status: Full Code - Physician Narrative Narrative: Date: 06/20/18 Time: 1454 Hospital Course Summary Disclaimer: The visit summary below is not to be considered part of the above Progress Note. Hospital Course: 01/2018- med list from discharge on cardiology service New Apixaban [Eliquis] 5 mg PO BID #60 tab Aspirin *EC* [Ecotrin] 81 mg PO DAILY #30 tab DiltiaZEM CD [Cardizem CD 360 MG] 360 mg PO DAILY #30 cap Rosuvastatin [Crestor] 20 mg PO HS #30 tab DiltiaZEM CD [Cardizem CD 240 MG] 240 mg PO DAILY #30 cap Continue Calcium Carbonate/Vitamin D3 [Calcium 500-Vit D3 200 Tablet] 2 each PO DAILY Ranitidine [Zantac] 1 tab PO DAILY NIFEdipine [Nifedipine ER] 90 mg PO DAILY Loratadine 10 mg PO DAILY PRN PRN Reason: Allergy Symptoms Lisinopril [Prinivil] 40 mg PO DAILY Metformin HCl 1,000 mg PO WS Ferrous Sulfate 325 mg PO DAILY Carvedilol [Coreg] 1 tab PO BIDWM Bumetanide Tab [Bumex 1 mg Tab] 1 mg PO BID Metolazone [Zaroxolyn] 2.5 mg PO DAILY Aspirin 1 tab PO DAILY Cyclobenzaprine [Flexeril] 10 mg PO HS Potassium Chloride [K-Tab ER] 20 meq PO DAILY 06/04/18 Admit patient to ICU due to unstable vital signs just prior to transfer. Repeat basic labs,troponin, and lactate to find trend. Blood cultures pending in [facility] Abdomen/pelvis due to sepsis, LUQ pain, elevated lactate. Get occult stool, stool for c diff, and GI PCR panel of stool. Monitor h/h. Start Protonix IV BID in the event of an UGIB and avoid blood thinners for now. Uncertain if patient is taking the Eliquis that was prescribed to him in January, as it's not in his medication bag - would hold acutely anyway. Give IVF and monitor UOP and creatinine in morning. UA was non-infectious in [facility]. Check CPK. Continue diltiazem for rate control - give 60mg oral q6hrs as we monitor BP closely. Check TSH Hold nifedipine, lisinopril, Coreg, Bumex, and metolazone for now. Need to reconcile home meds with pharmacy as patient's medication bag doesn't match the records. 06/05/18 WBC trended up overnight, but afebrile. Blood cultures pending Lactate trended down - was 4.[address] [facility] [address] Abdomen/pelvis shows colitis - likely infectious given clinical scenario. Occult stool positive - likely due to colitis - will continue BID PPI however for now and hold Eliquis. Restart pending clinical course. On Zosyn and Flagyl - change to Rocephin and Flagyl today. C diff negative. Need to ensure patient's med list is correct tomorrow with [facility] [place] pharmacy as his list doesn't match what's in his bag of medications. Most notably Eliquis. Continue diltiazem for rate control - change back to once daily dosing in the morning. Restart nifedipine and Coreg today. D/C IVF. Continue to hold Bumex, lisinopril, and metolazone for now - likely need to restart soon. Transfer to floor, up out of bed. 06/06/18 WBC improved to 15.8. Cont metronidazole/Rocephin. Hgb down to 8.2 but stool frequency is decreasing. Cont to hold ASA/Eliquis. Cont PPI. Renal function stable - cr 1.0. Weight is climbing - resume Bumex but will cont to hold metolazone and lisinopril. Resume Coreg. Continue Cardizem and nifedipine Increase activity - consult pt/ot 06/07/18 WBC improved to 15.1. Cont metronidazole/Rocephin. Hgb 8.0 - Cont to hold ASA/Eliquis. Cont PPI. Increased abdominal distention, hypoactive bowel sounds - concerned for ileus. Start bowel regimen. Na down to 135; renal functions with increase, BUN 23 and creatinine 1.4; weight continues to trend up. 86.5 --> 90.7 kg. Requiring 5L of oxygen to maintain saturations. Bumex resumed yesterday; metolazone and lisinopril remain on hold. Yesterday's CXR personally reviewed - stable but clinically concerned about failure. Will repeat CXR in am. 06/08/18 WBC stable at 15. Blood cultures remains negative. Cont metronidazole/Rocephin. Abd Xray revels distension. Asked nursing staff to give Dulcolax sup. Last BM 06/05. Increased oxygen demands up to 6 liters. Noted weight is up a proximal 27 pounds since admission. Resumed Bumex 1 milligram twice a day for diuresing. NA continues to trend down. Noted PO intake yesterday over 2200ML. Will add oral fluid restriction of 1800ML/24hrs. 06/09/18 Cont metronidazole/Rocephin; WBC trending down; 13.7. O2 demands slightly improved from yest but noted increased peripheral edema along with fluid pos status; currently on home dose Bumex 1 mg BID but Hctz has not been resumed. With hyponatremia, would prefer to use loop diuretic -- will give an extra 1 mg of Bumex tomorrow am for diuresis. Will also give KDur 20 mEq x1 in the am. Continue fluid restriction. Hgb stable at 8.3 -- consider resuming at least ASA; consider restarting Eliquis soon. Resume cardizem 360 mg; pt has been going in/out of a-fib. 06/10/18 Obtain venous Doppler of right upper ext to rule out DVT - Negative. Monitor erythema to right arm. Cont Rocephin. Discontinued Flagyl. Continues to have edema and weight continues to trend up. Will change Bumex to 1 mg IV- Monitor output. Will resume home Eliquis as recommended by cardiology team. Monitor for bleeding. Hgb stable at 8.3 Monitor BP- Continue on Cardizem 360mg daily. He does not need Nifedipine as long as BP is controlled. Initiated Solu-Medrol to help breathing - 125mg x1, then 62.5mg q 6 hours. 06/11/18 Continue to monitor erythema of the right antecubital as well as distal edema. Venous Doppler negative for DVT Into need is on Bumex twice a day Aird weight continues to trend up. Check chest x-ray today. Was started on Solu-Medrol to help with breathing last evening Continues on IV Rocephin daily Monitor BP- Continue on Cardizem 360mg daily. He does not need Nifedipine as long as BP is controlled. Hemoglobin remains stable, monitor for evidence of bleeding. Given resume of home Eliquis 06/12/18 White count has increased to 19,000, however, the patient remains on prednisone 30 mg daily. Blood cultures are negative after 5 days. Continue on Rocephin, day #9. DC Metronidazole. Hemoglobin has drifted down to 7.7, but the patient has been asymptomatic and he denies any hematochezia. Iron studies are pending as is Vitamin B12. He continues on Eliquis for A. fib. Platelets are increased at 425, monitor for now. Sodium is low but stable at 130. Renal function is stable. Weight has gone down by 3 kg despite having a fluid positive balance. He remains on 4 L of oxygen. Will discuss diuretic management with Dr. Angelo. Consider reviewing with Dr. Bush, front office agent for Dr. Grider, prior to DC. 06/13/18 Appreciated surgical consultation by Dr Gibson We discussed diet- He may have a soft diet today with 1/2 portions only. Nursing staff notified. Will change to clear liquids with no diet tonight at [place], followed by NPO tomorrow night 06/16 at pa. Eliquis remains on hold Planned to upper and lower scope 06/16. Continue to follow blood counts carefully- Hgb 7.4. GI panel was negative yesterday. Stool for occult blood is positive Bumex 1 mg BID for ongoing diuresing Antibiotics completed Case discussed with attending, Dr Angelo 06/14/2018 Appreciated surgical consultation by Dr Gibson We discussed diet- He may have a soft diet today with 1/2 portions only. Nursing staff notified. Will change to clear liquids with no diet tonight at [facility], followed by NPO tomorrow night 06/16 at [facility]. Eliquis remains on hold Planned to upper and lower scope 06/16. Continue to follow blood counts carefully- Hgb 7.4. GI panel was negative yesterday. Stool for occult blood is positive Bumex 1 mg BID for ongoing diuresing Antibiotics completed 06/15/2018 The patient was found to have a white count of 28 today from 19 yesterday. Bands are 4. He is afebrile. He feels well. Lactate was obtained and was mildly elevated at 2.5. Pro-calcitonin was normal. Chest x-ray showed improved aeration of the right lower lobe. UA was negative. He had a recent GI panel for diarrhea which was negative. He was diuresed significantly yesterday and may just be a little intravascularly dry. We'll repeat lactate and draw blood cultures this afternoon. Hold oral Bumex today. Can decide tomorrow whether or not it should be resumed The patient was previously on Rocephin and Flagyl for colitis but these were discontinued on 06/12/2018. Eliquis is on hold for heme positive stools. Plan for EGD and colonoscopy tomorrow with Dr. Gibson. Regarding A. fib with RVR, cardiology was notified. Rate has slowed down his usual morning diltiazem and carvedilol Patient had been on steroids for acute respiratory failure, prednisone will be discontinued after this morning's dose. At 3:35 PM-repeat lactate after 500 cc bolus was 4.2. I did reexamine the patient and he states he feels just fine. He is finishing up his bowel prep in preparation for EGD and colonoscopy tomorrow. Recheck vitals now show a picture of 98, heart rate 95, respirations 16, blood pressure 141/72, O2 sat 97% on 3 L. He denies feeling feverish or chilled. He denies any sinus congestion, sore throat or cough. He denies increased shortness of breath. He denies any abdominal pain or cramping. He has not had a bowel movement yet with the bowel prep. He denies any dysuria. His urinalysis was was negative for signs of infection. Chest x-ray was improving. With increase in lactate and elevated white count, blood cultures were drawn and will start Rocephin 1 g IV daily empirically. Will give 1 L of fluid over 2 hours. He does not appear to be in septic shock. He appears about the best that I've seen him during this hospital course. I am not giving the 30 mL's per kilogram of IV fluid because he does not appear septic and he already suffers from mild fluid overload. Recheck basic metabolic and lactate at 6:30 this evening. Vitals every hour for now. The patient will let us know if he feel poorly. 06/16/2018 WBC count remains elevated at 27,400. Lactic acid which was 4.1 yesterday improved to 1.2 today. DC IV Rocephin. Patient on IV Zosyn. Status post EGD, colonoscopy on 06/16/2018; colonoscopy showed evidence of ischemic colitis likely secondary to sepsis. Clinically, patient does not have any abdominal pain or tenderness to palpation and tolerating oral intake. Plan to restart patient on Bumex 1 mg by mouth twice a day from tomorrow. Will monitor intake and output, daily weights. Pro-calcitonin was normal. Chest x-ray showed improved aeration of the right lower lobe. UA was negative. He had a recent GI panel 06/13/2018 for diarrhea which was negative. The patient was previously on Rocephin and Flagyl for colitis but these were discontinued on 06/12/2018. Eliquis is on hold for heme positive stools. Case discussed with Dr. Gibson, plan to restart home medication eliquis from tomorrow provided H&H stable. Regarding A. fib with RVR, cardiology was notified. Rate has slowed down his usual morning diltiazem and carvedilol
[2018-06-20] MEDS: ROSUVASTATIN 20 MG TABLET PO SCH (20:03)
[2018-06-21] MEDS: PANTOPRAZOLE 40 MG TABLET PO SCH ×2 (06:44→17:06)
[2018-06-21] MEDS: INSULIN ASPART 100unit/ml INJECTION SQ PRN ×3 (06:45→22:22)
[2018-06-21] MEDS: BUDESONIDE INH.SOLN 0.5mg/2ml NEB AEROSOL SCH ×2 (07:08→21:24)
[2018-06-21] MEDS: ALBUTEROL/IPRATROPIUM 2.5mg-0.5mg/3ml NEB AEROSOL SCH ×4 (07:08→21:24)
[2018-06-21] MEDS: DiltiaZEM CD 360 MG CAPSULE PO SCH ×2 (07:50→08:35)
[2018-06-21] MEDS: MetroNIDAZOLE 500 MG TABLET PO SCH ×3 (07:50→20:39)
[2018-06-21] MEDS: APIXABAN 5 MG TABLET PO SCH ×3 (07:51→20:39)
[2018-06-21] MEDS: BUMETANIDE 1 MG TABLET PO SCH ×2 (07:51→08:35)
[2018-06-21] MEDS: CIPROFLOXACIN 500 MG TABLET PO SCH ×3 (07:52→20:39)
[2018-06-21] MEDS: CARVEDILOL 3.125 MG TABLET PO SCH (07:52)
[2018-06-21] MEDS: CALCIUM 500 + VIT D 200 TABLET PO SCH ×2 (07:52→08:35)
[2018-06-21] MEDS ORDERED: DiltiaZEM 25 MG/5 ML INJECTION IVP ONE (09:18)
[2018-06-21] MEDS: SALINE FLUSH 10ml SYRINGE IVF PRN (09:34)
[2018-06-21] MEDS ORDERED: NS 250 ML IV SCH (09:45)
--- NOTE | 2018-06-21 14:14 | Cardiology Progress Note ---
Subjective Principal diagnosis: A Fib Interval history: Barry is seen in follow up for A Fib. Rate is now controlled with additional Cardizem 15mg IV. He has had multiple short runs of NSVT today which are asymptomatic. He denies chest pain, palpitations, dyspnea or other complaints, states he just wants to go home. Exam Vital signs: Temperature 97.5 F 06/21/18 07:33 Pulse Rate 184 H 06/21/18 12:01 Respiratory Rate 18 06/21/18 11:49 Blood Pressure 146/76 H 06/21/18 11:49 Pulse Oximetry 95 06/21/18 11:49 Inpatient Medications: Generic Name Dose Route Start Last Admin Trade Name Freq PRN Reason Stop Dose Admin Acetaminophen 650 mg 06/04/18 16:09 Tylenol PO Q5H PRN Discomfort Hydrocodone Bitart/Acetaminophen 1 tab 06/04/18 16:09 [place] 7.5/325 PO Q6H PRN Pain Albuterol/Ipratropium 3 ml 06/04/18 17:09 06/07/18 23:16 Duoneb AEROSOL 3 ml RTQID PRN Administration Albuterol/Ipratropium 3 ml 06/08/18 19:00 06/21/18 10:21 Duoneb AEROSOL 3 ml RTQID VALE Administration Apixaban 5 mg 06/10/18 21:00 06/21/18 08:35 Eliquis PO Not Given BID VALE Bisacodyl 10 mg 06/07/18 11:34 06/08/18 14:15 Dulcolax RECTALLY 10 mg DAILY PRN Administration Constipation Budesonide 0.5 mg 06/08/18 19:00 06/21/18 07:08 Pulmicort Inhalation AEROSOL 0.5 mg RTBID VALE Administration Calcium/Vitamin D 2 tab 06/05/18 09:00 06/21/18 08:35 Os Chris-D 500 PO Not Given DAILY VALE Carvedilol 3.125 mg 06/05/18 08:28 06/21/18 07:52 Coreg PO 3.125 mg BIDWM VALE Administration Ciprofloxacin 500 mg 06/19/18 21:00 06/21/18 08:35 Cipro 500 Mg PO Not Given Q12HR VALE Dextrose 20 ml 06/11/18 07:43 D50%W IVP PRN PRN Hypoglycemia Diltiazem HCl 360 mg 06/10/18 09:00 06/21/18 08:35 Cardizem Cd 360 Mg PO Not Given DAILY VALE Glucose 37.5 gm 06/11/18 07:43 Glutose 15 PO PRN PRN Hypoglycemia Insulin Aspart 3 - 12 unit 06/20/18 14:59 06/21/18 11:09 Novolog SQ 12 unit SS PRN Administration Hyperglycemia Protocol Loratadine 10 mg 06/04/18 17:09 06/13/18 10:07 Claritin PO 10 mg DAILY PRN Administration Allergy symptoms Metronidazole 500 mg 06/19/18 21:00 06/21/18 08:35 Flagyl PO Not Given BID VALE Morphine Sulfate 2 mg 06/04/18 16:09 Morphine Sulfate Inj IVP Q2H PRN Pain Nicotine 14 mg 06/04/18 16:09 Nicoderm TD DAILY PRN Nicotine 1 removal 06/05/18 09:00 Nicotine Patch Removal TD DAILY PRN Ondansetron HCl 4 mg 06/04/18 16:09 Zofran IVP Q6H PRN Nausea Pantoprazole Sodium 40 mg 06/19/18 17:00 06/21/18 06:44 Protonix Tab PO 40 mg ACBID VALE Administration Rosuvastatin Calcium 20 mg 06/04/18 21:00 06/20/18 20:03 Crestor PO 20 mg HS VALE Administration Sodium Chloride 10 - 80 ml 06/10/18 16:10 06/21/18 09:34 Iv Flush IVF 20 ml PRN PRN Administration [place] Sodium Chloride 500 ml 06/13/18 10:21 06/20/18 13:41 Normal Saline IV 500 ml PRN PRN Administration Sodium Chloride 500 ml 06/17/18 11:56 Normal Saline IV PRN PRN Discontinued Medications Generic Name Dose Route Start Last Admin Trade Name Freq PRN Reason Stop Dose Admin Bisacodyl 20 mg 06/15/18 10:00 06/15/18 09:36 Dulcolax PO 06/15/18 10:01 20 mg O ONE Administration Bumetanide 1 mg 06/06/18 21:00 06/10/18 08:33 Bumex 1 Mg Tab PO 1 mg BID VALE Administration Bumetanide 1 mg 06/10/18 09:00 06/10/18 08:33 Bumex 1 Mg Tab PO 06/10/18 09:01 1 mg DAILY ONE Administration Bumetanide 1 mg 06/11/18 07:00 06/13/18 10:54 Bumex 1 Mg/4 Ml Inj. IVP 1 mg 0700,1700 VALE Administration Bumetanide 1 mg 06/14/18 09:00 06/19/18 08:27 Bumex 1 Mg Tab PO 1 mg [id number] VALE Administration Bumetanide 1 mg 06/15/18 09:14 Bumex 1 Mg/4 Ml Inj. IVP 0914 VALE Bumetanide 2 mg 06/20/18 09:00 06/21/18 08:35 Bumex 1 Mg Tab PO Not Given DAILY VALE Bumetanide 1 mg 06/19/18 14:00 06/20/18 13:41 Bumex 1 Mg Tab PO 1 mg 1400 VALE Administration Diltiazem HCl 60 mg 06/04/18 21:00 06/09/18 20:41 Cardizem Ir 60 Mg Tab PO 60 mg ACHS VALE Administration Diltiazem HCl 20 mg 06/17/18 11:36 06/17/18 12:14 Cardizem 25 Mg Inj IVP 06/17/18 11:37 20 mg O ONE Administration Diltiazem HCl 15 mg 06/21/18 09:18 06/21/18 09:34 Cardizem 25 Mg Inj IVP 06/21/18 09:19 15 mg O ONE Administration Furosemide 20 mg 06/05/18 18:51 06/05/18 18:59 Lasix 20 Mg/2 Ml IVP 06/05/18 18:52 Not Given ONCE ONE Furosemide 20 mg 06/05/18 20:00 06/05/18 19:33 Lasix 20 Mg/2 Ml IVP 06/05/18 20:01 20 mg ONCE ONE Administration Furosemide 20 mg 06/17/18 12:02 06/17/18 14:06 Lasix 20 Mg/2 Ml IVP 06/17/18 12:03 20 mg ONCE ONE Administration Lactated Ringer's 1,000 mls @ 100 mls/hr 06/04/18 16:15 06/05/18 16:04 Lactated Ringers IV Not Given .Q10H VALE Piperacillin Sod/Tazobactam 100 mls @ 200 mls/hr 06/04/18 17:15 06/05/18 06: 00 Sod 3.375 gm/ Sodium Chloride IV Infused Q6H VALE Infusion Metronidazole/Sodium Chloride 500 mg in 100 mls @ 100 mls/hr 06/04/18 18:45 06/12/18 12:05 Flagyl Iv Premix IV 100 mls/hr Q8H VALE Administration Piperacillin Sod/Tazobactam 100 mls @ 200 mls/hr 06/05/18 11:00 06/05/18 12: 28 Sod 3.375 gm/ Dextrose IV Infused Q6H VALE Infusion Ceftriaxone Sodium 1 g/ Sodium 100 mls @ 200 mls/hr 06/05/18 12:45 06/06/18 13:12 Chloride IV Infused Q24H VALE Infusion Ceftriaxone Sodium 1 g/ 100 mls @ 200 mls/hr 06/07/18 12:45 06/12/18 15:09 Dextrose IV Infused Q24H VALE Infusion Ferumoxytol 510 mg/ Sodium 117 mls @ 234 mls/hr 06/13/18 13:15 Chloride IV 06/13/18 13:44 O ONE Ferumoxytol 510 mg/ Sodium 117 mls @ 234 mls/hr 06/13/18 13:15 06/20/18 14:40 Chloride IV 06/20/18 13:44 Infused Q7D VALE Infusion Sodium Chloride 500 mls @ 500 mls/hr 06/15/18 12:04 06/15/18 14:07 Normal Saline IV 06/15/18 13:03 Infused .Q1H ONE Infusion Sodium Chloride 1,000 mls @ 500 mls/hr 06/15/18 15:33 06/15/18 18:35 Normal Saline IV 06/15/18 17:32 Infused .Q2H ONE Infusion Ceftriaxone Sodium 1 g/ 100 mls @ 200 mls/hr 06/15/18 15:45 06/15/18 17:33 Dextrose IV Infused Q24H VALE Infusion Lactated Ringer's 1,000 mls @ 50 mls/hr 06/17/18 10:42 06/18/18 09:45 Lactated Ringers IV Not Given .Q20H VALE Piperacillin Sod/Tazobactam 100 mls @ 200 mls/hr 06/16/18 12:51 06/16/18 14: 35 Sod 3.375 gm/ Sodium Chloride IV Not Given Q6H VALE Piperacillin Sod/Tazobactam 100 mls @ 200 mls/hr 06/16/18 15:00 06/19/18 09: 05 Sod 3.375 gm/ Sodium Chloride IV Infused Q6HR VALE Infusion Sodium Chloride 250 mls @ 100 mls/hr 06/21/18 09:45 06/21/18 12:32 Normal Saline IV 06/21/18 12:00 Infused .Q2H30M VALE Infusion Insulin Aspart 1 - 5 unit 06/11/18 07:43 06/13/18 15:20 Novolog SQ 4 unit SS PRN Administration Hyperglycemia Protocol Insulin Aspart 2 - 8 unit 06/13/18 16:29 06/20/18 12:15 Novolog SQ 3 unit SS PRN Administration Hyperglycemia Protocol Iron Dextran 1 each 06/13/18 10:53 06/13/18 15:03 Pharmacy Consult - Iron 06/13/18 10:54 1 each O ONE Administration Magnesium Hydroxide 30 ml 06/07/18 11:34 06/08/18 14:20 Mom PO 30 ml DAILY PRN Administration Constipation Methylprednisolone Sodium Succinate 125 mg 06/10/18 11:15 06/10/18 11:39 Solu-Medrol IVP 06/10/18 11:16 125 mg ONE TIME ONE Administration Methylprednisolone Sodium Succinate 62.5 mg 06/10/18 15:00 06/11/18 15:42 Solu-Medrol IVP 62.5 mg Q6HR VALE Administration Metolazone 5 mg 06/19/18 08:00 06/19/18 08:26 Zaroxolyn PO 06/19/18 08:01 5 mg O ONE Administration Nifedipine 90 mg 06/05/18 09:00 06/09/18 08:41 Procardia Xl PO 90 mg DAILY VALE Administration Pantoprazole Sodium 40 mg 06/04/18 21:00 06/06/18 08:42 Protonix Iv IVP 40 mg BID VALE Administration Pantoprazole Sodium 40 mg 06/06/18 17:00 06/13/18 06:05 Protonix Tab PO 40 mg ACBID VALE Administration Pantoprazole Sodium 40 mg 06/13/18 21:00 06/19/18 08:25 Protonix Iv IVP 40 mg BID VALE Administration Pharmacy Consult 1 each 06/07/18 16:33 Pharmacy Consult - Fall Risk 06/07/18 16:34 ONE TIME ONE Pharmacy Consult 1 each 06/16/18 16:48 Pharmacy Consult - Fall Risk 06/16/18 16:49 ONE TIME ONE Polyethylene Glycol 17 gm 06/07/18 11:45 06/11/18 09:21 Miralax PO Not Given DAILY VALE Polyethylene Glycol 238 gm 06/15/18 13:00 06/15/18 12:29 Miralax PO 06/15/18 13:01 238 gm O ONE Administration Potassium Chloride 40 meq 06/08/18 08:34 06/08/18 08:41 K-Dur 20 Meq Tablet PO 06/08/18 08:35 40 meq O ONE Administration Potassium Chloride 20 meq 06/10/18 09:00 06/10/18 08:33 K-Dur 20 Meq Tablet PO 06/10/18 09:01 20 meq O ONE Administration Potassium Chloride 40 meq 06/17/18 12:13 06/17/18 14:06 K-Dur 20 Meq Tablet PO 06/17/18 12:14 40 meq O ONE Administration Potassium Chloride 40 meq 06/21/18 09:05 06/21/18 09:14 K-Dur 20 Meq Tablet PO 06/21/18 09:06 40 meq O ONE Administration Prednisone 30 mg 06/12/18 08:00 06/13/18 10:07 Deltasone 10 Mg PO 30 mg WB VALE Administration Prednisone 20 mg 06/14/18 08:00 06/15/18 08:24 Deltasone 20 Mg PO 06/15/18 08:01 20 mg WB VALE Administration Senna/Docusate Sodium 1 tab 06/07/18 11:35 06/11/18 09:20 Senna Plus Tablet PO Not Given BID VALE Sodium Chloride 500 ml 06/09/18 18:18 06/16/18 14:20 Normal Saline IV 500 ml PRN PRN Administration Sodium Chloride 500 ml 06/10/18 16:10 Normal Saline IV PRN PRN - Constitutional no acute distress, well nourished, cooperative - Routine HEENT Exam Head: Present: normocephalic ENT: Present: mucous membranes moist - Routine Neck Exam Absent: JVD, carotid bruit - Routine Chest/Breast/Axilla Exam Chest wall: Absent: tenderness - Routine Respiratory Exam Present: CTA bilaterally. Absent: dyspnea, rales, wheezes - Routine Cardiovascular Exam Present: no murmur, irregular rhythm - Routine Abdominal Exam Present: soft, non tender - Routine Extremities Exam Present: no edema - Routine Skin Exam Present: intact, dry, warm - Routine Neurological Exam Present: alert, oriented X3 - Routine Psychiatric Exam Present: normal affect, normal thought process Results 06/21/18 04:00 06/21/18 04:00 CBC 06/21/18 Range/Units 04:00 WBC 11.4 H (4.5-11.0) T/MM3 RBC 4.35 L (4.50-5.90) M/MM3 Hgb 11.3 L (13.5-17.5) GM/DL Hct 35.8 L (41-53) % Plt Count 290 (130-400) T/MM3 Neut # (Auto) 8.7 H (1.8-7.7) T/MM3 Lymph # (Auto) 1.4 (1-4.8) T/MM3 [place] # (Auto) 1.2 H (0-0.8) T/MM3 Eos # (Auto) 0.1 (0-0.5) T/MM3 Baso # (Auto) 0.0 (0-0.2) T/MM3 Comprehensive Metabolic Panel 06/21/18 Range/Units 04:00 Sodium 135 L (136-146) MEQ/L Potassium 3.1 L D (3.6-5) MEQ/L Chloride 90 L (98-107) MEQ/L Carbon Dioxide 32 H (22-30) MEQ/L BUN 10.0 (9-20) MG/DL Creatinine 1.0 D (0.8-1.5) mg/dL Glucose 177 H (75-110) MG/DL Calcium 8.9 (8.4-10.2) MG/DL Intake and Output 06/20/18 06/21/18 06/21/18 22:59 06:59 14:59 Intake Total 640 / 640 400 / 400 653 / 653 Output Total 1775 / 1775 650 / 650 850 / 850 Balance -1135 / -1135 -250 / -250 -197 / -197 Intake: IV 250 / 250 Ns 250 ml @ 100 mls/hr IV . 250 / 250 Q2H30M [facility] Rx#:[id number] Oral 640 / 640 400 / 400 403 / 403 Output: Urine 177 / 1775 650 / 650 850 / 850 Other: Urine Appearance Clear Clear Clear Urine Color Pale Dark Yellow Yellow Urine Odor Normal Normal Normal Stool Characteristics Normal for Patient Stool Color Brown Stool Consistency Formed Size of Bowel Movement Small # Voids 1 Weight 179 lb 3.773 oz Patient Weight 06/22/18 06:59 Weight 179 lb 3.773 oz - EKG Interpretation EKG shows: atrial fibrillation (with RVR) Assessment and Plan - Assessment and Plan (1) GI bleed Current visit: Yes Status: Acute (2) Generalized weakness Current visit: Yes Status: Acute (3) NSVT (nonsustained ventricular tachycardia) Current visit: Yes Status: Acute (4) Paroxysmal atrial fibrillation Current visit: Yes Status: Chronic (5) Essential (primary) hypertension Current visit: No Status: Chronic (6) Mixed hyperlipidemia Current visit: No Status: Chronic (7) Atherosclerotic heart disease of tribe coronary artery without angina pectoris Current visit: No Status: Chronic (8) Type 2 diabetes mellitus without complications Current visit: No Status: Chronic - Assessment and Plan 06/13/18 GI bleed Current visit: Yes Status: Acute - Hgb 7.2 today - Hold Eliquis - May have endoscopy as needed, procedure carries low cardiac risk. Generalized weakness Current visit: Yes Status: Acute NSVT (nonsustained ventricular tachycardia) Current visit: Yes Status: Acute -6 beat run on 06/04/2018 -no recurrence on telemetry - Continue to monitor Paroxysmal atrial fibrillation Current visit: Yes Status: Chronic - Cardizem 360mg daily for rate control - Hold Eliquis due to GI bleed Essential (primary) hypertension Current visit: No Status: Chronic - On Coreg, diltiazem and Bumex po - off of hydrochlorothiazide, lisinopril, nifedipine. Mixed hyperlipidemia Current visit: No Status: Chronic - Takes Rosuvastatin Atherosclerotic heart disease of tribe coronary artery without angina pectoris Current visit: No Status: Chronic - [facility] 01/2018: EF 65%, LAD 50%, RCA 40%, medical management - Continue BB, Statin, holding Aspirin due to GI Bleed Type 2 diabetes mellitus without complications Current visit: No Status: Chronic - per attending Thank you for allowing us to participate in the care of this patient. 06/17/18 Variable heart rate, likely due to anemia, patient is asymptomatic - Transfuse per hospitalist, mild CAD, goal HGB 8-9 - Continue current Cardizem 360mg, and Coreg 3.125 - Continue to monitor telemetry I saw the patient independent of Dr. Bush, however we discussed findings and agree on plan of care 06/21/18 AFib with RVR this am - Gave Cardizem 15mg IV x1 - Rate is now controlled, increase Coreg to 6.25mg this evening. - multiple short runs of NSVT today which are asymptomatic. - K+ 3.1 today, replaced with 40meq KCL, repeat level at 1500 - HC last January showed only mild CAD, likely due to electrolytes - continue to monitor telemetry Hospital Course Summary Disclaimer: The visit summary below is not to be considered part of the above Progress Note. Hospital Course: 01/2018- med list from discharge on cardiology service New Apixaban [Eliquis] 5 mg PO BID #60 tab Aspirin *EC* [Ecotrin] 81 mg PO DAILY #30 tab DiltiaZEM CD [Cardizem CD 360 MG] 360 mg PO DAILY #30 cap Rosuvastatin [Crestor] 20 mg PO HS #30 tab DiltiaZEM CD [Cardizem CD 240 MG] 240 mg PO DAILY #30 cap Continue Calcium Carbonate/Vitamin D3 [Calcium 500-Vit D3 200 Tablet] 2 each PO DAILY Ranitidine [Zantac] 1 tab PO DAILY NIFEdipine [Nifedipine ER] 90 mg PO DAILY Loratadine 10 mg PO DAILY PRN PRN Reason: Allergy Symptoms Lisinopril [Prinivil] 40 mg PO DAILY Metformin HCl 1,000 mg PO WS Ferrous Sulfate 325 mg PO DAILY Carvedilol [Coreg] 1 tab PO BIDWM Bumetanide Tab [Bumex 1 mg Tab] 1 mg PO BID Metolazone [Zaroxolyn] 2.5 mg PO DAILY Aspirin 1 tab PO DAILY Cyclobenzaprine [Flexeril] 10 mg PO HS Potassium Chloride [K-Tab ER] 20 meq PO DAILY 06/04/18 Admit patient to ICU due to unstable vital signs just prior to transfer. Repeat basic labs,troponin, and lactate to find trend. Blood cultures pending in [place] [place] Abdomen/pelvis due to sepsis, LUQ pain, elevated lactate. Get occult stool, stool for c diff, and GI PCR panel of stool. Monitor h/h. Start Protonix IV BID in the event of an UGIB and avoid blood thinners for now. Uncertain if patient is taking the Eliquis that was prescribed to him in January, as it's not in his medication bag - would hold acutely anyway. Give IVF and monitor UOP and creatinine in morning. UA was non-infectious in [place]. Check CPK. Continue diltiazem for rate control - give 60mg oral q6hrs as we monitor BP closely. Check TSH Hold nifedipine, lisinopril, Coreg, Bumex, and metolazone for now. Need to reconcile home meds with pharmacy as patient's medication bag doesn't match the records. 06/05/18 WBC trended up overnight, but afebrile. Blood cultures pending Lactate trended down - was 4.[address] Abdomen/pelvis shows colitis - likely infectious given clinical scenario. Occult stool positive - likely due to colitis - will continue BID PPI however for now and hold Eliquis. Restart pending clinical course. On Zosyn and Flagyl - change to Rocephin and Flagyl today. C diff negative. Need to ensure patient's med list is correct tomorrow with [place] pharmacy as his list doesn't match what's in his bag of medications. Most notably Eliquis. Continue diltiazem for rate control - change back to once daily dosing in the morning. Restart nifedipine and Coreg today. D/C IVF. Continue to hold Bumex, lisinopril, and metolazone for now - likely need to restart soon. Transfer to floor, up out of bed. 06/06/18 WBC improved to 15.8. Cont metronidazole/Rocephin. Hgb down to 8.2 but stool frequency is decreasing. Cont to hold ASA/Eliquis. Cont PPI. Renal function stable - cr 1.0. Weight is climbing - resume Bumex but will cont to hold metolazone and lisinopril. Resume Coreg. Continue Cardizem and nifedipine Increase activity - consult pt/ot 06/07/18 WBC improved to 15.1. Cont metronidazole/Rocephin. Hgb 8.0 - Cont to hold ASA/Eliquis. Cont PPI. Increased abdominal distention, hypoactive bowel sounds - concerned for ileus. Start bowel regimen. Na down to 135; renal functions with increase, BUN 23 and creatinine 1.4; weight continues to trend up. 86.5 --> 90.7 kg. Requiring 5L of oxygen to maintain saturations. Bumex resumed yesterday; metolazone and lisinopril remain on hold. Yesterday's CXR personally reviewed - stable but clinically concerned about failure. Will repeat CXR in am. 06/08/18 WBC stable at 15. Blood cultures remains negative. Cont metronidazole/Rocephin. Abd Xray revels distension. Asked nursing staff to give Dulcolax sup. Last BM 06/05. Increased oxygen demands up to 6 liters. Noted weight is up a proximal 27 pounds since admission. Resumed Bumex 1 milligram twice a day for diuresing. NA continues to trend down. Noted PO intake yesterday over 2200ML. Will add oral fluid restriction of 1800ML/24hrs. 06/09/18 Cont metronidazole/Rocephin; WBC trending down; 13.7. O2 demands slightly improved from yest but noted increased peripheral edema along with fluid pos status; currently on home dose Bumex 1 mg BID but Hctz has not been resumed. With hyponatremia, would prefer to use loop diuretic -- will give an extra 1 mg of Bumex tomorrow am for diuresis. Will also give KDur 20 mEq x1 in the am. Continue fluid restriction. Hgb stable at 8.3 -- consider resuming at least ASA; consider restarting Eliquis soon. Resume cardizem 360 mg; pt has been going in/out of a-fib. 06/10/18 Obtain venous Doppler of right upper ext to rule out DVT - Negative. Monitor erythema to right arm. Cont Rocephin. Discontinued Flagyl. Continues to have edema and weight continues to trend up. Will change Bumex to 1 mg IV- Monitor output. Will resume home Eliquis as recommended by cardiology team. Monitor for bleeding. Hgb stable at 8.3 Monitor BP- Continue on Cardizem 360mg daily. He does not need Nifedipine as long as BP is controlled. Initiated Solu-Medrol to help breathing - 125mg x1, then 62.5mg q 6 hours. 06/11/18 Continue to monitor erythema of the right antecubital as well as distal edema. Venous Doppler negative for DVT Into need is on Bumex twice a day Aird weight continues to trend up. Check chest x-ray today. Was started on Solu-Medrol to help with breathing last evening Continues on IV Rocephin daily Monitor BP- Continue on Cardizem 360mg daily. He does not need Nifedipine as long as BP is controlled. Hemoglobin remains stable, monitor for evidence of bleeding. Given resume of home Eliquis 06/12/18 White count has increased to 19,000, however, the patient remains on prednisone 30 mg daily. Blood cultures are negative after 5 days. Continue on Rocephin, day #9. DC Metronidazole. Hemoglobin has drifted down to 7.7, but the patient has been asymptomatic and he denies any hematochezia. Iron studies are pending as is Vitamin B12. He continues on Eliquis for A. fib. Platelets are increased at 425, monitor for now. Sodium is low but stable at 130. Renal function is stable. Weight has gone down by 3 kg despite having a fluid positive balance. He remains on 4 L of oxygen. Will discuss diuretic management with Dr. Angelo. Consider reviewing with Dr. Bush, community health education coordinator for Dr. Grider, prior to DC. 06/13/18 Appreciated surgical consultation by Dr Gibson We discussed diet- He may have a soft diet today with 1/2 portions only. Nursing staff notified. Will change to clear liquids with no diet tonight at [place], followed by NPO tomorrow night 06/16 at [place]. Eliquis remains on hold Planned to upper and lower scope 06/16. Continue to follow blood counts carefully- Hgb 7.4. GI panel was negative yesterday. Stool for occult blood is positive Bumex 1 mg BID for ongoing diuresing Antibiotics completed Case discussed with attending, Dr Angelo 06/14/2018 Appreciated surgical consultation by Dr Gibson We discussed diet- He may have a soft diet today with 1/2 portions only. Nursing staff notified. Will change to clear liquids with no diet tonight at [place], followed by NPO tomorrow night 06/16 at [place]. Eliquis remains on hold Planned to upper and lower scope 06/16. Continue to follow blood counts carefully- Hgb 7.4. GI panel was negative yesterday. Stool for occult blood is positive Bumex 1 mg BID for ongoing diuresing Antibiotics completed 06/15/2018 The patient was found to have a white count of 28 today from 19 yesterday. Bands are 4. He is afebrile. He feels well. Lactate was obtained and was mildly elevated at 2.5. Pro-calcitonin was normal. Chest x-ray showed improved aeration of the right lower lobe. UA was negative. He had a recent GI panel 16 for diarrhea which was negative. He was diuresed significantly yesterday and may just be a little intravascularly dry. We'll repeat lactate and draw blood cultures this afternoon. Hold oral Bumex today. Can decide tomorrow whether or not it should be resumed The patient was previously on Rocephin and Flagyl for colitis but these were discontinued on 06/12/2018. Eliquis is on hold for heme positive stools. Plan for EGD and colonoscopy tomorrow with Dr. Gibson. Regarding A. fib with RVR, cardiology was notified. Rate has slowed down his usual morning diltiazem and carvedilol Patient had been on steroids for acute respiratory failure, prednisone will be discontinued after this morning's dose. At 3:35 PM-repeat lactate after 500 cc bolus was 4.2. I did reexamine the patient and he states he feels just fine. He is finishing up his bowel prep in preparation for EGD and colonoscopy tomorrow. Recheck vitals now show a picture of 98, heart rate 95, respirations 16, blood pressure 141/72, O2 sat 97% on 3 L. He denies feeling feverish or chilled. He denies any sinus congestion, sore throat or cough. He denies increased shortness of breath. He denies any abdominal pain or cramping. He has not had a bowel movement yet with the bowel prep. He denies any dysuria. His urinalysis was was negative for signs of infection. Chest x-ray was improving. With increase in lactate and elevated white count, blood cultures were drawn and will start Rocephin 1 g IV daily empirically. Will give 1 L of fluid over 2 hours. He does not appear to be in septic shock. He appears about the best that I've seen him during this hospital course. I am not giving the 30 mL's per kilogram of IV fluid because he does not appear septic and he already suffers from mild fluid overload. Recheck basic metabolic and lactate at 6:30 this evening. Vitals every hour for now. The patient will let us know if he feel poorly. 06/16/2018 WBC count remains elevated at 27,400. Lactic acid which was 4.1 yesterday improved to 1.2 today. DC IV Rocephin. Patient on IV Zosyn. Status post EGD, colonoscopy on 06/16/2018; colonoscopy showed evidence of ischemic colitis likely secondary to sepsis. Clinically, patient does not have any abdominal pain or tenderness to palpation and tolerating oral intake. Plan to restart patient on Bumex 1 mg by mouth twice a day from tomorrow. Will monitor intake and output, daily weights. Pro-calcitonin was normal. Chest x-ray showed improved aeration of the right lower lobe. UA was negative. He had a recent GI panel 06/13/2018 for diarrhea which was negative. The patient was previously on Rocephin and Flagyl for colitis but these were discontinued on 06/12/2018. Eliquis is on hold for heme positive stools. Case discussed with Dr. Gibson, plan to restart home medication eliquis from tomorrow provided H&H stable. Regarding A. fib with RVR, cardiology was notified. Rate has slowed down his usual morning diltiazem and carvedilol
--- NOTE | 2018-06-21 16:49 | Progress Note ---
- Date 06/21/18 Subjective: Patient resting in bedside chair at the time of interview. Subjectively, no reported chest pain, no palpitations, no shortness of breath. Patient reports that he would like to be discharged from the hospital. Patient's telemetry showed atrial fibrillation with RVR earlier this morning heart rate as high as 184. Cardiology PA was consulted and patient received Cardizem 15 mg IV 1. Serum potassium 3.1, patient received 40 mEq oral potassium chloride in the morning, repeat serum potassium 3.2 this afternoon. Will provide further 40 mEq oral potassium chloride. Patient's blood sugars uncontrolled, as high as 387 this afternoon. Will be started on Lantus 10 units subcutaneous at bedtime from [facility]. Continue oral Flagyl and ciprofloxacin. In the office A. fib with RVR, uncontrolled blood sugars, patient will be monitored in the hospital for today. Patient also has -1.3 L fluid balance over the past 24 hours and -3.9 L fluid balance over the past 48 hours. Bumex medication held. Patient also provided to 50 mL IV normal saline challenge. Objective Vital signs: Temperature 98.1 F 06/21/18 15:51 Pulse Rate 87 06/21/18 16:04 Respiratory Rate 20 06/21/18 16:00 Blood Pressure 133/67 06/21/18 15:51 Pulse Oximetry 97 06/21/18 16:00 Height/Weight/BMI: Height 1.7 m Weight 81.3 kg Body Mass Index 29.3 - Additional findings Additional findings: General: Alert, awake, oriented x3. Not in acute distress. Head: Pupils equal, round, reactive to light and accommodation. Extraocular movements intact. Neck: No elevation in JVP. No pharyngeal erythema noted. Chest: The patient does not use accessory muscles for breathing. Lungs: Breath sounds audible on auscultation bilateral lung stroud. No wheezing , no rhonchi, no crepitations, no crackles. No pleural rub. CVS: S1, S2 heard on auscultation. Irregularly irregular heart sounds, tachycardic. No murmur, no S3/S4 gallops. Abdomen: Soft, nontender, no distention. Bowel sounds appreciated on auscultation. Skin: No rashes, no induration, no erythema. Capillary refill less than 4 seconds. Extremities: Trace pedal edema bilateral lower extremities. No calf tenderness bilaterally. Palpable dorsalis pedis and posterior tibial pulses bilateral lower extremities. Results - Labs CBC & Chem 7: 06/21/18 04:00 06/21/18 15:20 Microbiology Results: Microbiology 06/15/18 14:38 Peripheral/Iv Start Blood Culture - Final No Growth After 5 Days 06/15/18 14:38 Peripheral/Iv Start Gram Stain - Final 06/15/18 14:38 Peripheral/Iv Start Blood Culture - Final Corynebacterium species 06/04/18 14:30 Peripheral/Iv Start Blood Culture - Final No Growth After 5 Days 06/04/18 14:30 Peripheral/Iv Start Blood Culture - Final No Growth After 5 Days Assessment and Plan (1) Atrial fibrillation with RVR Current visit: No Status: Chronic (2) Atherosclerotic heart disease of [place] coronary artery without angina pectoris Current visit: No Status: Chronic (3) Sepsis Current visit: Yes Status: Acute (4) LUIS (acute kidney injury) Current visit: Yes Status: Acute (5) Generalized weakness Current visit: Yes Status: Acute (6) Congestive heart failure Problem details: EF 50% with echo in January 2018 Current visit: Yes Status: Chronic (7) Tobacco abuse Current visit: Yes Status: Chronic Assessment and Plan: Assessment Sepsis -resolved LUIS - likely GI source, resolved Leukocytosis, resolving. Colitis seen on CT- ischemic versus infectious, likely infectious given clinical scenario Heme positive stoolstatus post EGD/colonoscopy performed by Dr. Gibson on Iron Deficiency anemia. Patient received IV iron and 1 unit of PRBC transfusion Hyponatremia, not POA Hypokalemia, not POA Atrial fibrillation, with RVR Thrombocytosis, not POA V-tach, [id number] beat run on 06/04/2018 -no recurrence on telemetry Elevated creatinine-resolved CAD with an EF of 50%, mild mitral regurgitation, mild aortic insufficiency and mild tricuspid regurgitation Hypertension Dyslipidemia CHF - chronic diastolic heart failure -EF 50%. Tentative plan to restart Bumex from tomorrow morning. Chronic respiratory failure - 3L at home Plan Patient had atrial fibrillation with RVR, heart rate as high as 180 noted earlier today. Status post IV Cardizem 15 mg 1. RVR resolved. WBC count 11,400 today. Continue oral ciprofloxacin and Flagyl. Serum potassium 3.1, status post 40 meq oral potassium chloride, repeat potassium level 3.2 this afternoon. We will provide further 40 mEq oral potassium chloride. We will monitor potassium levels. Continue oral Protonix 40 mg before meals twice a day. Status post EGD, colonoscopy on 06/16/2018; colonoscopy showed evidence of ischemic colitis likely secondary to sepsis. Clinically, patient does not have any abdominal pain or tenderness to palpation and tolerating oral intake. Evidence of fluid overload during hospital stay, patient has -1.3 L fluid balance over past 24 hours and -3.9 L fluid balance over past 48 hours. We will stop oral Bumex. Will monitor intake and output, daily weights. Concern for contraction alkalosis and dehydration. We will provide IV normal saline 250 mL challenge. Blood sugars elevated, fingerstick blood sugars ranging from [id number]. We will switch to high-dose insulin sliding scale with NovoLog 312 units as per protocol. Continue home medications eliquis 5 mg twice a day. Status post transfusion of 1 unit of PRBC on 06/17/2018, hemoglobin 11.3 this morning. Will monitor H&H. Status post 2 doses of IV ferumoxytol during course of hospital stay. For paroxysmal atrial fibrillation continue oral diltiazem and carvedilol. Case discussed with case liner, Ms. Bradshaw and tentative plans for discharge home tomorrow. DVT Prophylaxis: Eliquis GI Prophylaxis: Protonix Resuscitation Status: Full Code - Physician Narrative Narrative: Date: 06/21/18 Time: 1646 Hospital Course Summary Disclaimer: The visit summary below is not to be considered part of the above Progress Note. Hospital Course: 01/2018- med list from discharge on cardiology service New Apixaban [Eliquis] 5 mg PO BID #60 tab Aspirin *EC* [Ecotrin] 81 mg PO DAILY #30 tab DiltiaZEM CD [Cardizem CD 360 MG] 360 mg PO DAILY #30 cap Rosuvastatin [Crestor] 20 mg PO HS #30 tab DiltiaZEM CD [Cardizem CD 240 MG] 240 mg PO DAILY #30 cap Continue Calcium Carbonate/Vitamin D3 [Calcium 500-Vit D3 200 Tablet] 2 each PO DAILY Ranitidine [Zantac] 1 tab PO DAILY NIFEdipine [Nifedipine ER] 90 mg PO DAILY Loratadine 10 mg PO DAILY PRN PRN Reason: Allergy Symptoms Lisinopril [Prinivil] 40 mg PO DAILY Metformin HCl 1,000 mg PO WS Ferrous Sulfate 325 mg PO DAILY Carvedilol [Coreg] 1 tab PO BIDWM Bumetanide Tab [Bumex 1 mg Tab] 1 mg PO BID Metolazone [Zaroxolyn] 2.5 mg PO DAILY Aspirin 1 tab PO DAILY Cyclobenzaprine [Flexeril] 10 mg PO HS Potassium Chloride [K-Tab ER] 20 meq PO DAILY 06/04/18 Admit patient to ICU due to unstable vital signs just prior to transfer. Repeat basic labs,troponin, and lactate to find trend. Blood cultures pending in [place] [place] Abdomen/pelvis due to sepsis, LUQ pain, elevated lactate. Get occult stool, stool for c diff, and GI PCR panel of stool. Monitor h/h. Start Protonix IV BID in the event of an UGIB and avoid blood thinners for now. Uncertain if patient is taking the Eliquis that was prescribed to him in January, as it's not in his medication bag - would hold acutely anyway. Give IVF and monitor UOP and creatinine in morning. UA was non-infectious in [place]. Check CPK. Continue diltiazem for rate control - give 60mg oral q6hrs as we monitor BP closely. Check TSH Hold nifedipine, lisinopril, Coreg, Bumex, and metolazone for now. Need to reconcile home meds with pharmacy as patient's medication bag doesn't match the records. 06/05/18 WBC trended up overnight, but afebrile. Blood cultures pending Lactate trended down - was 4.[address] [place] [address] Abdomen/pelvis shows colitis - likely infectious given clinical scenario. Occult stool positive - likely due to colitis - will continue BID PPI however for now and hold Eliquis. Restart pending clinical course. On Zosyn and Flagyl - change to Rocephin and Flagyl today. C diff negative. Need to ensure patient's med list is correct tomorrow with [facility] as his list doesn't match what's in his bag of medications. Most notably Eliquis. Continue diltiazem for rate control - change back to once daily dosing in the morning. Restart nifedipine and Coreg today. D/C IVF. Continue to hold Bumex, lisinopril, and metolazone for now - likely need to restart soon. Transfer to floor, up out of bed. 06/06/18 WBC improved to 15.8. Cont metronidazole/Rocephin. Hgb down to 8.2 but stool frequency is decreasing. Cont to hold ASA/Eliquis. Cont PPI. Renal function stable - cr 1.0. Weight is climbing - resume Bumex but will cont to hold metolazone and lisinopril. Resume Coreg. Continue Cardizem and nifedipine Increase activity - consult pt/ot 06/07/18 WBC improved to 15.1. Cont metronidazole/Rocephin. Hgb 8.0 - Cont to hold ASA/Eliquis. Cont PPI. Increased abdominal distention, hypoactive bowel sounds - concerned for ileus. Start bowel regimen. Na down to 135; renal functions with increase, BUN 23 and creatinine 1.4; weight continues to trend up. 86.5 --> 90.7 kg. Requiring 5L of oxygen to maintain saturations. Bumex resumed yesterday; metolazone and lisinopril remain on hold. Yesterday's CXR personally reviewed - stable but clinically concerned about failure. Will repeat CXR in am. 06/08/18 WBC stable at 15. Blood cultures remains negative. Cont metronidazole/Rocephin. Abd Xray revels distension. Asked nursing staff to give Dulcolax sup. Last BM 06/05. Increased oxygen demands up to 6 liters. Noted weight is up a proximal 27 pounds since admission. Resumed Bumex 1 milligram twice a day for diuresing. NA continues to trend down. Noted PO intake yesterday over 2200ML. Will add oral fluid restriction of 1800ML/24hrs. 06/09/18 Cont metronidazole/Rocephin; WBC trending down; 13.7. O2 demands slightly improved from yest but noted increased peripheral edema along with fluid pos status; currently on home dose Bumex 1 mg BID but Hctz has not been resumed. With hyponatremia, would prefer to use loop diuretic -- will give an extra 1 mg of Bumex tomorrow am for diuresis. Will also give KDur 20 mEq x1 in the am. Continue fluid restriction. Hgb stable at 8.3 -- consider resuming at least ASA; consider restarting Eliquis soon. Resume cardizem 360 mg; pt has been going in/out of a-fib. 06/10/18 Obtain venous Doppler of right upper ext to rule out DVT - Negative. Monitor erythema to right arm. Cont Rocephin. Discontinued Flagyl. Continues to have edema and weight continues to trend up. Will change Bumex to 1 mg IV- Monitor output. Will resume home Eliquis as recommended by cardiology team. Monitor for bleeding. Hgb stable at 8.3 Monitor BP- Continue on Cardizem 360mg daily. He does not need Nifedipine as long as BP is controlled. Initiated Solu-Medrol to help breathing - 125mg x1, then 62.5mg q 6 hours. 06/11/18 Continue to monitor erythema of the right antecubital as well as distal edema. Venous Doppler negative for DVT Into need is on Bumex twice a day Aird weight continues to trend up. Check chest x-ray today. Was started on Solu-Medrol to help with breathing last evening Continues on IV Rocephin daily Monitor BP- Continue on Cardizem 360mg daily. He does not need Nifedipine as long as BP is controlled. Hemoglobin remains stable, monitor for evidence of bleeding. Given resume of home Eliquis 06/12/18 White count has increased to 19,000, however, the patient remains on prednisone 30 mg daily. Blood cultures are negative after 5 days. Continue on Rocephin, day #9. DC Metronidazole. Hemoglobin has drifted down to 7.7, but the patient has been asymptomatic and he denies any hematochezia. Iron studies are pending as is Vitamin B12. He continues on Eliquis for A. fib. Platelets are increased at 425, monitor for now. Sodium is low but stable at 130. Renal function is stable. Weight has gone down by 3 kg despite having a fluid positive balance. He remains on 4 L of oxygen. Will discuss diuretic management with Dr. Angelo. Consider reviewing with Dr. Bush, educational fundraising director for Dr. Grider, prior to DC. 06/13/18 Appreciated surgical consultation by Dr Gibson We discussed diet- He may have a soft diet today with 1/2 portions only. Nursing staff notified. Will change to clear liquids with no diet tonight at [place], followed by NPO tomorrow night 06/16 at [place]. [place] remains on hold Planned to upper and lower scope 06/16. Continue to follow blood counts carefully- Hgb 7.4. GI panel was negative yesterday. Stool for occult blood is positive Bumex 1 mg BID for ongoing diuresing Antibiotics completed Case discussed with attending, Dr Angelo 06/14/2018 Appreciated surgical consultation by Dr Gibson We discussed diet- He may have a soft diet today with 1/2 portions only. Nursing staff notified. Will change to clear liquids with no diet tonight at [place], followed by NPO tomorrow night 06/16 at [place]. Eliquis remains on hold Planned to upper and lower scope 06/16. Continue to follow blood counts carefully- Hgb 7.4. GI panel was negative yesterday. Stool for occult blood is positive Bumex 1 mg BID for ongoing diuresing Antibiotics completed 06/15/2018 The patient was found to have a white count of 28 today from 19 yesterday. Bands are 4. He is afebrile. He feels well. Lactate was obtained and was mildly elevated at 2.5. Pro-calcitonin was normal. Chest x-ray showed improved aeration of the right lower lobe. UA was negative. He had a recent GI panel for diarrhea which was negative. He was diuresed significantly yesterday and may just be a little intravascularly dry. We'll repeat lactate and draw blood cultures this afternoon. Hold oral Bumex today. Can decide tomorrow whether or not it should be resumed The patient was previously on Rocephin and Flagyl for colitis but these were discontinued on 06/12/2018. Eliquis is on hold for heme positive stools. Plan for EGD and colonoscopy tomorrow with Dr. Gibson. Regarding A. fib with RVR, cardiology was notified. Rate has slowed down his usual morning diltiazem and carvedilol Patient had been on steroids for acute respiratory failure, prednisone will be discontinued after this morning's dose. At 3:35 PM-repeat lactate after 500 cc bolus was 4.2. I did reexamine the patient and he states he feels just fine. He is finishing up his bowel prep in preparation for EGD and colonoscopy tomorrow. Recheck vitals now show a picture of 98, heart rate 95, respirations 16, blood pressure 141/72, O2 sat 97% on 3 L. He denies feeling feverish or chilled. He denies any sinus congestion, sore throat or cough. He denies increased shortness of breath. He denies any abdominal pain or cramping. He has not had a bowel movement yet with the bowel prep. He denies any dysuria. His urinalysis was was negative for signs of infection. Chest x-ray was improving. With increase in lactate and elevated white count, blood cultures were drawn and will start Rocephin 1 g IV daily empirically. Will give 1 L of fluid over 2 hours. He does not appear to be in septic shock. He appears about the best that I've seen him during this hospital course. I am not giving the 30 mL's per kilogram of IV fluid because he does not appear septic and he already suffers from mild fluid overload. Recheck basic metabolic and lactate at 6:30 this evening. Vitals every hour for now. The patient will let us know if he feel poorly. 06/16/2018 WBC count remains elevated at 27,400. Lactic acid which was 4.1 yesterday improved to 1.2 today. DC IV Rocephin. Patient on IV Zosyn. Status post EGD, colonoscopy on 06/16/2018; colonoscopy showed evidence of ischemic colitis likely secondary to sepsis. Clinically, patient does not have any abdominal pain or tenderness to palpation and tolerating oral intake. Plan to restart patient on Bumex 1 mg by mouth twice a day from tomorrow. Will monitor intake and output, daily weights. Pro-calcitonin was normal. Chest x-ray showed improved aeration of the right lower lobe. UA was negative. He had a recent GI panel 06/13/2018 for diarrhea which was negative. The patient was previously on Rocephin and Flagyl for colitis but these were discontinued on 06/12/2018. Eliquis is on hold for heme positive stools. Case discussed with Dr. Gibson, plan to restart home medication eliquis from tomorrow provided H&H stable. Regarding A. fib with RVR, cardiology was notified. Rate has slowed down his usual morning diltiazem and carvedilol 06/17/2018 WBC count improved from 27,400 yesterday to 15,400 today. Lactic acid improved to 1.2 yesterday. Continue IV Zosyn. Status post EGD, colonoscopy on 06/16/2018; colonoscopy showed evidence of ischemic colitis likely secondary to sepsis. Clinically, patient does not have any abdominal pain or tenderness to palpation and tolerating oral intake. Evidence of fluid overload, although patient has lost 1.1 KG when compared to yesterday. Continue Bumex 1 mg by mouth twice a day. Will monitor intake and output, daily weights. Patient restarted on home medications eliquis 5 mg twice a day. Hemoglobin 7.7, has been ranging from 7. 48 during the course of hospital stay. Case discussed with Dr. Nirmal Metcalf and recommendation transfuse 1 unit of PRBC. We will provide 20 mg IV Lasix posttransfusion. Will monitor H&H. Regarding A. fib with RVR, cardiology was notified. Recommendation to continue current dose of oral diltiazem and carvedilol. Serum potassium 3.3, will provide oral potassium chloride 40 mEq 1. 06/18/2018 WBC count improved from 15,400 yesterday to 14,000 today. Continue IV Zosyn. Status post EGD, colonoscopy on 06/16/2018; colonoscopy showed evidence of ischemic colitis likely secondary to sepsis. Clinically, patient does not have any abdominal pain or tenderness to palpation and tolerating oral intake. Evidence of fluid overload, although patient has -1 L fluid balance overnight. Continue Bumex 1 mg by mouth twice a day. We will provide metolazone 5 mg by mouth 1. Will monitor intake and output, daily weights. Continue home medications eliquis 5 mg twice a day. Hemoglobin 7.7 yesterday, status post transfusion of 1 unit of PRBC, hemoglobin 9.5 this morning. Will monitor H&H. 06/19/2018 WBC count improved from 14,000 yesterday to 11,900 today. Stop IV Zosyn. Patient started on oral ciprofloxacin and Flagyl. DC IV Protonix, patient started on oral Protonix 40 mg before meals twice a day. Status post EGD, colonoscopy on 06/16/2018; colonoscopy showed evidence of ischemic colitis likely secondary to sepsis. Clinically, patient does not have any abdominal pain or tenderness to palpation and tolerating oral intake. Evidence of fluid overload, patient has negative 300 mL fluid balance overnight. Patient received 1 dose of metolazone 5 mg by mouth this morning. We will switch Bumex 2 mg every morning and 1 mg every afternoon. Will monitor intake and output, daily weights. Continue home medications eliquis 5 mg twice a day. 06/20/2018 WBC count 13,000 today. Continue oral ciprofloxacin and Flagyl. Continue oral Protonix 40 mg before meals twice a day. Status post EGD, colonoscopy on 06/16/2018; colonoscopy showed evidence of ischemic colitis likely secondary to sepsis. Clinically, patient does not have any abdominal pain or tenderness to palpation and tolerating oral intake. Evidence of fluid overload, patient has -2.6 fluid balance overnight. Continue Bumex 2 mg every morning and 1 mg every afternoon. Will monitor intake and output, daily weights. Blood sugars elevated, fingerstick blood sugars ranging from [id number]. We will switch to high-dose insulin sliding scale with NovoLog 312 units as per protocol. Continue home medications eliquis 5 mg twice a day. Status post transfusion of 1 unit of PRBC on 06/17/2018, hemoglobin 10.5 this morning. Will monitor H&H. Will provide second dose of IV ferumoxytol today. For paroxysmal atrial fibrillation continue current dose of oral diltiazem and carvedilol. 06/21/2018 Patient had atrial fibrillation with RVR, heart rate as high as 180 noted earlier today. Status post IV Cardizem 15 mg 1. RVR resolved. WBC count 11,400 today. Continue oral ciprofloxacin and Flagyl. Serum potassium 3.1, status post 40 meq oral potassium chloride, repeat potassium level 3.2 this afternoon. We will provide further 40 mEq oral potassium chloride. We will monitor potassium levels. Continue oral Protonix 40 mg before meals twice a day. Status post EGD, colonoscopy on 06/16/2018; colonoscopy showed evidence of ischemic colitis likely secondary to sepsis. Clinically, patient does not have any abdominal pain or tenderness to palpation and tolerating oral intake. Evidence of fluid overload during hospital stay, patient has -1.3 L fluid balance over past 24 hours and -3.9 L fluid balance over past 48 hours. We will stop oral Bumex. Will monitor intake and output, daily weights. Concern for contraction alkalosis and dehydration. We will provide IV normal saline 250 mL challenge. Blood sugars elevated, fingerstick blood sugars ranging from [id number]. We will switch to high-dose insulin sliding scale with NovoLog 312 units as per protocol. Continue home medications eliquis 5 mg twice a day. Status post transfusion of 1 unit of PRBC on 06/17/2018, hemoglobin 11.3 this morning. Will monitor H&H. Status post 2 doses of IV ferumoxytol during course of hospital stay. For paroxysmal atrial fibrillation continue oral diltiazem and carvedilol. Case discussed with case liner, Ms. Bradshaw and tentative plans for discharge home tomorrow.
[2018-06-21] MEDS: CARVEDILOL 6.25 MG TABLET PO SCH (17:07)
[2018-06-21] MEDS ORDERED: INSULIN GLARGINE 100unit/ml INJECTION SQ SCH (21:00)
[2018-06-21] MEDS: ROSUVASTATIN 20 MG TABLET PO SCH (22:23)
[2018-06-22] MEDS: PANTOPRAZOLE 40 MG TABLET PO SCH (05:34)
[2018-06-22] MEDS: ALBUTEROL/IPRATROPIUM 2.5mg-0.5mg/3ml NEB AEROSOL SCH ×2 (07:52→11:42)
[2018-06-22] MEDS: BUDESONIDE INH.SOLN 0.5mg/2ml NEB AEROSOL SCH (07:52)
[2018-06-22] MEDS: CALCIUM 500 + VIT D 200 TABLET PO SCH (08:33)
[2018-06-22] MEDS: MetroNIDAZOLE 500 MG TABLET PO SCH (08:33)
[2018-06-22] MEDS: CIPROFLOXACIN 500 MG TABLET PO SCH (08:34)
[2018-06-22] MEDS: CARVEDILOL 6.25 MG TABLET PO SCH (08:34)
[2018-06-22] MEDS: DiltiaZEM CD 360 MG CAPSULE PO SCH (08:34)
[2018-06-22] MEDS: APIXABAN 5 MG TABLET PO SCH (08:34)
[2018-06-22 10:46] VITALS: BP 132/83; PULSE 97; TEMP 97.1
[2018-06-22] MEDS: INSULIN ASPART 100unit/ml INJECTION SQ PRN (10:56)
[2018-06-22 11:51] VITALS: RESP 12; O2SAT 97
--- NOTE | 2018-06-22 12:45 | Discharge Summary ---
Discharge Information Date of admission: 06/04/18 15:45 Attending Physician: Amy Napoles MD Primary care physician: Lorri De Dios MD Consults: 06/08/18 10:18 Doctor [Physician Consult] [CONS] Routine Consulting Provider: Tracy Kessler Reason For Exam: PT/OT NEEDED Ordering Provider has Notified Grinding Room Supervisor: Yes 06/13/18 10:33 Physician Consult [CONS] Routine Consulting Provider: Jerardo Gibson Reason For Exam: gi bleed Ordering Provider has Notified Grinding Room Supervisor: Yes 06/13/18 10:54 Physician Consult [CONS] Routine Consulting Provider: Carlos Enrique Bush Reason For Exam: chf, nsvt Ordering Provider has Notified Grinding Room Supervisor: Yes Comment: i will notify - Discharge Diagnosis (1) Sepsis Status: Resolved (2) LUIS (acute kidney injury) Status: Resolved (3) Atrial fibrillation with RVR Status: Chronic (4) Atherosclerotic heart disease of [place] coronary artery without angina pectoris Status: Chronic (5) Generalized weakness Status: Resolved (6) Tobacco abuse Status: Chronic Acute exacerbation of chronic diastolic congestive heart failure, resolved Descending colitis, likely secondary to ischemia from sepsis, resolved Lower GI bleeding from colitis, resolved Newly diagnosed type 2 diabetes mellitus, with hemoglobin A1c 6.3 Contraction alkalosis from Loop diuretics, resolved Episodes of nonsustained V. tach noted on telemetry, resolved Hyponatremia, resolved Hypokalemia, resolved History of coronary artery disease Hypertension Hyperlipidemia - Procedures Procedures: EGD and colonoscopy performed on 06/16/2018 PROCEDURE Esophagogastroduodenoscopy, colonoscopy with biopsies from splenic flexure region via cold biopsy technique. Ischemic versus infectious colitis. - Laboratory Labs: 06/21/18 04:00 06/22/18 04:22 Laboratory Tests 06/04/18 06/05/18 06/13/18 22:25 08:50 19:45 Hemoglobin A1c Stool Occult Blood Positive A Stl Cyclospora species Negative Negative Stool Rotavirus A PCR Negative Negative Stool Adenovirus (PCR) Negative Negative Stool Astrovirus (PCR) Negative Negative Stool Campylobacter PCR Negative Negative Stl C.difficile Tox PCR Negative Negative Stool Cryptosporidium PCR Negative Negative Stl E.coli Shiga Toxins Negative Negative Stl Enterotoxigenic E PCR Negative Negative Stool EPEC (PCR) Negative Negative Stool EAEC (PCR) Negative Negative Stool Entamoeba (PCR) Negative Negative Stool Giardia Lamblia PCR Negative Negative Stool Salmonella PCR Negative Negative Stool Sapovirus (PCR) Negative Negative Stl P. shigelloides PCR Negative Negative Stl Shigella/EIEC PCR Negative Negative St Y.enterocolitica PCR Negative Negative Stool Vibrio (PCR) Negative Negative Stl Vibrio cholera PCR Negative Negative Stl Norovirus GI/GII PCR Negative Negative 06/13/18 06/21/18 19:45 04:00 Hemoglobin A1c 6.3 H Stool Occult Blood Positive A Stl Cyclospora species Stool Rotavirus A PCR Stool Adenovirus (PCR) Stool Astrovirus (PCR) Stool Campylobacter PCR Stl C.difficile Tox PCR Stool Cryptosporidium PCR Stl E.coli Shiga Toxins Stl Enterotoxigenic E PCR Stool EPEC (PCR) Stool EAEC (PCR) Stool Entamoeba (PCR) Stool Giardia Lamblia PCR Stool Salmonella PCR Stool Sapovirus (PCR) Stl P. shigelloides PCR Stl Shigella/EIEC PCR St Y.enterocolitica PCR Stool Vibrio (PCR) Stl Vibrio cholera PCR Stl Norovirus GI/GII PCR Laboratory Tests 06/16/18 04:08 WBC 27.4 H* RBC 3.31 L Hgb 7.6 L Hct 25.7 L MCV 77.6 L MCH 23.0 L MCHC 29.6 L RDW Std Deviation 41.5 Plt Count 472 H MPV 9.6 - Microbiology Microbiology 06/15/18 14:38 Peripheral/Iv Start Blood Culture - Final No Growth After 5 Days 06/15/18 14:38 Peripheral/Iv Start Gram Stain - Final 06/15/18 14:38 Peripheral/Iv Start Blood Culture - Final Corynebacterium species 06/04/18 14:30 Peripheral/Iv Start Blood Culture - Final No Growth After 5 Days 06/04/18 14:30 Peripheral/Iv Start Blood Culture - Final No Growth After 5 Days - Radiology Radiology: CT scan of abdomen and pelvis without contrast performed on 06/04/2018 Impression: 1. Inflammation in the splenic flexure region of the colon could represent infectious, inflammatory or ischemic colitis. 2. Cholelithiasis Portable chest x-ray performed on 06/05/2018 IMPRESSION: No acute cardiopulmonary process is identified. Abdominal x-ray 2 views performed on 06/08/2018 Impression: Mild small bowel distention with nondifferential air-fluid levels could represent ileus or gastroenteritis. Doppler venous ultrasound right upper extremity performed on 06/10/2018 IMPRESSION: No evidence of acute DVT in the right upper extremity. Echocardiogram performed on 06/13/2018 CONCLUSIONS 1. Normal left ventricular systolic function, estimated left ventricular ejection fraction 55-60%. 2. Normal right ventricular systolic function. 3. Moderate posterior mitral annular calcification noted, only trivial mitral regurgitation noted. 4. Trivial tricuspid regurgitation noted. 5. Normal inferior vena cava with normal respirophasic variation. - Pathology Pathology report from colonic mucosa biopsies performed on 06/16/2018 Focal acute necrotizing mucosal ulceration, edema and exuberant granulation tissue. Focal glandular atypia. No malignant neoplasm identified. Areas of glandular atypia suspicious for tubular adenoma with low-grade dysplasia. However inflammation as seen in the biopsy can induce reactive atypia similar to that seen in the polyps. No high-grade dysplasia or invasive neoplasm is identified. History of Present Illness HPI: This is a 73 year old male with history of atrial fibrillation, hypertension, CAD, CVA, and hyperlipidemia who presented to [facility] with generalized weakness. He was doing well until 10am this morning. He had just eaten breakfast and went to the bathroom when he had a large amount of diarrhea. He denies any dark or tarry stools. He immediately became very weak all over and had to help himself to the floor. It took him 2 hours to get to the kitchen, where the phone is in his home, to call 911. EMS arrived and found him lying on his kitchen floor. His blood pressure was in the 80's upon their arrival. In the [place] ER, his blood pressure improved significantly after 1 liter of normal saline. However, his heart rate was found to be in david 140-150 range in a-fib. He was given diltiazem IV and it improved to the 90's. Other findings in the ER were a WBC of 18, hemoglobin 11.4, 7% bands, creatinine of 1.54, and lactate of 4.4. Urinalysis was non-infectious. Chest xray showed nothing acute. Per verbal report, his stool was hemoccult positive. He had 2 more loose stools while in the ER. He was given a second liter of normal saline as well as 1 gram of rocephin and transferred here for further care. Upon my evaluation, he says he feels somewhat better. He remembers all of the events of today. He feels like he is going to have another episode of diarrhea and requests a bedpan. He says he has been on antibiotics recently, but he doesn't remember what for. He also says he was on a blood thinner for his a-fib , but doesn't remember the name. Neither of these medications are in the bag of medications that he brought with him. Objective Vital signs: Temperature 97.1 F 06/22/18 10:45 Pulse Rate 97 06/22/18 10:45 Respiratory Rate 12 06/22/18 11:42 Blood Pressure 132/83 06/22/18 10:45 Pulse Oximetry 97 06/22/18 11:42 Height/Weight/BMI: Height 1.7 m Weight 81 kg Body Mass Index 29.3 - Additional findings Additional findings: General: Alert, awake, oriented x3. Not in acute distress. Head: Pupils equal, round, reactive to light and accommodation. Extraocular movements intact. Neck: No elevation in JVP. No pharyngeal erythema noted. Chest: The patient does not use accessory muscles for breathing. Lungs: Breath sounds audible on auscultation bilateral lung stroud. No wheezing , no rhonchi, no crepitations, no crackles. No pleural rub. CVS: S1, S2 heard on auscultation. Irregularly irregular heart sounds. No murmur, no S3/S4 gallops. Abdomen: Soft, nontender, no distention. Bowel sounds appreciated on auscultation. Skin: No rashes, no induration, no erythema. Capillary refill less than 4 seconds. Extremities: Trace pedal edema bilateral lower extremities. No calf tenderness bilaterally. Palpable dorsalis pedis and posterior tibial pulses bilateral lower extremities. Hospital Course This is a general summary of the patient's hospital course. For more details refer to the complete medical record. Hospital course: 01/2018- med list from discharge on cardiology service New Apixaban [Eliquis] 5 mg PO BID #60 tab Aspirin *EC* [Ecotrin] 81 mg PO DAILY #30 tab DiltiaZEM CD [Cardizem CD 360 MG] 360 mg PO DAILY #30 cap Rosuvastatin [Crestor] 20 mg PO HS #30 tab DiltiaZEM CD [Cardizem CD 240 MG] 240 mg PO DAILY #30 cap Continue Calcium Carbonate/Vitamin D3 [Calcium 500-Vit D3 200 Tablet] 2 each PO DAILY Ranitidine [Zantac] 1 tab PO DAILY NIFEdipine [Nifedipine ER] 90 mg PO DAILY Loratadine 10 mg PO DAILY PRN PRN Reason: Allergy Symptoms Lisinopril [Prinivil] 40 mg PO DAILY Metformin HCl 1,000 mg PO WS Ferrous Sulfate 325 mg PO DAILY Carvedilol [Coreg] 1 tab PO BIDWM Bumetanide Tab [Bumex 1 mg Tab] 1 mg PO BID Metolazone [Zaroxolyn] 2.5 mg PO DAILY Aspirin 1 tab PO DAILY Cyclobenzaprine [Flexeril] 10 mg PO HS Potassium Chloride [K-Tab ER] 20 meq PO DAILY 06/04/18 Admit patient to ICU due to unstable vital signs just prior to transfer. Repeat basic labs,troponin, and lactate to find trend. Blood cultures pending in [place]. CT Abdomen/pelvis due to sepsis, LUQ pain, elevated lactate. Get occult stool, stool for c diff, and GI PCR panel of stool. Monitor h/h. Start Protonix IV BID in the event of an UGIB and avoid blood thinners for now. Uncertain if patient is taking the Eliquis that was prescribed to him in January, as it's not in his medication bag - would hold acutely anyway. Give IVF and monitor UOP and creatinine in morning. UA was non-infectious in [place]. Check CPK. Continue diltiazem for rate control - give 60mg oral q6hrs as we monitor BP closely. Check TSH Hold nifedipine, lisinopril, Coreg, Bumex, and metolazone for now. Need to reconcile home meds with pharmacy as patient's medication bag doesn't match the records. 06/05/18 WBC trended up overnight, but afebrile. Blood cultures pending Lactate trended down - was 4.[address] [place] [address] Abdomen/pelvis shows colitis - likely infectious given clinical scenario. Occult stool positive - likely due to colitis - will continue BID PPI however for now and hold Eliquis. Restart pending clinical course. On Zosyn and Flagyl - change to Rocephin and Flagyl today. C diff negative. Need to ensure patient's med list is correct tomorrow with [facility] as his list doesn't match what's in his bag of medications. Most notably Eliquis. Continue diltiazem for rate control - change back to once daily dosing in the morning. Restart nifedipine and Coreg today. D/C IVF. Continue to hold Bumex, lisinopril, and metolazone for now - likely need to restart soon. Transfer to floor, up out of bed. 06/06/18 WBC improved to 15.8. Cont metronidazole/Rocephin. Hgb down to 8.2 but stool frequency is decreasing. Cont to hold ASA/Eliquis. Cont PPI. Renal function stable - cr 1.0. Weight is climbing - resume Bumex but will cont to hold metolazone and lisinopril. Resume Coreg. Continue Cardizem and nifedipine Increase activity - consult pt/ot 06/07/18 WBC improved to 15.1. Cont metronidazole/Rocephin. Hgb 8.0 - Cont to hold ASA/Eliquis. Cont PPI. Increased abdominal distention, hypoactive bowel sounds - concerned for ileus. Start bowel regimen. Na down to 135; renal functions with increase, BUN 23 and creatinine 1.4; weight continues to trend up. 86.5 --> 90.7 kg. Requiring 5L of oxygen to maintain saturations. Bumex resumed yesterday; metolazone and lisinopril remain on hold. Yesterday's CXR personally reviewed - stable but clinically concerned about failure. Will repeat CXR in am. 06/08/18 WBC stable at 15. Blood cultures remains negative. Cont metronidazole/Rocephin. Abd Xray revels distension. Asked nursing staff to give Dulcolax sup. Last BM 06/05. Increased oxygen demands up to 6 liters. Noted weight is up a proximal 27 pounds since admission. Resumed Bumex 1 milligram twice a day for diuresing. NA continues to trend down. Noted PO intake yesterday over 2200ML. Will add oral fluid restriction of 1800ML/24hrs. 06/09/18 Cont metronidazole/Rocephin; WBC trending down; 13.7. O2 demands slightly improved from yest but noted increased peripheral edema along with fluid pos status; currently on home dose Bumex 1 mg BID but Hctz has not been resumed. With hyponatremia, would prefer to use loop diuretic -- will give an extra 1 mg of Bumex tomorrow am for diuresis. Will also give KDur 20 mEq x1 in the am. Continue fluid restriction. Hgb stable at 8.3 -- consider resuming at least ASA; consider restarting Eliquis soon. Resume cardizem 360 mg; pt has been going in/out of a-fib. 06/10/18 Obtain venous Doppler of right upper ext to rule out DVT - Negative. Monitor erythema to right arm. Cont Rocephin. Discontinued Flagyl. Continues to have edema and weight continues to trend up. Will change Bumex to 1 mg IV- Monitor output. Will resume home Eliquis as recommended by cardiology team. Monitor for bleeding. Hgb stable at 8.3 Monitor BP- Continue on Cardizem 360mg daily. He does not need Nifedipine as long as BP is controlled. Initiated Solu-Medrol to help breathing - 125mg x1, then 62.5mg q 6 hours. 06/11/18 Continue to monitor erythema of the right antecubital as well as distal edema. Venous Doppler negative for DVT Into need is on Bumex twice a day Aird weight continues to trend up. Check chest x-ray today. Was started on Solu-Medrol to help with breathing last evening Continues on IV Rocephin daily Monitor BP- Continue on Cardizem 360mg daily. He does not need Nifedipine as long as BP is controlled. Hemoglobin remains stable, monitor for evidence of bleeding. Given resume of home Eliquis 06/12/18 White count has increased to 19,000, however, the patient remains on prednisone 30 mg daily. Blood cultures are negative after 5 days. Continue on Rocephin, day #9. DC Metronidazole. Hemoglobin has drifted down to 7.7, but the patient has been asymptomatic and he denies any hematochezia. Iron studies are pending as is Vitamin B12. He continues on Eliquis for A. fib. Platelets are increased at 425, monitor for now. Sodium is low but stable at 130. Renal function is stable. Weight has gone down by 3 kg despite having a fluid positive balance. He remains on 4 L of oxygen. Will discuss diuretic management with Dr. Angelo. Consider reviewing with Dr. Bush, semiconductor dies loader for Dr. Grider, prior to DC. 06/13/18 Appreciated surgical consultation by Dr Gibson We discussed diet- He may have a soft diet today with 1/2 portions only. Nursing staff notified. Will change to clear liquids with no diet tonight at [place], followed by NPO tomorrow night 06/16 at [place]. Eliquis remains on hold Planned to upper and lower scope 06/16. Continue to follow blood counts carefully- Hgb 7.4. GI panel was negative yesterday. Stool for occult blood is positive Bumex 1 mg BID for ongoing diuresing Antibiotics completed Case discussed with attending, Dr Angelo 06/14/2018 Appreciated surgical consultation by Dr Gibson We discussed diet- He may have a soft diet today with 1/2 portions only. Nursing staff notified. Will change to clear liquids with no diet tonight at [place], followed by NPO tomorrow night 06/16 at [facility]. Eliquis remains on hold Planned to upper and lower scope 06/16. Continue to follow blood counts carefully- Hgb 7.4. GI panel was negative yesterday. Stool for occult blood is positive Bumex 1 mg BID for ongoing diuresing Antibiotics completed 06/15/2018 The patient was found to have a white count of 28 today from 19 yesterday. Bands are 4. He is afebrile. He feels well. Lactate was obtained and was mildly elevated at 2.5. Pro-calcitonin was normal. Chest x-ray showed improved aeration of the right lower lobe. UA was negative. He had a recent GI panel for diarrhea which was negative. He was diuresed significantly yesterday and may just be a little intravascularly dry. We'll repeat lactate and draw blood cultures this afternoon. Hold oral Bumex today. Can decide tomorrow whether or not it should be resumed The patient was previously on Rocephin and Flagyl for colitis but these were discontinued on 06/12/2018. Eliquis is on hold for heme positive stools. Plan for EGD and colonoscopy tomorrow with Dr. Gibson. Regarding A. fib with RVR, cardiology was notified. Rate has slowed down his usual morning diltiazem and carvedilol Patient had been on steroids for acute respiratory failure, prednisone will be discontinued after this morning's dose. At 3:35 PM-repeat lactate after 500 cc bolus was 4.2. I did reexamine the patient and he states he feels just fine. He is finishing up his bowel prep in preparation for EGD and colonoscopy tomorrow. Recheck vitals now show a picture of 98, heart rate 95, respirations 16, blood pressure 141/72, O2 sat 97% on 3 L. He denies feeling feverish or chilled. He denies any sinus congestion, sore throat or cough. He denies increased shortness of breath. He denies any abdominal pain or cramping. He has not had a bowel movement yet with the bowel prep. He denies any dysuria. His urinalysis was was negative for signs of infection. Chest x-ray was improving. With increase in lactate and elevated white count, blood cultures were drawn and will start Rocephin 1 g IV daily empirically. Will give 1 L of fluid over 2 hours. He does not appear to be in septic shock. He appears about the best that I've seen him during this hospital course. I am not giving the 30 mL's per kilogram of IV fluid because he does not appear septic and he already suffers from mild fluid overload. Recheck basic metabolic and lactate at 6:30 this evening. Vitals every hour for now. The patient will let us know if he feel poorly. 06/16/2018 WBC count remains elevated at 27,400. Lactic acid which was 4.1 yesterday improved to 1.2 today. DC IV Rocephin. Patient on IV Zosyn. Status post EGD, colonoscopy on 06/16/2018; colonoscopy showed evidence of ischemic colitis likely secondary to sepsis. Clinically, patient does not have any abdominal pain or tenderness to palpation and tolerating oral intake. Plan to restart patient on Bumex 1 mg by mouth twice a day from tomorrow. Will monitor intake and output, daily weights. Pro-calcitonin was normal. Chest x-ray showed improved aeration of the right lower lobe. UA was negative. He had a recent GI panel 06/13/2018 for diarrhea which was negative. The patient was previously on Rocephin and Flagyl for colitis but these were discontinued on 06/12/2018. Eliquis is on hold for heme positive stools. Case discussed with Dr. Gibson, plan to restart home medication eliquis from tomorrow provided H&H stable. Regarding A. fib with RVR, cardiology was notified. Rate has slowed down his usual morning diltiazem and carvedilol 06/17/2018 WBC count improved from 27,400 yesterday to 15,400 today. Lactic acid improved to 1.2 yesterday. Continue IV Zosyn. Status post EGD, colonoscopy on 06/16/2018; colonoscopy showed evidence of ischemic colitis likely secondary to sepsis. Clinically, patient does not have any abdominal pain or tenderness to palpation and tolerating oral intake. Evidence of fluid overload, although patient has lost 1.1 KG when compared to yesterday. Continue Bumex 1 mg by mouth twice a day. Will monitor intake and output, daily weights. Patient restarted on home medications eliquis 5 mg twice a day. Hemoglobin 7.7, has been ranging from 7. 48 during the course of hospital stay. Case discussed with Dr. Nirmal Metcalf and recommendation transfuse 1 unit of PRBC. We will provide 20 mg IV Lasix posttransfusion. Will monitor H&H. Regarding A. fib with RVR, cardiology was notified. Recommendation to continue current dose of oral diltiazem and carvedilol. Serum potassium 3.3, will provide oral potassium chloride 40 mEq 1. 06/18/2018 WBC count improved from 15,400 yesterday to 14,000 today. Continue IV Zosyn. Status post EGD, colonoscopy on 06/16/2018; colonoscopy showed evidence of ischemic colitis likely secondary to sepsis. Clinically, patient does not have any abdominal pain or tenderness to palpation and tolerating oral intake. Evidence of fluid overload, although patient has -1 L fluid balance overnight. Continue Bumex 1 mg by mouth twice a day. We will provide metolazone 5 mg by mouth 1. Will monitor intake and output, daily weights. Continue home medications eliquis 5 mg twice a day. Hemoglobin 7.7 yesterday, status post transfusion of 1 unit of PRBC, hemoglobin 9.5 this morning. Will monitor H&H. 06/19/2018 WBC count improved from 14,000 yesterday to 11,900 today. Stop IV Zosyn. Patient started on oral ciprofloxacin and Flagyl. DC IV Protonix, patient started on oral Protonix 40 mg before meals twice a day. Status post EGD, colonoscopy on 06/16/2018; colonoscopy showed evidence of ischemic colitis likely secondary to sepsis. Clinically, patient does not have any abdominal pain or tenderness to palpation and tolerating oral intake. Evidence of fluid overload, patient has negative 300 mL fluid balance overnight. Patient received 1 dose of metolazone 5 mg by mouth this morning. We will switch Bumex 2 mg every morning and 1 mg every afternoon. Will monitor intake and output, daily weights. Continue home medications eliquis 5 mg twice a day. 06/20/2018 WBC count 13,000 today. Continue oral ciprofloxacin and Flagyl. Continue oral Protonix 40 mg before meals twice a day. Status post EGD, colonoscopy on 06/16/2018; colonoscopy showed evidence of ischemic colitis likely secondary to sepsis. Clinically, patient does not have any abdominal pain or tenderness to palpation and tolerating oral intake. Evidence of fluid overload, patient has -2.6 fluid balance overnight. Continue Bumex 2 mg every morning and 1 mg every afternoon. Will monitor intake and output, daily weights. Blood sugars elevated, fingerstick blood sugars ranging from [id number]. We will switch to high-dose insulin sliding scale with NovoLog 312 units as per protocol. Continue home medications eliquis 5 mg twice a day. Status post transfusion of 1 unit of PRBC on 06/17/2018, hemoglobin 10.5 this morning. Will monitor H&H. Will provide second dose of IV ferumoxytol today. For paroxysmal atrial fibrillation continue current dose of oral diltiazem and carvedilol. 06/21/2018 Patient had atrial fibrillation with RVR, heart rate as high as 180 noted earlier today. Status post IV Cardizem 15 mg 1. RVR resolved. WBC count 11,400 today. Continue oral ciprofloxacin and Flagyl. Serum potassium 3.1, status post 40 meq oral potassium chloride, repeat potassium level 3.2 this afternoon. We will provide further 40 mEq oral potassium chloride. We will monitor potassium levels. Continue oral Protonix 40 mg before meals twice a day. Status post EGD, colonoscopy on 06/16/2018; colonoscopy showed evidence of ischemic colitis likely secondary to sepsis. Clinically, patient does not have any abdominal pain or tenderness to palpation and tolerating oral intake. Evidence of fluid overload during hospital stay, patient has -1.3 L fluid balance over past 24 hours and -3.9 L fluid balance over past 48 hours. We will stop oral Bumex. Will monitor intake and output, daily weights. Concern for contraction alkalosis and dehydration. We will provide IV normal saline 250 mL challenge. Blood sugars elevated, fingerstick blood sugars ranging from [id number]. We will switch to high-dose insulin sliding scale with NovoLog 312 units as per protocol. Continue home medications eliquis 5 mg twice a day. Status post transfusion of 1 unit of PRBC on 06/17/2018, hemoglobin 11.3 this morning. Will monitor H&H. Status post 2 doses of IV ferumoxytol during course of hospital stay. For paroxysmal atrial fibrillation continue oral diltiazem and carvedilol. Case discussed with geriatric case manager, Ms. Bradshaw and tentative plans for discharge home tomorrow. 06/22/2018 A. fib chronic, asymptomatic at the time of discharge. Patient did have a heart rate momentarily elevated as high as 150 earlier during the day, heart rate improved to 97 prior to discharge. We will continue oral Cardizem and metoprolol medications on discharge. Continue home medication eliquis 5 mg by mouth twice a day. Hemoglobin A1c elevated at 6.3. Discussed with patient about nighttime Lantus versus metformin medication, patient opted for oral metformin. Discharged on metformin 500 mg twice a day. Patient has -500 mL fluid balance on the day of discharge. Patient initially treated with IV Zosyn and Flagyl antibiotic and later on oral Cipro and Flagyl antibiotics during course of hospital stay. Antibiotics course completed, will not be further prescribed on discharge. Home medication dose changed to Bumex 1 mg by mouth every morning. Patient advised to check weight every morning before breakfast, ideally after bowel movement. If patient has greater than 3 pound weight gain or if patient has swelling in his lower extremities, dyspnea on exertion, chest tightness, patient advised to take metolazone 2.5 mg tablet 1 as needed. Time spent with patient: discharge greater than 30 minutes Resuscitation Status: Full Code Discharge Plan - Discharge Disposition Discharge Date: 06/22/18 Disposition: 01 Discharged Home, Self-Care *Condition: Stable Reason For Visit (Visit label in EMR): Sepsis and Afib with RVR - Discharge Medications *Discharge Medications: New Carvedilol [Coreg] 12.5 mg PO BIDWM #60 tablet Metformin [Glucophage] 500 mg PO BIDWM #60 tab Metolazone [Zaroxolyn] 2.5 mg PO AM PRN #15 tablet PRN Reason: See Comments Below Pantoprazole Tab [Protonix Tab] 40 mg PO ACB #14 tablet Apixaban [Eliquis] 5 mg PO BID #0 tablet Continue Calcium Carbonate/Vitamin D3 [Calcium 500-Vit D3 200 Tablet] 2 each PO DAILY Loratadine 10 mg PO DAILY PRN PRN Reason: Allergy Symptoms Lisinopril [Prinivil] 40 mg PO DAILY Apixaban [Eliquis] 5 mg PO BID #60 tab DiltiaZEM CD [Cardizem CD 360 MG] 360 mg PO DAILY #30 cap Rosuvastatin [Crestor] 20 mg PO HS #30 tab Cyclobenzaprine [Flexeril] 10 mg PO HS Changed Bumetanide Tab [Bumex 1 mg Tab] 1 mg PO AM #30 tablet Discontinued Ranitidine [Zantac] 1 tab PO DAILY NIFEdipine [Nifedipine ER] 90 mg PO DAILY Carvedilol [Coreg] 1 tab PO BIDWM Aspirin *EC* [Ecotrin] 81 mg PO DAILY #30 tab DiltiaZEM CD [Cardizem CD 240 MG] 240 mg PO DAILY #30 cap hydroCHLOROthiazide [Hydrochlorothiazide] 0.5 tab PO DAILY - Discharge Packet/Instructions *Diet: Cardiac, ADA 2000 kcal diet. 1.5 L fluid restriction per day. *Activity: As tolerated *Pain Management/Treatment: Acetaminophen 500 mg by mouth every 46 hours as needed for pain *Wound Care: Not applicable Additional Instructions: Patient advised to check weight every morning before breakfast, ideally after bowel movement. If patient has greater than 3 pound weight gain or if patient has swelling in his lower extremities, dyspnea on exertion, chest tightness, patient advised to take metolazone 2.5 mg tablet 1 as needed. *Expected Signs/Symptoms: Continued symptomatic improvement. *Notify Physician if: Fever, chills, increased shortness of breath, intractable nausea, vomiting, abdominal pain, chest pain, palpitations, dizziness, blurred vision, diarrhea, fatigue, weakness, flank pain, dysuria, black tarry stools, bright red blood per rectum or any other concerning findings. *During Business Hours Contact: Your primary care provider, Dr. Lorri De Dios in [place], [place] *After Business Hours Contact: Call [facility] at [phone] and ask that the on-call physician be paged *Pending Lab/Results: Follow up w/your PCP - Referrals/Follow Up *Referrals/Follow Up: Lorri De Dios MD [Primary Care Provider] - Jerardo Gisbon MD [Physician] - Carlos Enrique Bush MD [Physician] - - Patient Handouts Patient Handouts: A-fib (Atrial Fibrillation) (GEN), Sepsis (GEN) - Dismissal Complete Discharge Instructions are:: Complete Physician Narrative - Narrative Attestation Narrative: Date: 06/22/18 Time: [id number]
[2018-06-22] MEDS ORDERED: CARVEDILOL 12.5 MG TABLET PO SCH (17:30)
== END 2018-06-22 15:07 | disposition home or self-care (01) | DRG 871 ==
LOC: SUATTDRO 15:45 → CCU 15:45 → MED 06-05 15:38
PROVIDERS: ADMIT Internal Medicine; ATTEND Internal Medicine
PROC: END.EGD (2018-06-16 08:10)